=== PATIENT | female | born 1955 | race Caucasian/White ===

== ENCOUNTER 2020-10-17 10:59 | Observation (INO) ==
[2020-10-17] MEDS ORDERED: SODIUM CHLORIDE 0.9% 1000ML 1,000 ML IV STA (11:23)
[2020-10-17] MEDS ORDERED: ALBUTEROL 0.083% NEBU SOLN 3 ML VIAL NEB STA (11:23)
--- NOTE | 2020-10-17 11:28 | Emergency Department Note ---
Impression & Plan COPD exacerbation, Hypoxia, Acute hyponatremia ED Provider Note NAME: ADALBRETO VALENTINE AGE: 65 SEX: F : 1955 ARRIVES VIA: Ambulance INFORMANT: Patient ED PROVIDER(S): Kg Gonzalez DO CHIEF COMPLAINT: Shortness of breath HPI: Patient is a 65-year-old female with a past medical history of smoking who presents to the ER for shortness of breath, cough, and congestion. Symptoms started about 2 months ago. They have worsened over the past 2 weeks. She adm its to chest tightness with this although it resolves with using her family members inhaler last night. Shortness of breath has been present for 2 weeks. Chest tightness has been present for the past 2 weeks as well. She notes she feels like she cannot take a deep breath. Denies any belly pain, nausea, vomiting, or diarrhea. No dysuria, urgency, or frequency. She was seen and evaluated at [facility] and had a pulse ox 89% and was sent over via ambulance. She was given an hour-long neb treatment as well as 40 mg of Solu-Medrol. ROS: See above HPI for pertinent positives & negatives. A total of 10 systems reviewed and were otherwise negative. PAST MEDICAL HISTORY:See Below PAST SURGICAL HISTORY:See Below FAMILY HISTORY:See Below SOCIAL HISTORY:See Below HOME MEDICATIONS:See Below ALLERGIES:See Below VITALS:See Below PHYSICAL EXAMINATION: GENERAL: Sitting up in bed, alert, chronically ill-appearing, disheveled, cachectic, mild distress EYE EXAM: normal conjunctiva. OROPHARYNX: no exudate, no erythema, lips, buccal mucosa, and tongue normal and mucous membranes are moist NECK: supple, no nuchal rigidity, no adenopathy, non-tender LUNGS: Diffuse wheezing bilaterally. Normal chest wall mechanics HEART: no murmurs, S1 normal and S2 normal ABDOMEN: abdomen soft, non-tender, normo-active bowel sounds, no masses, no rebound or guarding. BACK: Back is symmetrical on inspection and there is no deformity, no midline tenderness, no CVA tenderness. SKIN: no rashes and no bruising UPPER EXTREMITIES: upper extremities are grossly normal. LOWER EXTREMITIES: No pitting edema. NEURO EXAM: Normal sensorium, cranial nerves II-XII grossly intact, normal speech, no gross weakness of arms, no gross weakness of legs. MEDICAL DECISION MAKING: Patient is a 65-year-old female who presents to the ER for shortness of breath referred in from urgent care she was found to be hypoxic. IV was established blood was obtained. She was brought in by EMS and given steroids.Labs show no significant leukocytosis or anemia. BMP with mild hyponatremia. LFTs bilirubin and troponin was unremarkable. Lipase slightly elevated at 1000 but has no belly pain. Covid was negative. Has diffuse wheezing bilaterally on exam. It is audible from across the room. She was given hour-long neb treatment as well as steroids and chest x-ray showed no focal infiltrate. She was updated bedside. She was hypoxic at 86% and remained on 2 L nasal cannula while in the ER. She was admitted for further work-up. Triage Nursing notes reviewed. Limited review of prior medical records performed Vital Signs: reviewed and remarkable for HTN Differential diagnosis: Differential diagnoses includes but is not limited to pneumonia, bronchitis, COPD/Asthma exacerbation, pneumothorax, pulmonary embolism, congestive heart failure, acute coronary syndrome ER treatment provided: See below Diagnostics interpreted by me: ECG: Sinus rhythm rate 72 Low voltage QTC 361 T wave flattening in the inferior leads Cardiac Monitoring: An order was placed for continuous cardiac monitoring. The monitor shows a rate of 70 with sinus rhythm. Laboratory studies: As stated above and show below. 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) Surgical History History of fusion of cervical spine History of lumbar surgery Family History Father Heart disease Social History Smoking Status: Current every day smoker Tobacco Type: Cigarettes Cigarettes Per Day: half a pack; Second Hand Exposure: No; Hx Alcohol Use: No Hx Substance Use: Yes Last Used Substance: Just Prior to Arrival Last Used Substance Other:: 10/16/20 last night Substance Use Type Other:: Medical Marijuana/CBD Preferred Language: [place] Citizen Communication Ability: Effective [employer] [place] Required: No Beliefs That Will Affect Care: None Current Living Situation: Family Feels Safe at Home: Yes Assistive Devices: Contacts and Denture - Upper Allergies Allergies Allergy/AdvReac Type Severity Reaction Status Date / Time No Known Allergies Allergy Unknown Verified 10/17/20 14:11 Home Meds Home Medications Medication Instructions Recorded Confirmed tramadol 50 mg tablet (Ultram) 50 mg PO Q4H PRN 10/17/20 10/17/20 Results & Data (ED) Vital Signs Vital Signs - 24 hr 10/17/20 11:04 10/17/20 11:24 10/17/20 11:30 Temperature 36.6 C Temperature Source Oral Pulse Rate 86 88 76 Pulse Rate [Left Finger] Pulse Rate from SpO2 Sensor 85 76 Respiratory Rate 19 20 18 Respiratory Effort / Characteristics Blood Pressure 162/94 H 134/79 Blood Pressure Mean 116 97 Pulse Oximetry 93 99 92 Oxygen Delivery Method Room Air Nebulizer Room Air Oxygen Flow Rate Sepsis Recent Fever Within 48 Hours No Sepsis New/Unexplained Change in Mental Status No Sepsis Action Taken by Nursing No Action Required Oxygen Flow Rate - Titration Pulse Oximetry Post Tiitration 10/17/20 11:33 10/17/20 11:44 10/17/20 12:00 Temperature Temperature Source Pulse Rate 78 Pulse Rate [Left Finger] 82 Pulse Rate from SpO2 Sensor 78 Respiratory Rate 20 20 Respiratory Effort / Characteristics Spontaneous Blood Pressure 141/85 H Blood Pressure Mean 103 Pulse Oximetry 87 L 95 99 Oxygen Delivery Method Nasal Cannula Nasal Cannula Nebulizer Oxygen Flow Rate 4 Sepsis Recent Fever Within 48 Hours Sepsis New/Unexplained Change in Mental Status Sepsis Action Taken by Nursing Oxygen Flow Rate - Titration 4 Pulse Oximetry Post Tiitration 94 10/17/20 12:30 10/17/20 13:23 10/17/20 13:30 Temperature Temperature Source Pulse Rate 85 Pulse Rate [Left Finger] Pulse Rate from SpO2 Sensor 86 90 Respiratory Rate 20 Respiratory Effort / Characteristics Blood Pressure 146/75 H Blood Pressure Mean 98 Pulse Oximetry 87 L 90 94 Oxygen Delivery Method Room Air Nasal Cannula Nasal Cannula Oxygen Flow Rate 4 4 Sepsis Recent Fever Within 48 Hours Sepsis New/Unexplained Change in Mental Status Sepsis Action Taken by Nursing Oxygen Flow Rate - Titration Pulse Oximetry Post Tiitration Laboratory Data Result diagrams: 10/17/20 11:31 10/17/20 11:31 Lab Results 08/24/21 08/24/21 08/24/21 Range/Units 11:31 11:31 11:31 WBC 9.63 (4.8-10.8) K/uL RBC 4.40 (4.2-5.4) M/uL Hgb 14.1 (12.0-16.0) g/dL Hct 41.0 (37-47) % MCV 93.2 (80-100) fL MCH 32.0 (25-34) pg MCHC 34.4 (32-36) g/dL RDW Std Deviation 46.9 H (36.4-46.3) fL RDW Coeff of José Miguel 13.7 (11.5-14.5) % Plt Count 350 (130-400) K/uL MPV 9.4 (7.4-10.4) fL Immature Gran % (Auto) 0.1 % Neut % (Auto) 67.2 % Lymph % (Auto) 24.2 % [place] % (Auto) 7.7 % Eos % (Auto) 0.4 % Baso % (Auto) 0.4 % Neut # (Auto) 6.47 (1.4-6.5) K/uL Lymph # (Auto) 2.33 (1.2-3.4) K/uL [place] # (Auto) 0.74 H (0.11-0.59) K/uL Eos # (Auto) 0.04 (0-0.5) K/uL Baso # (Auto) 0.04 (0-0.2) K/uL Immature Gran # (Auto) 0.01 (0.00-0.02) K/uL APTT 26.7 (21.0-31.0) Seconds PTT Ratio 1.0 Sodium 134 L (136-145) mmol/L Potassium 4.2 (3.5-5.1) mmol/L Chloride 100 (98-107) mmol/L Carbon Dioxide 25 (21-32) mmol/L Anion Gap 9.0 (3-11) BUN 8 (7-18) mg/dl Creatinine 0.41 L (0.6-1.2) mg/dl Est Cr Clr Drug Dosing 130.4 ml/min Est GFR ( Amer) 127.4 ml/min Est GFR (Non-Af Amer) 110.0 ml/min BUN/Creatinine Ratio 19.2 (10-20) Glucose 105 H (70-99) mg/dl Calcium 9.2 (8.5-10.1) mg/dl Total Bilirubin 0.3 (0.2-1) mg/dl AST 26 (15-37) U/L ALT 33 (12-78) U/L Alkaline Phosphatase 77 (45-117) U/L Troponin I < 0.015 (0-0.045) ng/ml Total Protein 7.1 (6.4-8.2) gm/dl Albumin 3.7 (3.4-5.0) gm/dl Globulin 3.4 (2.5-4.0) gm/dl Albumin/Globulin Ratio 1.1 (0.9-2) Lipase 966 H (73-393) U/L COVID-19 Eval Order SARS-CoV-2 (PCR) (Negative) 10/17/20 10/17/20 Range/Units 11:56 11:56 WBC (4.8-10.8) K/uL RBC (4.2-5.4) M/uL Hgb (12.0-16.0) g/dL Hct (37-47) % MCV (80-100) fL MCH (25-34) pg MCHC (32-36) g/dL RDW Std Deviation (36.4-46.3) fL RDW Coeff of José Miguel (11.5-14.5) % Plt Count (130-400) K/uL MPV (7.4-10.4) fL Immature Gran % (Auto) % Neut % (Auto) % Lymph % (Auto) % [place] % (Auto) % Eos % (Auto) % Baso % (Auto) % Neut # (Auto) (1.4-6.5) K/uL Lymph # (Auto) (1.2-3.4) K/uL [place] # (Auto) (0.11-0.59) K/uL Eos # (Auto) (0-0.5) K/uL Baso # (Auto) (0-0.2) K/uL Immature Gran # (Auto) (0.00-0.02) K/uL APTT (21.0-31.0) Seconds PTT Ratio Sodium (136-145) mmol/L Potassium (3.5-5.1) mmol/L Chloride (98-107) mmol/L Carbon Dioxide (21-32) mmol/L Anion Gap (3-11) BUN (7-18) mg/dl Creatinine (0.6-1.2) mg/dl Est Cr Clr Drug Dosing ml/min Est GFR ( Amer) ml/min Est GFR (Non-Af Amer) ml/min BUN/Creatinine Ratio (10-20) Glucose (70-99) mg/dl Calcium (8.5-10.1) mg/dl Total Bilirubin (0.2-1) mg/dl AST (15-37) U/L ALT (12-78) U/L Alkaline Phosphatase (45-117) U/L Troponin I (0-0.045) ng/ml Total Protein (6.4-8.2) gm/dl Albumin (3.4-5.0) gm/dl Globulin (2.5-4.0) gm/dl Albumin/Globulin Ratio (0.9-2) Lipase (73-393) U/L COVID-19 Eval Order Covid19 at [facility] SARS-CoV-2 (PCR) NEGATIVE (Negative) Administered Medications Discontinued Medications Albuterol (Albuterol 0.083% Nebu Soln 3 Ml Vial) 10 mg NEB NOW STA Stop: 10/17/20 11:24 Last Admin: 10/17/20 11:43 Dose: 10 mg Documented by: [id number] Azithromycin (Azithromycin 250 Mg Tab) 500 mg PO NOW ONE Stop: 10/17/20 13:55 Last Admin: 10/17/20 14:36 Dose: 500 mg Documented by: [id number] Sodium Chloride (Nss 1000ml) 1,000 mls @ 999 mls/hr IV .Q1H1M STA Stop: 10/17/20 12:23 Last Infusion: 10/17/20 12:31 Dose: 0 mls/hr Documented by: [id number] Admin: 10/17/20 11:30 Dose: 999 mls/hr Documented by: [id number] Prednisone (Prednisone 50 Mg Tab) 40 mg PO NOW STA Stop: 10/17/20 13:55 Last Admin: 10/17/20 14:38 Dose: Not Given Documented by: [id number] Prednisone (Prednisone 20 Mg Tab) Confirm Administered Dose 40 mg .ROUTE .STK- MED ONE Stop: 10/17/20 14:36 Last Admin: 10/17/20 14:36 Dose: 40 mg Documented by: [id number] Tramadol HCl (Tramadol Hcl 50 Mg Tablet) 50 mg PO NOW STA Stop: 10/17/20 13:33 Last Admin: 10/17/20 13:52 Dose: 50 mg Documented by: [id number] Imaging Data Radiologist's Impression: Chest X-Ray 10/17/20 11:24 XR chest 1V portable HISTORY: 65 years-old Female Chest Pain acute atypical chest pain COMPARISON: Chest radiograph 01/22/2015 TECHNIQUE: Portable AP view of the chest FINDINGS: Cardiac mediastinal and hilar silhouettes are within normal limits. No pneumothorax, pleural effusion, airspace consolidation or overt pulmonary edema. Degenerative changes of the shoulders and spine. Thoracolumbar and cervical spinal fusion hardware. IMPRESSION: No acute process. ACT 112: Negative or not required by law. The above report was generated using voice recognition software. It may contain grammatical, syntax or spelling errors. Electronically signed by: Con Jacobson M.D. 10/17/2020 11:55 AM Discharge Plan Visit Data Chief Complaint: Shortness of Breath/Dyspnea ED Provider: Kg Gonzalez Discharge Problem: COPD exacerbation, Hypoxia, Acute hyponatremia Patient Disposition: Admitted As Inpatient Discharge Instructions Interventions: ED Discharge Assessment Last Done: 10/17/20 15:46
[2020-10-17 11:39] LABS: Basophils # (auto) 0.04 K/uL (0-0.2); Basophils % (auto) 0.4 %; Eosinophils # (auto) 0.04 K/uL (0-0.5); Eosinophils % (auto) 0.4 %; Hemoglobin 14.1 g/dL (12.0-16.0); Immature Granulocytes # (auto) 0.01 K/uL (0.00-0.02); Immature Granulocytes % (auto) 0.1 %; Lymphocytes # (auto) 2.33 K/uL (1.2-3.4); Lymphocytes % (auto) 24.2 %; Mean Corpuscular Hgb Conc 34.4 g/dL (32-36); Mean Corpuscular Volume 93.2 fL (80-100); Mean Platelet Volume 9.4 fL (7.4-10.4); Monocytes # (auto) 0.74 K/uL (0.11-0.59); Monocytes % (auto) 7.7 %; Neutrophils # (auto) 6.47 K/uL (1.4-6.5); Neutrophils % (auto) 67.2 %; Platelet Count 350 K/uL (130-400); RDW Coefficient of Variation 13.7 % (11.5-14.5); RDW Standard Deviation 46.9 fL (36.4-46.3); White Blood Count 9.63 K/uL (4.8-10.8)
[2020-10-17 11:52] LABS: Partial Thromboplastin Time 26.7 Seconds (21.0-31.0)
--- NOTE | 2020-10-17 11:56 | XRay Report ---
XR chest 1V portable HISTORY: 65 years-old Female Chest Pain acute atypical chest pain COMPARISON: Chest radiograph 01/22/2015 TECHNIQUE: Portable AP view of the chest FINDINGS: Cardiac mediastinal and hilar silhouettes are within normal limits. No pneumothorax, pleural effusion , airspace consolidation or overt pulmonary edema. Degenerative changes of the shoulders and spine. T horacolumbar and cervical spinal fusion hardware. IMPRESSION: No acute process. ACT 112: Negative or not required by law. The above report was generated using voice recognition software. It may contain grammatical, syntax o r spelling errors. Electronically signed by: Con Jacobson M.D. 10/17/2020 11:55 AM
[2020-10-17 12:06] LABS: Alanine Aminotransferase 33 U/L (12-78); Albumin Level 3.7 gm/dl (3.4-5.0); Aspartate Aminotransferase 26 U/L (15-37); BUN Creatinine Ratio 19.2 (10-20); Blood Urea Nitrogen 8 mg/dl (7-18); Calcium 9.2 mg/dl (8.5-10.1); Carbon Dioxide 25 mmol/L (21-32); Chloride 100 mmol/L (98-107); Creatinine Clr Calc Pharmacy 130.4 ml/min; Est GFR (African American) 127.4 ml/min; Glucose 105 mg/dl (70-99); Lipase 966 U/L (73-393); Potassium 4.2 mmol/L (3.5-5.1); Sodium 134 mmol/L (136-145)
[2020-10-17 12:11] LABS: Albumin Globulin Ratio 1.1 (0.9-2); Alkaline Phosphatase 77 U/L (45-117); Bilirubin,Total 0.3 mg/dl (0.2-1); Globulin 3.4 gm/dl (2.5-4.0); Total Protein 7.1 gm/dl (6.4-8.2); Troponin I < 0.015 ng/ml (0-0.045)
[2020-10-17] MEDS ORDERED: traMADol HCL 50 MG TABLET PO STA (13:32)
[2020-10-17] MEDS ORDERED: AZITHROMYCIN 250 MG TAB PO ONE (13:54)
[2020-10-17] MEDS ORDERED: predniSONE 50 MG TAB PO STA (13:54)
--- NOTE | 2020-10-17 14:07 | History & Physical Report ---
Date of Service October 17, 2020 Assessment & Plan (1) COPD exacerbation: Plan: Most likely diagnosis given her 40+ pack-year smoking hx (1 ppd x 40 years). CXR on 10/17 was clear of infection. - Prednisone 40 mg PO daily x 5 days - Azithromycin x 5 days - DuoNebs standing and PRN - Supplemental O2 as needed (presently on 2L with O2 sat of 94%) - Likely discharge on Spiriva or other first-line COPD therapy (2) Anxiety: Plan: Tearful affect during my interview. Not on any home meds. - Reassurance (3) Chronic low back pain: Plan: Has had 13 surgeries of cervical to lumbar spine per patient. Was planning to get next surgery (of lumbar spine) on Friday in [place]. Has also seen Dr. Arthur in the past. No indication of acute change in this. No red flag symptoms to indicate spinal cord compromise. - Continue home tramadol PRN (4) Elevated lipase: Plan: Lipase elevated to 966 on admission. No report of abdominal pain to me. No recent hx of alcohol use per patient. Incidental finding. - No f/u required (5) DVT prophylaxis: Plan: Lovenox 40 mg SQ daily History of Present Illness Primary Care Provider: NO PCP 65yo F w/ hx of spinal issues (cervical to lumbar chronic pain) who presents with likely COPD exacerbation. She reports shortness of breath for at least 2 months. It initially presented with sinus pressure and congestion. She was seen by her ENT doctor who said she had a sinus infection and started her on "3 weeks" of antibiotics which did not improve her sinus congestion or her breathing. She was then seen by urgent care who prescribed another antibiotic (she is not sure which one) along with what sounds like Tessalon Perles (small capsule for cough) which also did not help. She went to urgent care again today where she was found to be hypoxemic and sent to the ER. She reports some transient improvement with her breathing treatment in the ER, but reports she feels back to feeling fairly bad at this time. She reports some productive sputum with her coughing. Denies f/c/ns. Denies n/v, denies lightheadedness or dizziness, denies GI symptoms. 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) Surgical History History of fusion of cervical spine History of lumbar surgery Family History Father Heart disease Social History Smoking Status: Current every day smoker Tobacco Type: Cigarettes Feels Safe at Home: Yes Review of Systems Review of Systems: All systems reviewed & are unremarkable except as noted in HPI & below Physical Exam Constitutional: WD/WN, vitals as above + acute distress Eyes: EOM intact bilaterally; no conjunctival abnormality ENMT: external ear and nose normal, oropharynx normal Neck: trachea midline, no thyromegaly normal visual inspection Respiratory: + labored breathing, + cough and + tachypneic Auscultation: + wheezes (Diffuse end-expiratory wheezing) Cardiovascular: RRR, no murmur, no edema Gastrointestinal (Abdomen): Inspection/Auscultation: abdomen normal to inspection; abdomen not distended Musculoskeletal: no cyanosis or clubbing, extremities motor strength 5/5 Skin: no rashes, warm and dry Neurologic: moves all extremities and awake Psychiatric: Orientation: alert, oriented to person and cooperative Results & Data Results & Data ([facility]) Vital Signs (Past 12 Hours) Vital Signs Temp Pulse Pulse Resp BP Pulse Ox 10/17/20 12:30 85 20 146/75 H 87 L 10/17/20 12:00 78 20 141/85 H 99 10/17/20 11:44 82 20 95 10/17/20 11:33 87 L 10/17/20 11:30 76 18 134/79 92 10/17/20 11:24 88 20 99 10/17/20 11:04 36.6 C 86 19 162/94 H 93 Code Status & VTE Plan VTE Prophylaxis Plan VTE Prophylaxis will be ordered: Yes PG Care Time/CCT Total # of Minutes Spent Total Time Spent with Patient: Total time spent is greater than 50% in coordination of care (as documented) at patient's floor/unit and/or counseling patient: Coding Level of Care Code INT OBSERVATION CARE 70M LVL 3 Diagnoses COPD exacerbation J44.1 Anxiety F41.9 Chronic low back pain M54.5; G89.29 DVT prophylaxis Z29.9 Elevated lipase R74.8
[2020-10-17] MEDS ORDERED: predniSONE 20 MG TAB ONE (14:35)
[2020-10-17] MEDS ORDERED: ACETAMINOPHEN 325 MG TAB PO PRN (16:23)
[2020-10-17] MEDS ORDERED: ONDANSETRON INJ 2 MG/ML 2 ML VIAL IV PRN (16:23)
[2020-10-17] MEDS ORDERED: ALBUT/IPRATROP 3MG/0.5MG NEB 3 ML VIAL NEB PRN (16:23)
[2020-10-17] MEDS: traMADol HCL 50 MG TABLET PO PRN ×2 (17:12→21:05)
[2020-10-17] MEDS: NICOTINE 21 MG/24 HR TDSY TD SCH (17:36)
[2020-10-17] MEDS: ALBUT/IPRATROP 3MG/0.5MG NEB 3 ML VIAL NEB SCH ×2 (17:58→19:46)
[2020-10-17] MEDS ORDERED: ENOXAPARIN INJ 40 MG/0.4 ML SYR SQ SCH (18:00)
[2020-10-17] MEDS ORDERED: hydrOXYzine HCl 10 MG TAB PO ONE (20:41)
[2020-10-18] MEDS: traMADol HCL 50 MG TABLET PO PRN ×4 (00:21→12:39)
[2020-10-18 06:54] LABS: Hematocrit (blood only) 40.4 % (37-47); Mean Corpuscular Hemoglobin 31.8 pg (25-34); Mean Corpuscular Hgb Conc 34.7 g/dL (32-36); Mean Corpuscular Volume 91.8 fL (80-100); Mean Platelet Volume 9.7 fL (7.4-10.4); Platelet Count 328 K/uL (130-400); RDW Coefficient of Variation 13.7 % (11.5-14.5); RDW Standard Deviation 46.6 fL (36.4-46.3)
[2020-10-18 07:18] LABS: BUN Creatinine Ratio 26.3 (10-20); Calcium 9.1 mg/dl (8.5-10.1); Creatinine Clr Calc Pharmacy 130.1 ml/min; Est GFR (African American) 127.4 ml/min; Magnesium 2.1 mg/dl (1.8-2.4)
[2020-10-18] MEDS: ALBUT/IPRATROP 3MG/0.5MG NEB 3 ML VIAL NEB SCH ×2 (07:29→11:31)
[2020-10-18] MEDS: NICOTINE 21 MG/24 HR TDSY TD SCH (08:56)
[2020-10-18] MEDS ORDERED: predniSONE 20 MG TAB PO SCH (09:00)
[2020-10-18] MEDS ORDERED: AZITHROMYCIN 250 MG TAB PO SCH (09:00)
--- NOTE | 2020-10-18 13:10 | Discharge Summary ---
Date of Service October 18, 2020 Admission HPI Per Admitting Provider 65yo F w/ hx of spinal issues (cervical to lumbar chronic pain) who presents with likely COPD exacerbation. She reports shortness of breath for at least 2 months. It initially presented with sinus pressure and congestion. She was seen by her ENT doctor who said she had a sinus infection and started her on "3 weeks" of antibiotics which did not improve her sinus congestion or her breathing. She was then seen by urgent care who prescribed another antibiotic (she is not sure which one) along with what sounds like Tessalon Perles (small capsule for cough) which also did not help. She went to urgent care again today where she was found to be hypoxemic and sent to the ER. She reports some transient improvement with her breathing treatment in the ER, but reports she feels back to feeling fairly bad at this time. She reports some productive sputum with her coughing. Denies f/c/ns. Denies n/v, denies lightheadedness or dizziness, denies GI symptoms. Principal Diagnosis COPD Exacerbation, acute bronchitis, Hypoxia Discharge Exam Constitutional WD/WN, vitals as above Eyes + anicteric sclerae ENMT external ear and nose normal, oropharynx normal Neck trachea midline, no thyromegaly Respiratory normal respiratory effort and + cough; no labored breathing Auscultation: + wheezes (Bilateral); no crackles and no rhonchi Cardiovascular RRR, no murmur, no edema Chest (Breasts) Chest: normal inspection of chest Gastrointestinal (Abdomen) normal bowel sounds, soft, nontender, no hepatosplenomegaly Musculoskeletal Extremities: extremities normal to inspection; no cyanosis and no clubbing Skin no rashes, warm and dry Neurologic moves all extremities and awake; no focal motor deficits Psychiatric A+Ox3, euthymic affect Lymphatic no lymphedema Discharge Data Allergies Allergy/AdvReac Type Severity Reaction Status Date / Time No Known Allergies Allergy Unknown Verified 10/17/20 14:11 Consultations 10/17/20 13:31 ED Decision to Admit Stat Ordered Studies Chest X-Ray 10/17/20 11:24 XR chest 1V portable HISTORY: 65 years-old Female Chest Pain acute atypical chest pain COMPARISON: Chest radiograph 01/22/2015 TECHNIQUE: Portable AP view of the chest FINDINGS: Cardiac mediastinal and hilar silhouettes are within normal limits. No pneumothorax, pleural effusion, airspace consolidation or overt pulmonary edema. Degenerative changes of the shoulders and spine. Thoracolumbar and cervical spinal fusion hardware. IMPRESSION: No acute process. ACT 112: Negative or not required by law. The above report was generated using voice recognition software. It may contain grammatical, syntax or spelling errors. Electronically signed by: Con Jacobson M.D. 10/17/2020 11:55 AM Hospital Course (1) COPD exacerbation: Most likely diagnosis given her 40+ pack-year smoking hx (1 ppd x 40 years). CXR on 10/17 was clear of infection. Improved by the next day, still with wheezing but felt well enough to go home, not hypoxic - Prednisone 40 mg PO daily was started and will be continued for 5 days total - Azithromycin x 5 days to be completed after discharge - DuoNebs standing and PRN was given here and she will be sent home with an albuterol inhaler -Counseled on smoking cessation - Supplemental O2 initially required but weaned off and was able to walk around without hypoxia on the day of discharge -Hydrocodone cough syrup prescribed on discharge -Will need close follow-up with PCP (2) Anxiety: Worsened recently by situational anxiety, recently moved back to the area - Reassurance given Follow-up PCP (3) Chronic low back pain: Has had 13 surgeries of cervical to lumbar spine per patient. Was planning to get next surgery (of lumbar spine) on Friday in [place]. Has also seen Dr. Arthur in the past. No indication of acute change in this. No red flag symptoms to indicate spinal cord compromise. - Continue home tramadol PRN-she needs to get set up with new PCP that we will prescribe this (4) Elevated lipase: Lipase elevated to 966 on admission. No report of abdominal pain to me. No recent hx of alcohol use per patient. Incidental finding. Improved to normal the next day Follow-up as an outpatient (5) DVT prophylaxis: Lovenox 40 mg SQ daily Discharge to home Total Time Total Time Spent Total Time Spent (In Minutes): 35 minutes Discharge Plan Discharge Items Patient Disposition: Home - Self-Care Reason For Visit: COPD EXACERBATION Discharge Diagnosis: COPD Exacerbation, Acute bronchitis. Hypoxia Condition on Discharge: Fair Activity: As commented below Lifting: Gradually increase as tolerated Bathing: No limitations Exercise/Sports: Gradually increase as tolerated Driving/Machine Use: No limitations Weightbearing: Full weightbearing Non-emergency contact: Primary Care Provider Call non-emergency contact if: you have any medication questions and your symptoms worsen Follow-up/Referrals: Carson Baldwin CRNP [Primary Care Provider] - 10/24/20 9:00 am (Your primary care provider will be SYLVIE Roche, with [facility] in [place]. You have an appointment to see him scheduled for next Friday, 10/24, at 9am. ) Diet: Regular Addtl Attending Provider Instructions: You were admitted with shortness of breath and cough from acute bronchitis and COPD exacerbation. Please continue the course of prednisone as a steroid to help calm down the inflammation in your lungs. Finish out the course of antibiotics with azithromycin as prescribed. You can use the albuterol inhaler 2 puffs every 4 hours as needed for shortness of breath or wheezing/cough. It is very important that you continue to NOT SMOKE cigarettes. You can continue to use Nicotine patches, gum, and lozenges to help you with this. You will need to wear oxygen at 1 L via the nasal cannula at all times at rest, and increase your oxygen to 3 L with any exertion. Your doctor can tell you when it is ok to wean down on your oxygen requirement. Please follow up with your new PCP as scheduled for you. Pending Studies at Discharge: No Stand-Alone Forms: My [facility], Smoking Cessation Medications and DC Order Prescriptions: New azithromycin 250 mg Tablet 250 mg PO QAM Qty: 3 RF: 0 nicotine [Nicoderm CQ] 21 mg/24 hr Patch 24 Hour 21 mg transdermal QAM Qty: 14 RF: 0 prednisone 10 mg tablet 40 mg PO DAILY Qty: 30 RF: 0 hydrocortisone 1 % Ointment 1 applic EXT BID Qty: 28.35 RF: 0 albuterol sulfate 90 mcg/actuation HFA aerosol inhaler 2 inh inhalation Q4H PRN (Reason: shortness of breath or wheezing) Qty: 8.5 RF: 0 hydrocodone-homatropine [Hycodan (with homatropine)] 5-1.5 mg/5 mL syrup 5 ml PO Q6H PRN (Reason: cough) Qty: 473 RF: 0 Continued tramadol [Ultram] 50 mg Tablet 50 mg PO Q4H PRN (Reason: Pain) RF: 0 No Action Incruse Ellipta 62.5 mcg/actuation blister with device 1 inh inhalation DAILY Qty: 30 RF: 2 Discharge Orders: Discharge Order (Routine); Ordered 10/18/20 Ordered By: Rachana Mckeon Admission Data Admit Date/Time: 10/17/20 13:54 Attending Provider: Rachana Mckeon Admit Provider: Elroy Alvarez Primary Care Provider: Carson Baldwin Other Providers: Elroy Alvarez Other Interventions: Discharge Summary Assessment (RN) Last Done: 10/18/20 13:11 Coding Level of Care Code 46974 OBS Care - Discharge Diagnoses COPD exacerbation J44.1 Anxiety F41.9 Chronic low back pain M54.5; G89.29 Elevated lipase R74.8 DVT prophylaxis Z29.9
[2020-10-18] MEDS ORDERED: HYDROCORTISONE 1% CRM 30 GM TUBE EXT SCH (13:30)
[2020-10-18] MEDS ORDERED: LEVALBUTEROL HCL 1.25 MG/3 ML NEB NEB SCH (15:00)
--- NOTE | 2020-10-20 15:25 | Electrocardiogram Report ---
Test Reason : Blood Pressure : / mmHG Vent. Rate : 072 BPM Atrial Rate : 072 BPM P-R Int : 150 ms QRS Dur : 076 ms QT Int : 336 ms P-R-T Axes : 080 029 019 degrees QTc Int : 367 ms Normal sinus rhythm Possible Left atrial enlargement Low voltage QRS Borderline ECG When compared with ECG of 10-FEB-2014 13:49, Questionable change in QRS axis Confirmed by Max Gong ([id number]) on 10/20/2020 3:25:28 PM Referred By: REFERRED SELF Confirmed By:Max Gong
== END 2020-10-18 15:17 | disposition home or self-care (01) ==
LOC: ED 10:59 → 3W 10:59 → SUATTDRO 13:54 → 3W 15:46
DX: Z20.822 Contact with and (suspected) exposure to COVID-19; E87.1 Hypo-osmolality and hyponatremia; J44.0 Chronic obstructive pulmonary disease with (acute) lower respiratory infection; M54.5 Low back pain; J44.1 Chronic obstructive pulmonary disease with (acute) exacerbation; G89.29 Other chronic pain; F17.210 Nicotine dependence, cigarettes, uncomplicated

== ENCOUNTER 2021-09-23 09:15 | Inpatient (IN) ==
[2021-09-23] MEDS ORDERED: MoRPHine SULFATE 4 MG/ML 1 ML CARP\\VIAL IV STA (10:06)
--- NOTE | 2021-09-23 10:10 | Emergency Department Note ---
History of Present Illness General Chief Complaint: Back Injury/Pain Stated Complaint: UPPER BACK PAIN Time Seen by Provider: 09/23/21 09:45 History of Present Illness Provider Complaint: back pain Onset (ago): year(s) Duration: constant Similar Symptoms Previously: Yes Location: lumbar spine and thoracic spine Quality: + sharp, + dull, + stabbing, + crushing, + aching, + tingling, + spasming and + throbbing Radiation: other (chest) Severity: severe Current Pain Intensity: 9 Relieved By: + none Exacerbated By: + none Context: no history of kidney stones or no IV drug use Associated symptoms: + chills; no fatigue, no syncope, no difficulty walking, no loss of sensation in lower extremities, no increased urinary urgency, no increased urinary frequency, no urinary incontinence, no fecal incontinence, no a change in bowel habits, no fever, no abdominal pain, no dysuria or no hematuria Home Medications Medication Instructions Recorded Confirmed Type clindamycin phosphate 1 % topical 1 applic topical DAILY #30 mL 03/21/21 06/25/21 Rx solution cyclobenzaprine 5 mg tablet 5 mg PO TID PRN muscle spasm #20 06/13/21 06/25/21 Rx tabs albuterol sulfate 90 mcg/actuation 2 puff inhalation Q6H PRN 06/25/21 06/25/21 Rx aerosol inhaler shortness of breath or wheezing #18 grams azithromycin 250 mg tablet See Rx Instructions PO .COMPLEX #6 06/25/21 06/25/21 Rx tabs compressor, for nebulizer #1 ea 06/25/21 06/25/21 Rx fluticasone fur. 100 mcg-umeclid 1 inh inhalation Q24H #60 ea 06/25/21 06/25/21 Rx 62.5 mcg-vilant 25 mcg inhalat.powder (Trelegy Ellipta) prednisone 20 mg tablet 40 mg PO DAILY 5 days #10 tabs 06/25/21 06/25/21 Rx albuterol sulfate 1.25 mg/3 mL 1.25 mg (3 mL) inhalation QID PRN 06/29/21 Rx solution for nebulization shortness of breath or wheezing #90 mL duloxetine 30 mg capsule,delayed 30 mg PO DAILY #30 caps 07/16/21 Rx release duloxetine 60 mg capsule,delayed 60 mg PO DAILY #30 caps 07/16/21 Rx release Allergies Allergy/AdvReac Type Severity Reaction Status Date / Time buprenorphine [From Suboxone] Allergy Mild itching Verified 06/25/21 16:00 naloxone [From Suboxone] Allergy Mild itching Verified 06/25/21 16:00 Past Med/Surg History Medical History Anxiety COPD (chronic obstructive pulmonary disease) Depression 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 Left anterior C7 fusion screw protrudes into the prevertebral soft tissue 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) Lumbar pseudoarthrosis Lumbar spondylosis Surgical History History of fusion of cervical spine History of lumbar surgery Family History Father Heart disease Myocardial infarction Denies family history of Ovarian cancer Prostate cancer Lung cancer Colorectal cancer Social History Smoking Status: Current every day smoker Tobacco Type: Cigarettes Age Quit Using Tobacco: 65; packs per day: 0.5; Years Smoked: 40; Cigarettes Per Day: half a pack; Second Hand Exposure: No; Hx Alcohol Use: No Hx Substance Use: No Preferred Language: Khmer Communication Ability: Effective Visual Impairment: No Limitations Portfolio Administrator Required: No Beliefs That Will Affect Care: None marital status: Single Current Living Situation: Family current occupational status: disabled Feels Safe at Home: Yes Childhood Exposure to Second-Hand Smoke: Yes caffeine: Yes (coffee) during the past year weight has: remained stable Dental Care, Regularly: Yes Physical Activity Frequency: Daily Seatbelt Use: always Sunscreen Use: Yes Assistive Devices: Contacts, Denture - Upper and Glasses Review of Systems A total of 10 systems reviewed and were otherwise negative Physical Exam Vital Signs Vital Signs - 24 hr 09/23/21 10:01 09/23/21 10:02 09/23/21 10:07 Temperature 37.1 C 36.8 C Temperature Source Skin Oral Pulse Rate 88 70 Pulse Rate [Right Finger] 73 Pulse Rhythm Regular Pulse Rhythm [Right Finger] Regular Pulse Strength Normal Pulse Strength [Right Finger] Normal Respiratory Rate 20 18 17 Respiratory Effort / Characteristics Non-Labored Spontaneous Non-Labored Spontaneous Non-Labored Spontaneous Respiratory Depth Normal Normal Normal Respiratory Pattern Regular Regular Blood Pressure 177/95 H 108/75 Blood Pressure [Right Arm] 108/75 Blood Pressure Mean 122 86 Blood Pressure Mean [Right Arm] 86 Blood Pressure Position Lying Blood Pressure Position [Right Arm] Lying Pulse Oximetry 93 96 96 Oxygen Delivery Method Room Air Room Air Room Air Sepsis Recent Fever Within 48 Hours No No Sepsis New/Unexplained Change in Mental Status N/A No Sepsis Action Taken by Nursing No Action Required No Action Required 09/23/21 11:18 09/23/21 13:00 09/23/21 13:35 Temperature Temperature Source Pulse Rate Pulse Rate [Right Finger] 86 Pulse Rhythm Pulse Rhythm [Right Finger] Regular Pulse Strength Pulse Strength [Right Finger] Respiratory Rate 20 20 Respiratory Effort / Characteristics Non-Labored Respiratory Depth Normal Respiratory Pattern Blood Pressure Blood Pressure [Right Arm] 121/96 Blood Pressure Mean Blood Pressure Mean [Right Arm] 104 Blood Pressure Position Blood Pressure Position [Right Arm] Pulse Oximetry 97 96 Oxygen Delivery Method Room Air Room Air Room Air Sepsis Recent Fever Within 48 Hours Sepsis New/Unexplained Change in Mental Status Sepsis Action Taken by Nursing Physical Exam GENERAL: She is oriented to person, place, and time. She appears well-developed and well-nourished. She does not appear distressed. HENT: Exam performed. -Head: Normocephalic and atraumatic. -Right Ear: External ear normal. No mastoid tenderness. -Left Ear: External ear normal. No mastoid tenderness. -Mouth/Throat: The oropharynx is clear and moist. No trismus in the jaw. No dental abscesses or uvula swelling. No oropharyngeal exudate or tonsillar abscesses. EYES: Conjunctivae and EOM are normal. Pupils are equal, round, and reactive to light. Right eye exhibits no discharge. Left eye exhibits no discharge. No scleral icterus. NECK: Normal range of motion. Neck supple. No JVD present. No spinous process tenderness present. No carotid bruit present. No rigidity. No tracheal deviation and normal range of motion present. No Brudzinski's sign and no Kernig's sign noted. CV: Normal rate, regular rhythm, normal heart sounds and intact distal pulses. There is no peripheral edema. Palpable radial pulses bue. PULM/CHEST: Effort normal and breath sounds normal. No respiratory distress. No stridor. She has no wheezes. She has no rales. -Chest Wall: She exhibits no tenderness. ABD: The abdomen is soft. Bowel sounds are normal. She has no distension. No mass is present. There is no tenderness. There is no rebound, no guarding, no Ramos's sign and no tenderness at McBurney's point. Rovsig negative MUSC/SKEL: Pain on palpation of the thoracic and lumbar spine. LYMPH: No cervical adenopathy. NEURO: She is alert and oriented to person, place, and time. She has normal strength. No cranial nerve deficit or sensory deficit. Coordination and gait normal. GCS eye subscore is 4. GCS verbal subscore is 5. GCS motor subscore is 6. Cerebellar tests wnl. No saddle anesthesias or paresthesias. SKIN: Skin is warm and dry. She is not diaphoretic. PSYCH: She has a normal mood and affect. Behavior is normal. Judgment and thought content normal. Course Course 0945: The patient was evaluated in room C11. A complete history and physical exam was performed Cardiac monitoring: An order was placed for continuous cardiac monitoring. The monitor shows a rate of 70 with sinus rhythm Patient has paperwork with her. She has a reported from an MRI done in April 2020. The MRIs are for an MRI of the thoracic spine with and without contrast as well as an MRI of the lumbar spine with and without contrast. The study results for the MRI of the thoracic spine shows degenerative changes T1-T2 T3-4 with mild central stenosis but no cord compression. The results for the MRI of the lumbar spine show an extensive posterior fusion T12-L5 with a postsurgical fluid signal collection of the posterior laminectomy seroma/hematoma abscess not excluded. No mass-effect on the thecal sac. There is also posterior disc bulge and central disc protrusion and annular tear at L5-S1. The MRI results were signed by Dr. Nathaneal Chen May 18, 2020. The patient states that she has had at least 10 back surgeries done by Dr. Arthur. Labs analgesia and MRIs ordered for the patient. 1230: Patient's troponin came back elevated 8876 and lactate 2.2. An MRI will to complete EKG at this time since she has in MRI. 1324: Upon arrival back from MRI and EKG was immediately completed. Patient is not reporting any chest pain at this time. EKG does show STEMI with ST elevation in leads II, III, aVF with ST depression in leads I and aVL. Code heart alert called. Spoke with Dr. Stringer on-call interventional cardiology will come down to evaluate the patient. 1346: Triston the T and L-spine shows no cord compression. Chest x-ray negative. Interventional cardiology Dr. Stringer at bedside will take the patient to [facility]. Administered Medications Sodium Chloride (Nss 1000ml) 1,000 mls @ 125 mls/hr IV .Q8H AURELIO Stop: 10/23/21 10:14 Last Admin: 09/23/21 11:26 Dose: 125 mls/hr Documented By: VANDANA Discontinued Medications Aspirin (Aspirin 81 Mg Chew) 324 mg PO NOW STA Stop: 09/23/21 13:27 Last Admin: 09/23/21 13:29 Dose: 324 mg Documented By: RON Gadobutrol (Gadobutrol 65ml Vial) 6.5 ml IV ONCE ONE Stop: 09/23/21 12:41 Last Admin: 09/23/21 12:40 Dose: 6.5 ml Documented By: JOSE JUAN Heparin Sodium (Porcine) (Heparin Sod (Porcine) 1000 Unit/Ml) 4,000 units IV ONCE ONE Stop: 09/23/21 13:43 Last Admin: 09/23/21 13:43 Dose: 4,000 units Documented By: RON Co-signed By: IMCHAEL Morphine Sulfate (Morphine Sulfate 4 Mg/Ml 1 Ml Carp\Vial) 4 mg IV NOW STA Stop: 09/23/21 10:07 Last Admin: 09/23/21 11:26 Dose: 4 mg Documented By: VANDANA Medical Decision Making Laboratory Data Result diagrams: 09/23/21 11:10 09/23/21 11:10 Lab Results 09/23/21 09/23/21 09/23/21 Range/Units 11:10 11:10 11:10 WBC 11.34 H (4.8-10.8) K/ul RBC 4.34 (3.93-5.22) M/uL Hgb 13.4 (12.0-16.0) g/dl Hct 38.4 (34.1-44.9) % MCV 88.5 (80.0-100.0) fL MCH 30.9 (25.0-34.0) pg MCHC 34.9 (32.0-36.0) g/dL RDW Std Deviation 43.1 (36.4-46.3) fL RDW Coeff of José Miguel 13.2 (11.5-14.5) % Plt Count 263 (130-400) K/uL MPV 10.5 (9.4-12.3) fL Immature Gran % (Auto) 0.4 % Neut % (Auto) 78.2 % Lymph % (Auto) 12.9 % [place] % (Auto) 8.1 % Eos % (Auto) 0.2 % Baso % (Auto) 0.2 % Neut # (Auto) 8.88 H (1.4-6.5) K/uL Lymph # (Auto) 1.46 (1.2-3.4) K/uL [place] # (Auto) 0.92 H (0.24-0.82) K/uL Eos # (Auto) 0.02 (0-0.50) K/uL Baso # (Auto) 0.02 (0-0.2) K/uL Immature Gran # (Auto) 0.04 H (0.00-0.02) K/uL ESR 57 H (0-30) mm/hr PT (9.0-12.0) Seconds INR (0.9-1.1) APTT (21.0-31.0) Seconds PTT Ratio Sodium 125 L (136-145) mmol/L Potassium 4.8 (3.5-5.1) mmol/L Chloride 93 L (98-107) mmol/L Carbon Dioxide 23 (21-32) mmol/L Anion Gap 9 (3-11) BUN 16 (6-23) mg/dl Creatinine 0.52 L (0.6-1.2) mg/dl Est Cr Clr Drug Dosing 117.5 ml/min Est GFR ( Amer) 117.0 ml/min Est GFR (Non-Af Amer) 101.0 ml/min BUN/Creatinine Ratio 30.8 H (10-20) Glucose 117 H (70-99(Fasting)) mg/dl Lactate (0.4-2.0) mmol/L Calcium 9.3 (8.5-10.1) mg/dl Troponin I High Sens 8876.4 H* (0-14) pg/ml C-Reactive Protein 15.20 H (0-0.5) mg/dl Procalcitonin (0-0.5) ng/ml 09/23/21 09/23/21 09/23/21 Range/Units 11:10 11:10 11:10 WBC (4.8-10.8) K/ul RBC (3.93-5.22) M/uL Hgb (12.0-16.0) g/dl Hct (34.1-44.9) % MCV (80.0-100.0) fL MCH (25.0-34.0) pg MCHC (32.0-36.0) g/dL RDW Std Deviation (36.4-46.3) fL RDW Coeff of José Miguel (11.5-14.5) % Plt Count (130-400) K/uL MPV (9.4-12.3) fL Immature Gran % (Auto) % Neut % (Auto) % Lymph % (Auto) % [place] % (Auto) % Eos % (Auto) % Baso % (Auto) % Neut # (Auto) (1.4-6.5) K/uL Lymph # (Auto) (1.2-3.4) K/uL [place] # (Auto) (0.24-0.82) K/uL Eos # (Auto) (0-0.50) K/uL Baso # (Auto) (0-0.2) K/uL Immature Gran # (Auto) (0.00-0.02) K/uL ESR (0-30) mm/hr PT 11.3 (9.0-12.0) Seconds INR 1.1 (0.9-1.1) APTT 25.6 (21.0-31.0) Seconds PTT Ratio 0.9 Sodium (136-145) mmol/L Potassium (3.5-5.1) mmol/L Chloride (98-107) mmol/L Carbon Dioxide (21-32) mmol/L Anion Gap (3-11) BUN (6-23) mg/dl Creatinine (0.6-1.2) mg/dl Est Cr Clr Drug Dosing ml/min Est GFR ( Amer) ml/min Est GFR (Non-Af Amer) ml/min BUN/Creatinine Ratio (10-20) Glucose (70-99(Fasting)) mg/dl Lactate 2.2 H* (0.4-2.0) mmol/L Calcium (8.5-10.1) mg/dl Troponin I High Sens (0-14) pg/ml C-Reactive Protein (0-0.5) mg/dl Procalcitonin 0.15 (0-0.5) ng/ml [facility] Narrative 0945: The patient was evaluated in room C11. A complete history and physical exam was performed Cardiac monitoring: An order was placed for continuous cardiac monitoring. The monitor shows a rate of 70 with sinus rhythm Patient has paperwork with her. She has a reported from an MRI done in April 2020. The MRIs are for an MRI of the thoracic spine with and without contrast as well as an MRI of the lumbar spine with and without contrast. The study results for the MRI of the thoracic spine shows degenerative changes T1-T2 T3-4 with mild central stenosis but no cord compression. The results for the MRI of the lumbar spine show an extensive posterior fusion T12-L5 with a postsurgical fluid signal collection of the posterior laminectomy seroma/hematoma abscess not excluded. No mass-effect on the thecal sac. There is also posterior disc bulge and central disc protrusion and annular tear at L5-S1. The MRI results were signed by Dr. Nathanael Chen May 18, 2020. The patient states that she has had at least 10 back surgeries done by Dr. Arthur. Labs analgesia and MRIs ordered for the patient. 1230: Patient's troponin came back elevated 8876 and lactate 2.2. An MRI will to complete EKG at this time since she has in MRI. 1324: Upon arrival back from MRI and EKG was immediately completed. Patient is not reporting any chest pain at this time. EKG does show STEMI with ST elevation in leads II, III, aVF with ST depression in leads I and aVL. Code heart alert called. Spoke with Dr. Stringer on-call interventional cardiology will come down to evaluate the patient. 1346: Interventional cardiology Dr. Stringer at bedside will take the patient to [place]. Impression & Plan ST elevation (STEMI) myocardial infarction, Acute hyponatremia, Back pain Critical Care Time Critical Care Time: Yes Total Critical Care Time: 38 I have personally spent greater than 38 minutes of critical care time in the direct management of this patient. This includes bedside care, interpretation of diagnostic studies, and testing, discussion with consultants, patient, and family members, and other required patient management activities. This 38 minutes is in excess of all separately billable procedures. Discharge Plan Visit Data Chief Complaint: Back Injury/Pain Stated Complaint: UPPER BACK PAIN ED Provider: Bakari Churchill Discharge Problem: ST elevation (STEMI) myocardial infarction, Acute hyponatremia, Back pain Patient Disposition: Admitted As Inpatient Forms Stand Alone Forms: [facility] Prescriptions Prescriptions: No Action cyclobenzaprine 5 mg tablet 5 mg PO TID PRN (Reason: muscle spasm) Qty: 20 0RF albuterol sulfate 1.25 mg/3 mL solution for nebulization 1.25 mg inhalation QID PRN (Reason: shortness of breath or wheezing) Qty: 90 2RF duloxetine 30 mg capsule,delayed release(DR/EC) 30 mg PO DAILY Qty: 30 2RF Rx Instructions: Take with Duloxetine 60 mg to = 90 mg. duloxetine 60 mg capsule,delayed release(DR/EC) 60 mg PO DAILY Qty: 30 2RF Rx Instructions: po daily clindamycin phosphate 1 % solution 1 applic topical DAILY Qty: 30 1RF albuterol sulfate 90 mcg/actuation HFA aerosol inhaler 2 puff inhalation Q6H PRN (Reason: shortness of breath or wheezing) Qty: 18 3RF Trelegy Ellipta 100-62.5-25 mcg blister with device 1 inh inhalation Q24H Qty: 60 2RF prednisone 20 mg tablet 40 mg PO DAILY 5 Days Qty: 10 0RF azithromycin 250 mg tablet See Rx Instructions PO .COMPLEX Qty: 6 0RF Rx Instructions: take 500 mg today (day 1), then 250 mg for 4 days (days 2-5) PO (DME) compressor, for nebulizer Device See Rx Instructions .Route Qty: 1 0RF Rx Instructions: As directed Referrals Referrals: Carson Baldwin CRNP [Primary Care Provider] -
[2021-09-23] MEDS ORDERED: SODIUM CHLORIDE 0.9% 1000ML 1,000 ML IV SCH (10:15)
--- NOTE | 2021-09-23 11:04 | XRay Report ---
XR chest 1V portable CLINICAL HISTORY: Back and chest pain. COMPARISON STUDY: Chest radiograph October 17, 2020. FINDINGS: Lung volumes are normal. Lungs are clear. There is no pneumothorax or pleural effusion. Car diac size is normal. Mediastinal contours are normal. There is no evidence for pulmonary edema. Posto perative findings within the spine are incidentally noted. IMPRESSION: No acute cardiopulmonary findings. ACT 112: Negative or not required by law. Electronically signed by: Panchito Feldman M.D. 09/23/2021 11:02 AM
[2021-09-23 11:33] LABS: Basophils # (auto) 0.02 K/uL (0-0.2); Basophils % (auto) 0.2 %; Eosinophils # (auto) 0.02 K/uL (0-0.50); Eosinophils % (auto) 0.2 %; Hematocrit (blood only) 38.4 % (34.1-44.9); Hemoglobin 13.4 g/dl (12.0-16.0); Immature Granulocytes # (auto) 0.04 K/uL (0.00-0.02); Immature Granulocytes % (auto) 0.4 %; Lymphocytes # (auto) 1.46 K/uL (1.2-3.4); Lymphocytes % (auto) 12.9 %; Mean Corpuscular Hemoglobin 30.9 pg (25.0-34.0); Mean Corpuscular Hgb Conc 34.9 g/dL (32.0-36.0); Mean Corpuscular Volume 88.5 fL (80.0-100.0); Mean Platelet Volume 10.5 fL (9.4-12.3); Monocytes # (auto) 0.92 K/uL (0.24-0.82); Monocytes % (auto) 8.1 %; Neutrophils # (auto) 8.88 K/uL (1.4-6.5); Neutrophils % (auto) 78.2 %; Platelet Count 263 K/uL (130-400); RDW Coefficient of Variation 13.2 % (11.5-14.5); RDW Standard Deviation 43.1 fL (36.4-46.3); Red Blood Count 4.34 M/uL (3.93-5.22); White Blood Count 11.34 K/ul (4.8-10.8)
[2021-09-23 11:44] LABS: INR 1.1 (0.9-1.1); Partial Thromboplastin Ratio 0.9; Partial Thromboplastin Time 25.6 Seconds (21.0-31.0); Prothrombin Time 11.3 Seconds (9.0-12.0)
[2021-09-23 11:53] LABS: BUN Creatinine Ratio 30.8 (10-20); C Reactive Protein 15.2 mg/dl (0-0.5); Calcium 9.3 mg/dl (8.5-10.1); Creatinine Clr Calc Pharmacy 117.5 ml/min; Potassium 4.8 mmol/L (3.5-5.1)
[2021-09-23 12:03] LABS: Troponin I High Sensitivity 8876.4 pg/ml (0-14)
[2021-09-23] MEDS ORDERED: GADOBUTROL 65ML VIAL IV ONE (12:40)
--- NOTE | 2021-09-23 13:14 | Magnetic Resonance Report ---
MRI OF THE THORACIC SPINE WITH AND WITHOUT CONTRAST CLINICAL HISTORY: Severe back pain. Evaluate for cord compression. COMPARISON: Thoracic spine MRI May 17, 2010. TECHNIQUE: Utilizing a 1.5 Cinda magnet and dedicated coil, multiplanar, multiecho imaging of the th oracic spine was performed before and after the intravenous administration of 6.5 cc. FINDINGS: Exam is mildly compromised by motion artifact. No acute thoracic spine fracture is noted. T here is no suspicious marrow replacement. Thoracic cord signal and caliber are normal. There is no in tracanalicular mass or fluid collection. No abnormal enhancement within the thoracic canal is noted. Discogenic changes are most pronounced at the T3-T4 level. Paravertebral soft tissues are unremarkabl e. Moderate multilevel disc space narrowing is noted. There are multiple small disc protrusions. Ther e is mild multilevel central canal stenosis within the thoracic spine. Mild multilevel neural foramin al stenosis is also present. Postoperative findings within the cervical spine are partially imaged. T horacolumbar spine fusion is better depicted on the lumbar spine CT which will be reported separately . IMPRESSION: 1. Exam mildly compromised by motion artifact. No thoracic cord compression. Normal thoracic cord sig nal and caliber. 2. Multilevel degenerative disc disease and facet arthrosis within the thoracic spine. No severe sten osis. Mild multilevel central canal or neural foraminal stenosis. ACT 112: Negative or not required by law. Electronically signed by: Panchito Feldman M.D. 09/23/2021 1:11 PM
--- NOTE | 2021-09-23 13:25 | Magnetic Resonance Report ---
MRI OF THE LUMBAR SPINE WITH AND WITHOUT CONTRAST CLINICAL HISTORY: Severe back pain. Evaluate for cord compression. COMPARISON STUDY: Lumbar spine MRI December 08, 2013. TECHNIQUE: Utilizing a 1.5 Cinda magnet and dedicated coil, multiplanar, multiecho imaging of the ronaldo ar spine was performed before and after uneventful IV administration of 6.5 mL of Gadavist. FINDINGS: For purposes of numbering on this exam, the L5-S1 disc space is assigned to axial image 36 of 41. The re is straightening of the normal lumbar lordosis. Vertebral body heights are maintained. There is no compression fracture. Evaluation is compromised by susceptibility artifact from surgical hardware. B ilateral pedicle screw fusion from T12 through L5 is noted with multilevel discectomy. No intracanali cular mass or fluid collection. Paravertebral soft tissues are grossly unremarkable. Conus terminates at approximately the upper L1 level. Left renal cyst is incidentally noted. L1-2: The central canal is patent. Neural foramen are also patent although partially obscured due to susceptibility artifact. L2-3: Central canal is patent. Neural foramen are grossly patent. L3-4: Central canal is patent. Neural foramen are grossly patent. L4-5: Central canal and left neural foramen are patent. Mild narrowing of the right neural foramen. L5-S1: Disc bulge is present. There is minimal central canal narrowing. Neural foramen are suboptimal ly assessed on this exam. Moderate left and mild right neural foraminal stenosis is suspected. IMPRESSION: 1. Extensive postoperative findings within the spine, as described above. Multilevel posterior decomp ression and discectomy with T12-L5 bilateral pedicle screw fusion. 2. No lumbar spine fracture. No significant central stenosis within the lumbar spine. 3. Neural foramen suboptimally assessed due to susceptibility artifact from hardware. Moderate multil evel narrowing, as described above. ACT 112: Negative or not required by law. Electronically signed by: Panchito Feldman M.D. 09/23/2021 1:23 PM
[2021-09-23] MEDS ORDERED: ASPIRIN 81 MG CHEW PO STA (13:26)
[2021-09-23] MEDS ORDERED: NITROGLYCERIN/D5W 100MCG/ML 20ML SYR ONE (13:34)
[2021-09-23] MEDS ORDERED: niCARdipine HCL INJ 2.5 MG/ML 10 ML AMP ONE (13:34)
[2021-09-23] MEDS ORDERED: HEPARIN (PORCINE) 1000 UNIT/ML 10 ML (CATH LAB USE ONLY) ONE (13:34)
[2021-09-23] MEDS ORDERED: MIDAZOLAM HCL 1 MG/ML 2ML VIAL ONE ×2 (13:34→14:13)
[2021-09-23] MEDS ORDERED: fentaNYL citrate 100 MCG/2 ML VIAL ONE ×2 (13:34→14:12)
[2021-09-23] MEDS ORDERED: CLOPIDOGREL BISULFATE 300 MG TAB ONE (13:39)
[2021-09-23] MEDS ORDERED: HEPARIN SOD (PORCINE) 1000 UNIT/ML ONE (13:39)
[2021-09-23] MEDS ORDERED: HEPARIN SOD (PORCINE) 1000 UNIT/ML IV ONE (13:42)
[2021-09-23] MEDS ORDERED: ATROPINE SULFATE 0.1 MG/ML 10ML SYR IV ONE (14:06)
[2021-09-23] MEDS ORDERED: EPTIFIBATIDE 0.75 MG/ML 75MG VIAL (CATH LAB USE ONLY) ONE (14:07)
[2021-09-23] MEDS ORDERED: EPTIFIBATIDE 2 MG/ML 10 ML VIAL (CATH LAB USE ONLY) IV ONE ×2 (14:07→14:08)
[2021-09-23] MEDS ORDERED: ceFAZolin 330 MG/ML 1 GM VIAL ONE (14:22)
[2021-09-23] MEDS ORDERED: diphenhydrAMINE 50 MG/ML VIAL ONE (14:42)
--- NOTE | 2021-09-23 15:49 | History & Physical Report ---
Date of Service September 23, 2021 Assessment & Plan (1) ST elevation (STEMI) myocardial infarction: Plan: STEMI with stenting to RCA - complicated with dissection - HScTNI post procedure and continue to trend - ECHO in am evaluate heart function and guide further medical optimization - ASA/PLavix Qam - BB initiation as tolerated per cards - ADE/ARB following hemodynamics in AM - Bedrest 4-6 hours following femoral closure - Lipid panel in AM- not on statin- will start Atorvastatin 40mg adjust as warranted - HGB A1C in am Cath summary: RCA 100 % occlusion LAD 50% in the midsegment LCX: minimal irregularities Left Ventricular Angiography EF (%): 40 Wall Motion: Inferior (Akinetic) Mitral Regurgitation: 1+ (2) Back pain: Plan: Chronic - continue cyclobenzaprine prn - lidocaine patch - Tylenol - continue steroid taper- 20mg tomorrow then 10mg - famotidine q12 with antiplatelet loads and steroid taper (3) COPD (chronic obstructive pulmonary disease): Plan: Continues to smoke- smoking cessation education post ND - no recent PFTs - Last admission for exacerbation was 10/14 - Continue albuterol inh/nebulizers - Continue Trelegy or equivalent (4) Depression: Plan: Continue Duloxetine 90mg daily History of Present Illness Primary Care Provider: SYLVIE Tse 66 YOF with medical history of: Smoker, COPD, Chronic back pain, anxiety, failed cervical fusion. Patient comes to the EMD for complaints of upper back pain. In the EMD the patient had routine labs completed, MRI of her back. Upon return from MRI patient noted to have increase in HScTNI [id number] an ECG was then obtained with reported STEMI of inferior leads. 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 Patient was interviewed in the ICU post cardiac cath procedure. She was loaded with ASA and Plavix in the EMD and Integrilin thought the procedure. 3 CARLIE to the RCA with resulting PATRICIA flow III and small dissection proximal. LVgram reported as EF 40% with inferior hypokinesis. ECHO in AM. Patient to ICU overnight. Continue to trend HScTNI, ECG, initiate BB likely. Continue with ASA/Plavix. Patient symptoms reportedly started about 1 month ago. Symptoms were upper back pain with radiation around to left chest. This occurred while she was moving into a new apartment lifting some boxes and going up in the elevator. She went to her PCP on Friday as her pain was both sides around the back into her chest. She was give prednisone. She states that even today that her pain did not change from last week until this week. Denies She does endorse some nausea and vomiting but thought that this was related to the Prednisone. Patient had radial and femoral access on her right side. For her lower back pain she has partial T12 Laminectomy with L1-L4 fusion and discectomy. She states that she is still waiting to get her back fixed. See MRI of Thoracic and Lumbar below. She was given Prednisone with taper from 40mg starting on . She would be 20mg and then 10mg on the next proceeding days. COVID test on admission is: NEGATIVE Allergies Allergy/AdvReac Type Severity Reaction Status Date / Time buprenorphine [From Suboxone] Allergy Mild itching Verified 06/25/21 16:00 naloxone [From Suboxone] Allergy Mild itching Verified 06/25/21 16:00 Home Medications Medication Instructions Recorded Confirmed Type clindamycin phosphate 1 % topical 1 applic topical DAILY #30 mL 03/21/21 06/25/21 Rx solution cyclobenzaprine 5 mg tablet 5 mg PO TID PRN muscle spasm #20 06/13/21 06/25/21 Rx tabs albuterol sulfate 90 mcg/actuation 2 puff inhalation Q6H PRN 06/25/21 06/25/21 Rx aerosol inhaler shortness of breath or wheezing #18 grams azithromycin 250 mg tablet See Rx Instructions PO .COMPLEX #6 06/25/21 06/25/21 Rx tabs compressor, for nebulizer #1 ea 06/25/21 06/25/21 Rx fluticasone fur. 100 mcg-umeclid 1 inh inhalation Q24H #60 ea 06/25/21 06/25/21 Rx 62.5 mcg-vilant 25 mcg inhalat.powder (Trelegy Ellipta) prednisone 20 mg tablet 40 mg PO DAILY 5 days #10 tabs 06/25/21 06/25/21 Rx albuterol sulfate 1.25 mg/3 mL 1.25 mg (3 mL) inhalation QID PRN 06/29/21 Rx solution for nebulization shortness of breath or wheezing #90 mL duloxetine 30 mg capsule,delayed 30 mg PO DAILY #30 caps 07/16/21 Rx release duloxetine 60 mg capsule,delayed 60 mg PO DAILY #30 caps 07/16/21 Rx release Past Med/Surg History Medical History Anxiety CAD (coronary artery disease) COPD (chronic obstructive pulmonary disease) Depression 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 Left anterior C7 fusion screw protrudes into the prevertebral soft tissue 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) Lumbar pseudoarthrosis Lumbar spondylosis Smoker Surgical History History of fusion of cervical spine History of lumbar surgery Family History Father Heart disease Myocardial infarction Denies family history of Ovarian cancer Prostate cancer Lung cancer Colorectal cancer Social History Smoking Status: Current some day smoker Tobacco Type: Cigarettes Age Quit Using Tobacco: 65; packs per day: 0.5; Years Smoked: 40; Cigarettes Per Day: half a pack; Second Hand Exposure: No; Hx Alcohol Use: No Hx Substance Use: No Preferred Language: Luxembourgish Communication Ability: Effective Visual Impairment: No Limitations Network Planner Required: No Beliefs That Will Affect Care: None marital status: Single Current Living Situation: Alone current occupational status: disabled Feels Safe at Home: Yes Safety Concerns: Feels Safe At This Time Childhood Exposure to Second-Hand Smoke: Yes caffeine: Yes (coffee) during the past year weight has: remained stable Dental Care, Regularly: Yes Physical Activity Frequency: Daily Seatbelt Use: always Sunscreen Use: Yes Assistive Devices: Denture - Upper, Denture - Lower and Glasses Review of Systems Review of Systems: REVIEW OF SYSTEMS: Constitutional: No fever, sweats or chills Eyes: No diplopia, no worsening or blurred vision ENT: normal hearing, no trouble swallowing Respiratory: (+) dyspnea with exertion, No cough, sputum, dyspnea at rest Cardiovascular: No chest pain, tightness or palpitations Abdomen: (+) nausea and vomiting, No diarrhea or constipation Musculoskeletal: (+) chronic back pain, No joint pain, calf pain, swelling Neurologic: No weakness, numbness/tingling, or balance problems Psychiatric:(+) anxiety/depression Skin: No rash or itch Physical Exam Physical Exam: PHYSICAL EXAM: General: awake, alert, no apparent distress Head: Normocephalic, atraumatic ENT: PERRL, EOMI, no pharyngeal exudate, mucous membranes moist Neuro: AAO x 3, speech clear and appropriate, strength intact bilaterally 5/5, sensation intact and equal all extremities and dermatomes, no pronator drift Chest: equal rise and fall of the chest, no accessory muscle use, no heaves or thrills, scattered wheeze, on room air, Cardiac: Regular rate and rhythm, telemetry reviewed- NSR with remaining ST elevation in inferior, skin warm dry, cap refill <3 seconds, peripheral pulses +2 no JVD, no murmur, no edema, femoral access without hematoma or bruit GI: NABS x 4 quadrants, soft, nontender to palpation, no rebound, guarding or tenderness : Spontaneously voiding, no pain, no CVA tenderness, Extremities: Normal inspection, no peripheral edema or erythema, calfs nontender to palpation Psych: Normal mood and affect Skin: no rash or erythema Results & Data Results & Data ([facility]) Vital Signs (Past 12 Hours) Vital Signs Temp Pulse Pulse Resp BP BP Pulse Ox 09/23/21 13:47 09/23/21 13:45 131/84 09/23/21 13:44 83 16 09/23/21 13:40 67 28 H 09/23/21 13:34 101/59 L 09/23/21 13:34 71 18 09/23/21 13:30 61 21 09/23/21 13:24 71 16 09/23/21 13:19 82 17 09/23/21 13:18 82 14 09/23/21 13:35 09/23/21 13:00 86 20 121/96 96 09/23/21 11:18 20 97 09/23/21 10:07 73 17 108/75 96 09/23/21 10:02 36.8 C 70 18 108/75 96 09/23/21 10:01 37.1 C 88 20 177/95 H 93 O2 Del Method 09/23/21 13:47 Room Air 09/23/21 13:45 Room Air 09/23/21 13:44 Room Air 09/23/21 13:40 Room Air 09/23/21 13:34 Room Air 09/23/21 13:34 09/23/21 13:30 09/23/21 13:24 09/23/21 13:19 09/23/21 13:18 09/23/21 13:35 Room Air 09/23/21 13:00 Room Air 09/23/21 11:18 Room Air 09/23/21 10:07 Room Air 09/23/21 10:02 Room Air 09/23/21 10:01 Room Air Laboratory Results Laboratory Results - last 24 hr 09/23/21 09/23/21 09/23/21 11:10 11:10 11:10 WBC 11.34 H RBC 4.34 Hgb 13.4 Hct 38.4 MCV 88.5 MCH 30.9 MCHC 34.9 RDW Std Deviation 43.1 RDW Coeff of José Miguel 13.2 Plt Count 263 MPV 10.5 Immature Gran % (Auto) 0.4 Neut % (Auto) 78.2 Lymph % (Auto) 12.9 Dougherty % (Auto) 8.1 Eos % (Auto) 0.2 Baso % (Auto) 0.2 Neut # (Auto) 8.88 H Lymph # (Auto) 1.46 Dougherty # (Auto) 0.92 H Eos # (Auto) 0.02 Baso # (Auto) 0.02 Immature Gran # (Auto) 0.04 H ESR 57 H PT INR APTT PTT Ratio Sodium 125 L Potassium 4.8 Chloride 93 L Carbon Dioxide 23 Anion Gap 9 BUN 16 Creatinine 0.52 L Est Cr Clr Drug Dosing 117.5 Est GFR ( Amer) 117.0 Est GFR (Non-Af Amer) 101.0 BUN/Creatinine Ratio 30.8 H Glucose 117 H Lactate Calcium 9.3 Troponin I High Sens 8876.4 H* C-Reactive Protein 15.20 H Procalcitonin TSH SARS-CoV-2, RNA, NAAT 09/23/21 09/23/21 09/23/21 11:10 11:10 11:10 WBC RBC Hgb Hct MCV MCH MCHC RDW Std Deviation RDW Coeff of José Miguel Plt Count MPV Immature Gran % (Auto) Neut % (Auto) Lymph % (Auto) Dougherty % (Auto) Eos % (Auto) Baso % (Auto) Neut # (Auto) Lymph # (Auto) Dougherty # (Auto) Eos # (Auto) Baso # (Auto) Immature Gran # (Auto) ESR PT 11.3 INR 1.1 APTT 25.6 PTT Ratio 0.9 Sodium Potassium Chloride Carbon Dioxide Anion Gap BUN Creatinine Est Cr Clr Drug Dosing Est GFR ( Amer) Est GFR (Non-Af Amer) BUN/Creatinine Ratio Glucose Lactate 2.2 H* Calcium Troponin I High Sens C-Reactive Protein Procalcitonin 0.15 TSH SARS-CoV-2, RNA, NAAT 09/23/21 09/23/21 09/23/21 11:10 13:27 13:32 WBC RBC Hgb Hct MCV MCH MCHC RDW Std Deviation RDW Coeff of José Miguel Plt Count MPV Immature Gran % (Auto) Neut % (Auto) Lymph % (Auto) Dougherty % (Auto) Eos % (Auto) Baso % (Auto) Neut # (Auto) Lymph # (Auto) Dougherty # (Auto) Eos # (Auto) Baso # (Auto) Immature Gran # (Auto) ESR PT INR APTT PTT Ratio Sodium Potassium Chloride Carbon Dioxide Anion Gap BUN Creatinine Est Cr Clr Drug Dosing Est GFR ( Amer) Est GFR (Non-Af Amer) BUN/Creatinine Ratio Glucose Lactate 2.0 Calcium Troponin I High Sens C-Reactive Protein Procalcitonin TSH Pending SARS-CoV-2, RNA, NAAT NEGATIVE 09/23/21 16:22 WBC RBC Hgb Hct MCV MCH MCHC RDW Std Deviation RDW Coeff of José Miguel Plt Count MPV Immature Gran % (Auto) Neut % (Auto) Lymph % (Auto) Dougherty % (Auto) Eos % (Auto) Baso % (Auto) Neut # (Auto) Lymph # (Auto) Dougherty # (Auto) Eos # (Auto) Baso # (Auto) Immature Gran # (Auto) ESR PT INR APTT PTT Ratio Sodium Potassium Chloride Carbon Dioxide Anion Gap BUN Creatinine Est Cr Clr Drug Dosing Est GFR ( Amer) Est GFR (Non-Af Amer) BUN/Creatinine Ratio Glucose Lactate Calcium Troponin I High Sens Pending C-Reactive Protein Procalcitonin TSH SARS-CoV-2, RNA, NAAT Diagnostic Findings Lumbar Spine MRI 09/23/21 10:03 MRI OF THE LUMBAR SPINE WITH AND WITHOUT CONTRAST CLINICAL HISTORY: Severe back pain. Evaluate for cord compression. COMPARISON STUDY: Lumbar spine MRI December 08, 2013. TECHNIQUE: Utilizing a 1.5 Cinda magnet and dedicated coil, multiplanar, multiecho imaging of the lumbar spine was performed before and after uneventful IV administration of 6.5 mL of Gadavist. FINDINGS: For purposes of numbering on this exam, the L5-S1 disc space is assigned to axial image 36 of 41. There is straightening of the normal lumbar lordosis. Vertebral body heights are maintained. There is no compression fracture. Evaluation is compromised by susceptibility artifact from surgical hardware. Bilateral pedicle screw fusion from T12 through L5 is noted with multilevel discectomy. No intracanalicular mass or fluid collection. Paravertebral soft tissues are grossly unremarkable. Conus terminates at approximately the upper L1 level. Left renal cyst is incidentally noted. L1-2: The central canal is patent. Neural foramen are also patent although partially obscured due to susceptibility artifact. L2-3: Central canal is patent. Neural foramen are grossly patent. L3-4: Central canal is patent. Neural foramen are grossly patent. L4-5: Central canal and left neural foramen are patent. Mild narrowing of the right neural foramen. L5-S1: Disc bulge is present. There is minimal central canal narrowing. Neural foramen are suboptimally assessed on this exam. Moderate left and mild right neural foraminal stenosis is suspected. IMPRESSION: 1. Extensive postoperative findings within the spine, as described above. Multilevel posterior decompression and discectomy with T12-L5 bilateral pedicle screw fusion. 2. No lumbar spine fracture. No significant central stenosis within the lumbar spine. 3. Neural foramen suboptimally assessed due to susceptibility artifact from goode rdware. Moderate multilevel narrowing, as described above. ACT 112: Negative or not required by law. Electronically signed by: Panchito Feldman M.D. 09/23/2021 1:23 PM Thoracic Spine MRI 09/23/21 10:03 MRI OF THE THORACIC SPINE WITH AND WITHOUT CONTRAST CLINICAL HISTORY: Severe back pain. Evaluate for cord compression. COMPARISON: Thoracic spine MRI May 17, 2010. TECHNIQUE: Utilizing a 1.5 Cinda magnet and dedicated coil, multiplanar, multiecho imaging of the thoracic spine was performed before and after the intravenous administration of 6.5 cc. FINDINGS: Exam is mildly compromised by motion artifact. No acute thoracic spine fracture is noted. There is no suspicious marrow replacement. Thoracic cord signal and caliber are normal. There is no intracanalicular mass or fluid collection. No abnormal enhancement within the thoracic canal is noted. Discogenic changes are most pronounced at the T3-T4 level. Paravertebral soft tissues are unremarkable. Moderate multilevel disc space narrowing is noted. There are multiple small disc protrusions. There is mild multilevel central canal stenosis within the thoracic spine. Mild multilevel neural foraminal stenosis is also present. Postoperative findings within the cervical spine are partially imaged. Thoracolumbar spine fusion is better depicted on the lumbar spine CT which will be reported separately. IMPRESSION: 1. Exam mildly compromised by motion artifact. No thoracic cord compression. Normal thoracic cord signal and caliber. 2. Multilevel degenerative disc disease and facet arthrosis within the thoracic spine. No severe stenosis. Mild multilevel central canal or neural foraminal stenosis. ACT 112: Negative or not required by law. Electronically signed by: Panchito Feldman M.D. 09/23/2021 1:11 PM Chest X-Ray 09/23/21 10:04 XR chest 1V portable CLINICAL HISTORY: Back and chest pain. COMPARISON STUDY: Chest radiograph October 17, 2020. FINDINGS: Lung volumes are normal. Lungs are clear. There is no pneumothorax or pleural effusion. Cardiac size is normal. Mediastinal contours are normal. There is no evidence for pulmonary edema. Postoperative findings within the spine are incidentally noted. IMPRESSION: No acute cardiopulmonary findings. ACT 112: Negative or not required by law. Electronically signed by: Panchito Feldman M.D. 09/23/2021 11:02 AM Medications Administered Home Medications clindamycin phosphate 1 % topical solution 1 applic topical DAILY #30 mL 03/21/21 [Rx Confirmed 06/25/21] cyclobenzaprine 5 mg tablet 5 mg PO TID PRN muscle spasm #20 tabs 06/13/21 [Rx Confirmed 06/25/21] albuterol sulfate 90 mcg/actuation aerosol inhaler 2 puff inhalation Q6H PRN shortness of breath or wheezing #18 grams 06/25/21 [Rx Confirmed 06/25/21] azithromycin 250 mg tablet See Rx Instructions PO .COMPLEX #6 tabs 06/25/21 [Rx Confirmed 06/25/21] compressor, for nebulizer #1 ea 06/25/21 [Rx Confirmed 06/25/21] fluticasone fur. 100 mcg-umeclid 62.5 mcg-vilant 25 mcg inhalat.powder (Trelegy Ellipta) 1 inh inhalation Q24H #60 ea 06/25/21 [Rx Confirmed 06/25/21] prednisone 20 mg tablet 40 mg PO DAILY 5 days #10 tabs 06/25/21 [Rx Confirmed 06/25/21] albuterol sulfate 1.25 mg/3 mL solution for nebulization 1.25 mg (3 mL) inhalation QID PRN shortness of breath or wheezing #90 mL 06/29/21 [Rx] duloxetine 30 mg capsule,delayed release 30 mg PO DAILY #30 caps 07/16/21 [Rx] duloxetine 60 mg capsule,delayed release 60 mg PO DAILY #30 caps 07/16/21 [Rx] Active Medications Acetaminophen (Acetaminophen 325 Mg Tab) 650 mg PO Q4H PRN PRN Reason: pain/fever Stop: 10/23/21 16:12 Albuterol (Albuterol Hfa 8 Gm Inhaler) 2 puffs INH Q6H PRN PRN Reason: shortness of breath or wheezing Stop: 10/23/21 16:26 Albuterol (Albuterol 0.083% Nebu Soln 3 Ml Vial) 2.5 mg INH QID PRN PRN Reason: shortness of breath or wheezing Stop: 10/23/21 16:34 Aspirin (Aspirin 81 Mg Ectab) 81 mg PO QAM [facility] Stop: 10/24/21 08:59 Clopidogrel Bisulfate (Clopidogrel Bisulfate 75 Mg Tab) 75 mg PO QAM [facility] Stop: 10/24/21 08:59 Cyclobenzaprine HCl (Cyclobenzaprine Hcl 5 Mg Tab) 5 mg PO TID PRN PRN Reason: muscle spasm Stop: 10/23/21 16:26 Duloxetine HCl (Duloxetine Hcl 30 Mg Cap) 90 mg PO DAILY [facility] Stop: 10/24/21 08:59 Fluticasone Furoate (Fluticasone Furoate 100mcg 14 Puffs/Inhaler) 1 puffs INH DAILY [facility]; Protocol Stop: 10/24/21 08:59 Famotidine 20 mg/ Syringe 5 mls @ 2.5 mls/min IV Q12H [facility] Stop: 10/23/21 16:59 Lidocaine (Lidocaine 5% 1 Patch) 1 patch TD QAM [facility] Stop: 10/23/21 16:14 Miscellaneous (Icu Protocol For Hyperglycemia) 1 each N/A PRN PRN; Protocol PRN Reason: Hyperglycemia Protocol Stop: 09/25/21 16:12 Miscellaneous (Remove Lidoderm Patch) 1 each N/A DAILY@2100 [facility] Stop: 10/23/21 20:59 Nitroglycerin (Nitroglycerin Sl 0.4 Mg/Tab Tab) 0.4 mg SL Q5M PRN PRN Reason: Chest Pain X 3 DOSES Stop: 10/23/21 15:52 Prednisone (Prednisone 20 Mg Tab) 20 mg PO ONE ONE Stop: 09/24/21 09:01 Prednisone (Prednisone 10 Mg Tablet) 10 mg PO ONE ONE Stop: 09/25/21 09:01 Umeclidinium/Vilanterol (Umeclidinium/Vilanterol 62.5/25mcg 7 Puffs/Inhaler) 1 puffs INH DAILY [facility]; Protocol Stop: 10/24/21 08:59 Discontinued Medications Aspirin (Aspirin 81 Mg Chew) 324 mg PO NOW STA Stop: 09/23/21 13:27 Last Admin: 09/23/21 13:29 Dose: 324 mg Documented By: RON Atropine Sulfate (Atropine Sulfate 0.1 Mg/Ml 10ml Syr) Confirm Administered Dose 1 mg IV .STK-MED ONE Stop: 09/23/21 14:07 Last Admin: 09/23/21 15:36 Dose: Not Given Documented By: CASEY Cefazolin Sodium (Cefazolin 330 Mg/Ml 1 Gm Vial) Confirm Administered Dose 990 mg .ROUTE .STK-MED ONE Stop: 09/23/21 14:23 Last Admin: 09/23/21 15:37 Dose: 990 mg Documented By: MICHAEL Clopidogrel Bisulfate (Clopidogrel Bisulfate 300 Mg Tab) Confirm Administered Dose 600 mg .ROUTE .STK-MED ONE Stop: 09/23/21 13:40 Last Admin: 09/23/21 15:35 Dose: 600 mg Documented By: MICHAEL Diphenhydramine HCl (Diphenhydramine 50 Mg/Ml Vial) Confirm Administered Dose 50 mg .ROUTE .STK-MED ONE Stop: 09/23/21 14:43 Last Admin: 09/23/21 15:37 Dose: 50 mg Documented By: MICHAEL Eptifibatide (Eptifibatide 0.75 Mg/Ml 75mg Vial ([employer] [address] [employer] Use Only)) Confirm Administered Dose 75 mg .ROUTE .STK-MED ONE Stop: 09/23/21 14:08 Last Admin: 09/23/21 15:36 Dose: 75 mg Documented By: CASEY Eptifibatide (Eptifibatide 2 Mg/Ml 10 Ml Vial ([employer] [employer] Use Only)) Confirm Administered Dose 20 mg IV .ST-MED ONE Stop: 09/23/21 14:08 Last Admin: 09/23/21 15:36 Dose: 6.2 ml Documented By: CASEY Eptifibatide (Eptifibatide 2 Mg/Ml 10 Ml Vial ([employer] [employer] Use Only)) Confirm Administered Dose 20 mg IV .ST-MED ONE Stop: 09/23/21 14:09 Last Admin: 09/23/21 15:36 Dose: 6.2 ml Documented By: CASEY Fentanyl Citrate (Fentanyl Citrate 100 Mcg/2 Ml Vial) Confirm Administered Dose 100 mcg .ROUTE .[facility]-MED ONE Stop: 09/23/21 13:35 Last Admin: 09/23/21 15:34 Dose: 100 mcg Documented By: MICHAEL Fentanyl Citrate (Fentanyl Citrate 100 Mcg/2 Ml Vial) Confirm Administered Dose 100 mcg .ROUTE .[facility]-MED ONE Stop: 09/23/21 14:13 Last Admin: 09/23/21 15:36 Dose: Not Given Documented By: CASEY Gadobutrol (Gadobutrol 65ml Vial) 6.5 ml IV ONCE ONE Stop: 09/23/21 12:41 Last Admin: 09/23/21 12:40 Dose: 6.5 ml Documented By: JOSE JUAN Heparin Sodium (Porcine) (Heparin (Porcine) 1000 Unit/Ml 10 Ml ([employer] [employer] Use Only)) Confirm Administered Dose 10,000 units .ROUTE .ST-MED ONE Stop: 09/23/21 13:35 Last Admin: 09/23/21 15:35 Dose: Not Given Documented By: CASEY Heparin Sodium (Porcine) (Heparin Sod (Porcine) 1000 Unit/Ml) Confirm Administered Dose 1,000 units .ROUTE .STK-MED ONE Stop: 09/23/21 13:40 Last Admin: 09/23/21 15:36 Dose: 1,000 units Documented By: [id number] Co-signed By: MICHAEL Heparin Sodium (Porcine) (Heparin Sod (Porcine) 1000 Unit/Ml) 4,000 units IV ONCE ONE Stop: 09/23/21 13:43 Last Admin: 09/23/21 13:43 Dose: 4,000 units Documented By: RON Co-signed By: MICHAEL Heparin Sodium/Sodium Chloride (Heparin In Nss Infusion 1000 Unit/500 Ml (2 U/Ml) Bag) Confirm Administered Dose 3,000 units IV .STK-MED ONE Stop: 09/23/21 13:35 Last Admin: 09/23/21 15:35 Dose: 3,000 units Documented By: [id number] Sodium Chloride (Nss 1000ml) 1,000 mls @ 125 mls/hr IV .Q8H [facility] Stop: 10/23/21 10:14 Last Admin: 09/23/21 11:26 Dose: 125 mls/hr Documented By: VANDANA Midazolam HCl (Midazolam Hcl 1 Mg/Ml 2ml Vial) Confirm Administered Dose 2 mg .ROUTE .STK-MED ONE Stop: 09/23/21 13:35 Last Admin: 09/23/21 15:35 Dose: 2 mg Documented By: MICHAEL Midazolam HCl (Midazolam Hcl 1 Mg/Ml 2ml Vial) Confirm Administered Dose 2 mg .ROUTE .STK-MED ONE Stop: 09/23/21 14:14 Last Admin: 09/23/21 15:37 Dose: Not Given Documented By: CASEY Morphine Sulfate (Morphine Sulfate 4 Mg/Ml 1 Ml Carp\\Vial) 4 mg IV NOW STA Stop: 09/23/21 10:07 Last Admin: 09/23/21 11:26 Dose: 4 mg Documented By: VANDANA Nicardipine HCl (Nicardipine Hcl Inj 2.5 Mg/Ml 10 Ml Amp) Confirm Administered Dose 25 mg .ROUTE .STK-MED ONE Stop: 09/23/21 13:35 Last Admin: 09/23/21 15:35 Dose: 25 mg Documented By: [id number] Nitroglycerin/Dextrose (Nitroglycerin/D5w 100mcg/Ml 20ml Syr) Confirm Administered Dose 2,000 mcg .ROUTE .STK-MED ONE Stop: 09/23/21 13:35 Last Admin: 09/23/21 15:35 Dose: 2,000 mcg Documented By: [id number] ECG Additional Comments: Normal sinus rhythm Inferior infarct (cited on or before 23-SEP-2021) Possible Anterolateral infarct (cited on or before 23-SEP-2021) ACUTE ND / STEMI Consider right ventricular involvement in acute inferior infarct Abnormal ECG When compared with ECG of 23-SEP-2021 13:18, (unconfirmed) Previous ECG has undetermined rhythm, needs review Serial changes of evolving Anterior infarct Present Serial changes of evolving Anterolateral infarct Present Code Status & VTE Plan Code Status CODE: FULL VTE: SCDS, VTE Prophylaxis Plan VTE Prophylaxis will be ordered: Yes Supervising Physician Co-Signing Physician Notes I supervised SYLVIE Peña on this admission. I interviewed and examined the patient independently of him. The plan is as written in his note except for any following changes/exceptions: None 66yo F w/ hx of back pain who presents with with back pain. The pain radiates around the left side and into the chest. It has been going on for almost 2 weeks. She was treated as a back pain patient, but then troponin came back at 8,000, and she was activated as a heart alert after her EKG showed ST elevations in the inferior leads. 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 Seen after her procedure, she reports her pain is unchanged, but she is feeling "less stressed." It is unclear to me whether her back pain represents cardiac pain or actual MSK back pain as she has a history of chronic back pain and multiple back surgeries. Will watch troponins and EKGs closely and monitor symptoms. PG Care Time/CCT Total # of Minutes Spent Total Time Spent with Patient: Total time spent is greater than 50% in coordination of care (as documented) at patient's floor/unit and/or counseling patient: Coding Level of Care Code 08526 Initial Inpt Care Lvl [address] elevation (STEMI) myocardial infarction I21.3 Involved coronary artery: unspecified coronary artery Back pain M54.9; G89.29 Back pain laterality: unspecified Back pain location: back pain in unspecified location Chronicity: chronic COPD (chronic obstructive pulmonary disease) J44.9 Depression F32.9 (1) Back pain Back pain laterality: unspecified Back pain location: back pain in unspecified location Chronicity: chronic Qualified Code(s): M54.9 - Dorsalgia, unspecified; G89.29 - Other chronic pain (2) ST elevation (STEMI) myocardial infarction Involved coronary artery: unspecified coronary artery Qualified Code(s): I21.3 - ST elevation (STEMI) myocardial infarction of unspecified site
[2021-09-23] MEDS ORDERED: TICAGRELOR 90 MG HOME PACK PO STA (15:53)
[2021-09-23] MEDS ORDERED: NITROGLYCERIN SL 0.4 MG/TAB TAB SL PRN (15:53)
--- NOTE | 2021-09-23 16:04 | Pre Anesthesia Assessment ---
Date of Service September 23, 2021 Pre Sedation Assessment Vital Signs Temp Pulse Pulse Resp BP BP Pulse Ox 09/23/21 13:47 09/23/21 13:45 131/84 09/23/21 13:44 83 16 09/23/21 13:40 67 28 H 09/23/21 13:34 101/59 L 09/23/21 13:34 71 18 09/23/21 13:30 61 21 09/23/21 13:24 71 16 09/23/21 13:19 82 17 09/23/21 13:18 82 14 09/23/21 13:35 09/23/21 13:00 86 20 121/96 96 09/23/21 11:18 20 97 09/23/21 10:07 73 17 108/75 96 09/23/21 10:02 36.8 C 70 18 108/75 96 09/23/21 10:01 37.1 C 88 20 177/95 H 93 O2 Del Method 09/23/21 13:47 Room Air 09/23/21 13:45 Room Air 09/23/21 13:44 Room Air 09/23/21 13:40 Room Air 09/23/21 13:34 Room Air 09/23/21 13:34 09/23/21 13:30 09/23/21 13:24 09/23/21 13:19 09/23/21 13:18 09/23/21 13:35 Room Air 09/23/21 13:00 Room Air 09/23/21 11:18 Room Air 09/23/21 10:07 Room Air 09/23/21 10:02 Room Air 09/23/21 10:01 Room Air Cardiovascular RRR, no murmur, no edema + irregularly irregular Respiratory + prolonged expiratory phase Pre-Sedation Airway Assessment Smoking Status: Current every day smoker Hx Sleep Apnea: No Hx Difficult Intubation: No Short, Thick Neck: No Thyromental Distance: > or= 3.5 Finger Breadths Mallampati Class: III ASA: ASA3 Procedure Planning Contraindications for Sedation: none Current Medications Reviewed: Yes Notes The planned sedation has been discussed with the patient. Informed Consent was obtained. I have identified the patient, determined the appropriateness of sedation and have assessed the patient immediately prior to the procedure. All medicine(s) and interventions are by my order.
--- NOTE | 2021-09-23 16:06 | Post Anesthesia Assessment ---
Date of Service September 23, 2021 Post Sedation Assessment Vital Signs Temp Pulse Pulse Resp BP BP Pulse Ox 09/23/21 13:47 09/23/21 13:45 131/84 09/23/21 13:44 83 16 09/23/21 13:40 67 28 H 09/23/21 13:34 101/59 L 09/23/21 13:34 71 18 09/23/21 13:30 61 21 09/23/21 13:24 71 16 09/23/21 13:19 82 17 09/23/21 13:18 82 14 09/23/21 13:35 09/23/21 13:00 86 20 121/96 96 09/23/21 11:18 20 97 09/23/21 10:07 73 17 108/75 96 09/23/21 10:02 36.8 C 70 18 108/75 96 09/23/21 10:01 37.1 C 88 20 177/95 H 93 O2 Del Method 09/23/21 13:47 Room Air 09/23/21 13:45 Room Air 09/23/21 13:44 Room Air 09/23/21 13:40 Room Air 09/23/21 13:34 Room Air 09/23/21 13:34 09/23/21 13:30 09/23/21 13:24 09/23/21 13:19 09/23/21 13:18 09/23/21 13:35 Room Air 09/23/21 13:00 Room Air 09/23/21 11:18 Room Air 09/23/21 10:07 Room Air 09/23/21 10:02 Room Air 09/23/21 10:01 Room Air Recovery Score Activity: Moves 4 extremities Respiration: Deep Breath/Cough Circulation: +/-20% PreAnes Value Consciousness: Fully Awake Oxygen Saturation: > 92% On Room Air Discharge Sedation Level of Care: Phase I Post Sedation Plan On clinical assessment, the patient appears to have tolerated the sedation without complications. Patient is recovering as anticipated. Patient will continue to be monitored by nursing and may be discharged when sedation discharge criteria are met per below protocol. Upon Completions of procedure up to 15 minutes continue every 5 minute vital signs and the P.A.R. score; then discharge to a Phase I or Fast Track to Phase II per the following guidelines: * Discharge Patient to appropriate Phase II area if PAR is 8 or greater or return to pre- procedure baseline. The post - procedure orders will be as directed. * If PAR score is less than 8 or not return to pre-procedure baseline then patient will follow Phase I monitoring till PAR is reached for Phase II. The Phase I may be done in procedure room or may call to secure a Phase I area. * If naloxone or flumazenil are used for reversal, hold in Phase I for continued monitoring from when last reversal dose was given for a minimum of 60 minutes or longer pending the nurse and/or physician discretion of patient condition before discharge to Phase II. Please call the Sedation Physician to re-evaluate and complete post-note for discharge to Phase II area. Do NOT discharge from procedure sedation or Phase 1 until post- sedation evaluation note is complete by procedure /sedation MD Sedation Discharge Instructions to be given to the patient at discharge to home. [facility] Procedure Codes (Charges) Indication for Procedure Indication for procedure: Left Heart Cath
--- NOTE | 2021-09-23 16:08 | Cardiac Catheterization ---
ACC Data: Survival Specialist Cardiac Status Clinical evaluation leading to the procedure CAD Presenation: STEMI Anginal Classification: CCS IV Heart Failure: NYHA Class: CCS II Cardiogenic Shock within 24 Hours: No Cardiac Arrest within 24 Hours: No Imaging Studies Past 6 Months: No Stress Studies Past 6 Months: No Standard Exercise Test: No Stress Echocardiogram: No Stress Testing w/SPECT MPI: No Cardiac CTA: No STEMI OR Non-STEMI Symptom Onset Date: 09/23/21 Symptom Onset Time: 10:00 Thrombolytics: No Coronary Anatomy Dominant: Right LAD (% Stenosis): Mid (50) Circumflex (% Stenosis): Normal RCA (% Stenosis): Proximal (100) Left Ventricular Angiography EF (%): 40 Wall Motion: Inferior (Akinetic) Mitral Regurgitation: 1+ Diagnostic Physicians Name: Ochoa Stringer MD Status: Emergency Closure Device Percutaneous Entry Location: Femoral Closure Device: Angio-Seal and Radial Band Recommendations: Medical Therapy and/or Counseling and Management Recommendatons (Smoking cessation is a must. 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 Lesion Segment Name: Proximal RCA Culprit Artery: Yes Stenosis Prior to Rx (%): 100 Chronic Total Occlusion: Yes IVUS: Yes Pre-Procedure PATRICIA Flow: 0 Previously Treated Lesion: No Lesion Complexity: High/C Lesion Length (mm): 50 Thrombus Present: Yes Guidewire Across Lesion: Yes Intraprocedure Events Significant Disection: No Perforation: No Cardiac Cath Procedure Full Procedure Date September 23, 2021 Pre-Procedure Diagnosis Pre-Procedure Diagnosis: STEMI AUC Score AUC Score: 7 Post-Procedure Diagnosis Post-Procedure Diagnosis: Severe CAD and Successful PCI Procedure(s) Performed Procedure(s) Performed: Left Heart Cath, Drug Eluting Stent, Ultrasound Guided Vascular Access and IVUS Welder Setter Electron Beam Machine Ochoa Stringer MD Estimated Blood Loss Estimated Blood Loss: None Medication(s) Medication(s): Integrilin Summary of Findings RCA 100 % occlusion LAD 50% in the midsegment LCX: minimal irregularities Hemodynamics Rest Ao:: 105/68/84 Final Ao: 127/77 LV: 106/18 Recommendations Recommendations: Medical Therapy and/or Counseling and Management Recommendatons (Smoking cessation is a must. 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 DAP 65548 Contrast (mls) 140 cc Procedural Complication(s) None Disposition ICU I attest to the content of the Intraoperative Record and any orders documented therein. Any exceptions are noted below. [facility] Card Cath Procedure Codes Cardiac Catheterization Procedure 1: Cardiovascular Cath Procedures: 12249 Left Heart Cath (+/-LV) Therapeutic Services & Ancillary Proc Procedure 1: Cardiovascular Tx and Anc Procedures: 03969 IV Ultrasound (Coronary or Graft) Moderate Sedation Procedure 1: Sedation/Anesthesia: 42121 Mod Sedation by the same physician; Ea [id number] Minutes (7) Stenting Procedure 1: Cardiovascular Stent Procedures: 99326 Perc transluminal revascularization of acute sub/total occl, aMI PG Care Time/CCT Total # of Minutes Spent Total Time Spent: 3 (hours) Total Time Spent with Patient: Total time spent is greater than 50% in coordination of care (as documented) at patient's floor/unit and/or counseling patient: Critical Care Time: Yes Total Critical Care Time: 3 (hours)
[2021-09-23] MEDS ORDERED: ACETAMINOPHEN 325 MG TAB PO PRN (16:13)
[2021-09-23] MEDS ORDERED: ICU PROTOCOL FOR HYPERGLYCEMIA PRN (16:13)
[2021-09-23] MEDS ORDERED: ALBUTEROL HFA 8 GM INHALER INH PRN (16:27)
[2021-09-23] MEDS ORDERED: CYCLOBENZAPRINE HCL 5 MG TAB PO PRN (16:27)
[2021-09-23] MEDS ORDERED: ALBUTEROL 0.083% NEBU SOLN 3 ML VIAL INH PRN (16:35)
[2021-09-23] MEDS: FAMOTIDINE 20 MG in SYRINGE 3 ML IV SCH (17:05)
[2021-09-23] MEDS: LIDOCAINE 5% 1 PATCH TD SCH (17:05)
[2021-09-23] MEDS: LACTATED RINGER'S 1,000 ML IV SCH (17:40)
--- NOTE | 2021-09-23 20:27 | Critical Care Consultation ---
Date of Consultation September 23, 2021 Assessment & Plan (1) ST elevation (STEMI) myocardial infarction: Impression: 66-year-old female presents to the ICU following inferior STEMI, now s/p CARLIE x3 to the RCA for 100% occlusion. Neuro - [facility] ICU: Negative Anxiety and depressioncontinue duloxetine Cardiac - STEMIpatient underwent left heart cath and found to have 100% occlusion of RCA and 50% on culprit LAD and mid segment -Status post successful PCI with CARLIE x3 to the RCA -Trend troponins for peak -ASA, Plavix, BB, ACEI, statin -Follow-up echo -Follow-up A1c, lipid panel -Continuous monitor on telemetry Respiratory - COPDcurrently maintaining oxygen saturation on room air without respiratory di stress, no issues at this time. Continue Trelegy, prednisone, nebs as needed -Continuous monitoring on pulse ox GI - Heart healthy diet RENAL/LYTES - Creatinine within normal limits. Maximize electrolytes and replete as indicated - Strict I's and O's ENDO - No history of diabetes or thyroid disease. Follow-up A1c. ICU hyperglycemic protocol HEME - H&H stable, monitor routine CBC ID - No indication for infectious process at this time LINES/IV ACCESS - Peripheral IVs DVT PROPHYLAXIS - SCDs I have personally spent [] minutes of critical care time in the direct management of this patient. This is a life/limb threatening event. This includes time spent evaluating patient, direct bedside care, chart review, placing orders, interpretation of diagnostic studies, discussion with consultants, patient, and family members, as well as other required patient management activities. This time is exclusive of all separately billable procedures, and teaching time and separate from and in addition to any other critical care service time. Thank you for allowing us to participate in the care of this patient. Please refer to my attending physician's documentation for any further recommendations. 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 Patient states this has been ongoing for the past 2 weeks but has gotten increasingly worse throughout the day. She went for MRI of her back. An EKG showed ST elevation in inferior leads and heart alert was initiated. Patient was taken to the [facility] where she was found to have 100% occlusion of the RCA and underwent successful PCI with CARLIE x3. Patient now transferred to ICU for further management at this time. On arrival to the ICU the patient is alert and oriented and appears comfortable at rest. She complains of a mild headache. She denies any chest pain or palpitations, shortness of breath, dizziness or syncope. She denies recent illness, fevers, congestion, nausea vomiting or diarrhea, abdominal pain, changes in gait, swelling in hands or feet. Allergies Allergy/AdvReac Type Severity Reaction Status Date / Time buprenorphine [From Suboxone] Allergy Mild itching Verified 06/25/21 16:00 naloxone [From Suboxone] Allergy Mild itching Verified 06/25/21 16:00 Home Medications Medication Instructions Recorded Confirmed Type clindamycin phosphate 1 % topical 1 applic topical DAILY #30 mL 03/21/21 06/25/21 Rx solution cyclobenzaprine 5 mg tablet 5 mg PO TID PRN muscle spasm #20 06/13/21 06/25/21 Rx tabs albuterol sulfate 90 mcg/actuation 2 puff inhalation Q6H PRN 06/25/21 06/25/21 Rx aerosol inhaler shortness of breath or wheezing #18 grams azithromycin 250 mg tablet See Rx Instructions PO .COMPLEX #6 06/25/21 06/25/21 Rx tabs compressor, for nebulizer #1 ea 06/25/21 06/25/21 Rx fluticasone fur. 100 mcg-umeclid 1 inh inhalation Q24H #60 ea 06/25/21 06/25/21 Rx 62.5 mcg-vilant 25 mcg inhalat.powder (Trelegy Ellipta) prednisone 20 mg tablet 40 mg PO DAILY 5 days #10 tabs 06/25/21 06/25/21 Rx albuterol sulfate 1.25 mg/3 mL 1.25 mg (3 mL) inhalation QID PRN 06/29/21 Rx solution for nebulization shortness of breath or wheezing #90 mL duloxetine 30 mg capsule,delayed 30 mg PO DAILY #30 caps 07/16/21 Rx release duloxetine 60 mg capsule,delayed 60 mg PO DAILY #30 caps 07/16/21 Rx release Patient History Medical History Anxiety CAD (coronary artery disease) COPD (chronic obstructive pulmonary disease) Depression 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 Left anterior C7 fusion screw protrudes into the prevertebral soft tissue 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) Lumbar pseudoarthrosis Lumbar spondylosis Smoker Surgical History History of fusion of cervical spine History of lumbar surgery Family History Father Heart disease Myocardial infarction Denies family history of Ovarian cancer Prostate cancer Lung cancer Colorectal cancer Social History Smoking Status: Current some day smoker Tobacco Type: Cigarettes Age Quit Using Tobacco: 65; packs per day: 0.5; Years Smoked: 40; Cigarettes Per Day: half a pack; Second Hand Exposure: No; Hx Alcohol Use: No Hx Substance Use: No Preferred Language: Dutch Communication Ability: Effective Visual Impairment: No Limitations Machine Bander And Cellophaner Required: No Beliefs That Will Affect Care: None marital status: Single Current Living Situation: Alone current occupational status: disabled Feels Safe at Home: Yes Childhood Exposure to Second-Hand Smoke: Yes caffeine: Yes (coffee) during the past year weight has: remained stable Dental Care, Regularly: Yes Physical Activity Frequency: Daily Seatbelt Use: always Sunscreen Use: Yes Assistive Devices: Denture - Upper, Denture - Lower and Glasses Review of Systems Review of Systems: All systems reviewed & are unremarkable except as noted in HPI & below Physical Exam Constitutional: WD/WN, vitals as above cooperative and comfortable Eyes: PERRL, conjunctivae normal, anicteric sclerae ENMT: external ear and nose normal, oropharynx normal Neck: trachea midline, no thyromegaly Respiratory: normal respiratory effort, lungs clear to auscultation Cardiovascular: RRR, no murmur, no edema Heart Sounds: normal S1 and normal S2; no murmur Vessels: no JVD Extremities: normal capillary refill Gastrointestinal (Abdomen): normal bowel sounds, soft, nontender, no hepatosplenomegaly Musculoskeletal: no cyanosis or clubbing, extremities motor strength 5/5 Skin: no rashes, warm and dry Neurologic: PERRL, EOMI, accommodation nl, no face palsy, no dysarthria Psychiatric: A+Ox3, euthymic affect Results & Data Results & Data ([facility]) Vital Signs (Past 12 Hours) Vital Signs Temp Pulse Pulse Resp BP BP Pulse Ox 09/23/21 17:50 66 22 96 09/23/21 17:45 69 24 96 09/23/21 17:45 111/64 09/23/21 17:40 70 22 95 09/23/21 17:31 71 22 96 09/23/21 17:31 102/74 09/23/21 17:30 72 27 H 95 09/23/21 17:20 72 14 97 09/23/21 17:15 71 20 96 09/23/21 17:15 107/63 09/23/21 17:10 78 32 H 95 09/23/21 17:00 75 17 09/23/21 16:50 66 27 H 97 09/23/21 16:40 66 24 96 09/23/21 16:30 68 18 97 09/23/21 16:20 63 19 98 09/23/21 16:15 66 25 H 97 09/23/21 16:15 104/71 09/23/21 16:10 61 22 97 09/23/21 16:06 36.8 C 107/66 09/23/21 16:06 60 15 97 09/23/21 16:00 63 24 99 09/23/21 15:54 37 C 09/23/21 16:29 09/23/21 16:29 37 C 65 20 104/71 97 09/23/21 13:47 09/23/21 13:45 131/84 09/23/21 13:44 83 16 09/23/21 13:40 67 28 H 09/23/21 13:34 101/59 L 09/23/21 13:34 71 18 09/23/21 13:30 61 21 09/23/21 13:24 71 16 09/23/21 13:19 82 17 09/23/21 13:18 82 14 09/23/21 13:35 09/23/21 13:00 86 20 121/96 96 09/23/21 11:18 20 97 09/23/21 10:07 73 17 108/75 96 09/23/21 10:02 36.8 C 70 18 108/75 96 09/23/21 10:01 37.1 C 88 20 177/95 H 93 O2 Del Method 09/23/21 17:50 09/23/21 17:45 09/23/21 17:45 09/23/21 17:40 09/23/21 17:31 09/23/21 17:31 09/23/21 17:30 09/23/21 17:20 09/23/21 17:15 09/23/21 17:15 09/23/21 17:10 09/23/21 17:00 09/23/21 16:50 09/23/21 16:40 09/23/21 16:30 09/23/21 16:20 09/23/21 16:15 09/23/21 16:15 09/23/21 16:10 09/23/21 16:06 09/23/21 16:06 Room Air 09/23/21 16:00 09/23/21 15:54 09/23/21 16:29 Room Air 09/23/21 16:29 Room Air 09/23/21 13:47 Room Air 09/23/21 13:45 Room Air 09/23/21 13:44 Room Air 09/23/21 13:40 Room Air 09/23/21 13:34 Room Air 09/23/21 13:34 09/23/21 13:30 09/23/21 13:24 09/23/21 13:19 09/23/21 13:18 09/23/21 13:35 Room Air 09/23/21 13:00 Room Air 09/23/21 11:18 Room Air 09/23/21 10:07 Room Air 09/23/21 10:02 Room Air 09/23/21 10:01 Room Air Coding Level of Care Code 85177 Inpt Consult Level [address] elevation (STEMI) myocardial infarction I21.3 Involved coronary artery: unspecified coronary artery Smoker F17.200 Acute hyponatremia E87.1 Back pain M54.9; G89.29 Back pain laterality: unspecified Back pain location: back pain in unspecified location Chronicity: chronic Failed cervical fusion M96.0 Failed back syndrome of lumbar spine M96.1 Lumbar pseudoarthrosis S32.009K Lumbar spondylosis M47.816 COPD (chronic obstructive pulmonary disease) J44.9 History of fusion of cervical spine Z98.1 (1) ST elevation (STEMI) myocardial infarction Involved coronary artery: unspecified coronary artery Qualified Code(s): I2 1.3 - ST elevation (STEMI) myocardial infarction of unspecified site (2) Back pain Back pain laterality: unspecified Back pain location: back pain in unspecified location Chronicity: chronic Qualified Code(s): M54.9 - Dorsalgia, unspecified; G89.29 - Other chronic pain
[2021-09-23] MEDS: ATORVASTATIN 40 MG TAB PO SCH (20:48)
[2021-09-23] MEDS: MoRPHine SULFATE 2 MG/ML CARP IV PRN (21:09)
[2021-09-23 21:24] LABS: BUN Creatinine Ratio 31.4 (10-20); Creatinine Clr Calc Pharmacy 120.5 ml/min; Est GFR (African American) 117.8 ml/min; Est GFR (Non-African American) 101.6 ml/min; Potassium 4.4 mmol/L (3.5-5.1)
[2021-09-24] MEDS: MoRPHine SULFATE 2 MG/ML CARP IV PRN ×3 (01:21→19:30)
[2021-09-24] MEDS: LACTATED RINGER'S 1,000 ML IV SCH (04:39)
[2021-09-24] MEDS: FAMOTIDINE 20 MG in SYRINGE 3 ML IV SCH (04:44)
[2021-09-24 04:59] LABS: Basophils # (auto) 0.07 K/uL (0-0.2); Basophils % (auto) 0.7 %; Eosinophils # (auto) 0.07 K/uL (0-0.50); Eosinophils % (auto) 0.7 %; Hematocrit (blood only) 36.5 % (34.1-44.9); Hemoglobin 12.1 g/dl (12.0-16.0); Immature Granulocytes # (auto) 0.03 K/uL (0.00-0.02); Immature Granulocytes % (auto) 0.3 %; Lymphocytes # (auto) 2.64 K/uL (1.2-3.4); Lymphocytes % (auto) 26.2 %; Mean Corpuscular Hemoglobin 30.3 pg (25.0-34.0); Mean Corpuscular Hgb Conc 33.2 g/dL (32.0-36.0); Mean Corpuscular Volume 91.3 fL (80.0-100.0); Mean Platelet Volume 10.5 fL (9.4-12.3); Monocytes # (auto) 0.99 K/uL (0.24-0.82); Monocytes % (auto) 9.8 %; Neutrophils # (auto) 6.29 K/uL (1.4-6.5); Neutrophils % (auto) 62.3 %; Platelet Count 222 K/uL (130-400); RDW Coefficient of Variation 13.2 % (11.5-14.5); RDW Standard Deviation 44.5 fL (36.4-46.3); White Blood Count 10.09 K/ul (4.8-10.8)
[2021-09-24 05:29] LABS: BUN Creatinine Ratio 28.9 (10-20); Calcium 8.2 mg/dl (8.5-10.1); Chol HDL Ratio 3.3 (0-5); Creatinine Clr Calc Pharmacy 136.6 ml/min; Est GFR (African American) 122.7 ml/min; Est GFR (Non-African American) 105.9 ml/min; Magnesium 1.7 mg/dl (1.7-2.4); Potassium 3.9 mmol/L (3.5-5.1)
[2021-09-24 05:30] LABS: Troponin I High Sensitivity 12564.4 pg/ml (0-14)
[2021-09-24 07:01] LABS: Estimated Average Glucose 128 mg/dl; Hemoglobin A1C 6.1 % (4.5-5.6)
--- NOTE | 2021-09-24 07:32 | Critical Care Progress Note ---
Date of Service September 24, 2021 Assessment & Plan (1) ST elevation (STEMI) myocardial infarction: (2) Acute hyponatremia: (3) Smoker: (4) Back pain: (5) COPD (chronic obstructive pulmonary disease): (6) History of fusion of cervical spine: (7) Failed back syndrome of lumbar spine: Plan Impression: 66-year-old female presents to the ICU following inferior STEMI, now s/p CARLIE x3 to the RCA for 100% occlusion. Neuro: [facility] ICU - Negative Anxiety and depression continue duloxetine Cardiac: STEMIpatient underwent left heart cath and found to have 100% occlusion of RCA and 50% on culprit LAD and mid segment -Status post successful PCI with CARLIE x3 to the RCA -Trend troponins for peak -ASA, Plavix, Metoprolol Tartrate 25mg BID, Atorvastatin 40mg. -Continuous monitor on telemetry Respiratory: COPD currently maintaining oxygen saturation on room air without respiratory distress, no issues at this time. Continue Trelegy, prednisone, nebs as needed -Continuous monitoring on pulse ox GI: - Heart healthy diet RENAL/LYTES: Creatinine within normal limits. Maximize electrolytes and replete as indicated : Strict I's and O's ENDO: No history of diabetes or thyroid disease. A1c 6.1 - prediabetes. ICU hyperglycemic protocol HEME: H&H stable, monitor routine CBC ID: No indication for infectious process at this time LINES/IV ACCESS: Peripheral IVs DVT PROPHYLAXIS: SCDs Dispo: Okay for downgrade from ICU. Admission and Anticipated Discharge Date Admission Date: September 23, 2021 Supervising Physician Co-Signing Physician Notes Dr. Fontaine was resident physician during care of patient. I separately evaluated patient for zavala portions of the history and the exam. I was present during the critical portion of medical decision making, and I discussed the case with the resident. I generally agree with the findings and plan. Mild hyponatremia improving. Repeat troponins pending, hemodynamically stable. Stable for downgrade out of ICU. Subjective Patient seen at the bedside today saying she does not have any chest pain. She said when the chest pain first came about she thought it was related to back pain. She says the back pain this morning is not as bad as her usual. This morning she still has lower back pain but denies chest pain, shortness of breath, nausea, vomiting, changes in vision or hearing. Physical Exam Constitutional: WD/WN, vitals as above Eyes: PERRL, conjunctivae normal, anicteric sclerae Respiratory: normal respiratory effort, lungs clear to auscultation Cardiovascular: RRR, no murmur, no edema Gastrointestinal (Abdomen): normal bowel sounds, soft, nontender, no hepatosplenomegaly Psychiatric: A+Ox3, euthymic affect Results & Data Results & Data ([facility]) Vital Signs (Past 12 Hours) Vital Signs Temp Pulse Pulse Resp BP Pulse Ox O2 Del Method 09/24/21 06:00 86 18 129/87 96 Room Air 09/24/21 05:00 82 20 127/82 93 Room Air 09/24/21 04:00 36.7 C 88 19 107/76 94 Room Air 09/24/21 03:00 90 22 116/67 92 Room Air 09/24/21 02:00 66 23 122/73 93 Room Air 09/24/21 01:00 69 21 113/76 91 Room Air 09/24/21 00:23 94 H 18 96 Room Air 09/24/21 00:00 36.5 C 67 24 114/73 94 Room Air 09/23/21 23:00 67 22 132/79 94 Room Air 09/23/21 22:00 66 16 130/88 94 Room Air 09/23/21 21:15 65 24 Room Air 09/23/21 21:04 72 22 142/87 H Room Air 09/23/21 20:45 64 17 Room Air 09/23/21 20:30 64 20 Room Air 09/23/21 20:15 64 22 Room Air 09/23/21 20:00 36.7 C 69 20 115/73 94 Room Air 09/23/21 19:45 66 22 Room Air Resident Activity Tracking Resident Involvement: Resident Care Provided Care Provided: Adult Hospital Medicine (1) Back pain Back pain laterality: unspecified Back pain location: back pain in unspecified location Chronicity: chronic Qualified Code(s): M54.9 - Dorsalgia, unspecified; G89.29 - Other chronic pain (2) ST elevation (STEMI) myocardial infarction Involved coronary artery: unspecified coronary artery Qualified Code(s): I21.3 - ST elevation (STEMI) myocardial infarction of unspecified site
[2021-09-24] MEDS: LIDOCAINE 5% 1 PATCH TD SCH (07:34)
[2021-09-24] MEDS: CLOPIDOGREL BISULFATE 75 MG TAB PO SCH (07:34)
[2021-09-24] MEDS: DULoxetine HCL 30 MG CAP PO SCH (07:34)
[2021-09-24] MEDS: ASPIRIN 81 MG ECTAB PO SCH (07:34)
[2021-09-24] MEDS: UMECLIDINIUM/VILANTEROL 62.5/25MCG 7 PUFFS/INHALER INH SCH (07:34)
[2021-09-24] MEDS: FLUTICASONE FUROATE 100MCG 14 PUFFS/INHALER INH SCH (07:35)
[2021-09-24] MEDS ORDERED: METOPROLOL TARTRATE 25 MG TAB PO SCH (09:00)
[2021-09-24] MEDS ORDERED: predniSONE 20 MG TAB PO ONE (09:00)
--- NOTE | 2021-09-24 09:53 | Billing Data ---
Date of Service September 24, 2021 Coding Level of Care Code 84266 Subseq Hosp Care Lvl 1
--- NOTE | 2021-09-24 10:45 | Cardiology Consultation ---
Date of Consultation September 24, 2021 Assessment & Plan (1) ST elevation (STEMI) myocardial infarction: (2) CAD (coronary artery disease): (3) Mitral regurgitation: (4) Smoker: Plan 1. ST-elevation myocardial infarction: She had an unusual presentation. Perhaps some of her gastrointestinal symptoms leading up to admission represented cardiac ischemia. Does appear to have improved. With the chronicity of her right coronary occlusion is also unclear. Nonetheless, she did undergo revascularization appears to be doing well. Will continue dual anti-platelet therapy. Beta-blockade to started this morning. Will monitor her pressure and start Chidi inhibition later today. She will be started on high-dose atorvastatin. No electrical complications. No arrhythmias. No evidence of pulmonary vascular congestion. 2. Coronary disease: Some nonobstructive disease involving the LAD. Will start aggressive secondary prevention with high-dose atorvastatin. Patient will need to discontinue tobacco use. 3. Mitral regurgitation: Mild to moderate. Possibly related to her recent infarct. Hopefully with resolution of her wall motion abnormality this will improve as well. 4. Right ventricular failure: She appeared to have some compromised right ventricular function. Whether this is chronic and related to underlying pulmonary disease is unclear. She had a proximal occlusion the right coronary in this may have compromised circulation to the right ventricle. No significant peripheral edema currently. IVC was dilated but she has been getting intravenous fluids since admission. We will need to monitor hemodynamics closely with initiation of beta-blockade and discontinuation of the IV fluids. 5. Tobacco abuse: Counseled regarding the need to stop History of Present Illness Reason for Consultation: ST-elevation myocardial infarction Requesting Physician: Zhou Attending Physician: Timothy Phelan MD History of Present Illness The patient is a 66-year-old woman without a known history of cardiovascular disease who presented the emergency room primarily for evaluation of back discomfort. The patient's mother recently and she has been lifting boxes and packing her mother's belongings. This is more activity than she has accustomed. She believes she strained her back in presented to emergency room with complaints upper back discomfort and spasms across the precordium. Additionally she has been having some symptoms of nausea and vomiting over the past several days which was made worse with prescription of prednisone for her symptoms. It seems that than the course of her hospital evaluation cardiac biomarkers were obtained which are markedly elevated. Subsequent EKG demonstrated a pattern consistent with acute inferior myocardial infarction new she was brought emergently to the catheterization suite where she was discovered to have occlusion of the right coronary artery. Stents were placed in the right coronary artery with good result. Both radial and femoral access will required for the procedure. Ventriculogram obtained at that time suggested mildly reduced LV systolic function with regional wall motion abnormality involving the inferior wall. This morning the patient's symptoms continue to involve back discomfort. This is better in certain positions. It is similar to back pain she has had in the past. She seems to have had resolution of most of her gastrointestinal symptoms. She was able to tolerate breakfast without any discomfort this morning. The cage in a spasms of discomfort that involve her sides and flank appear to have improved as well. In general she is limited by orthopedic problems. She has had multiple back surgeries. She apparently has some loose hardware in the right lower back which limits her ambulation. She does not describe symptoms of chest discomfort with ambulation. No symptoms currently of chest discomfort or breathing difficulty. Allergies Allergy/AdvReac Type Severity Reaction Status Date / Time buprenorphine [From Suboxone] Allergy Mild itching Verified 06/25/21 16:00 naloxone [From Suboxone] Allergy Mild itching Verified 06/25/21 16:00 Home Medications Medication Instructions Recorded Confirmed Type clindamycin phosphate 1 % topical 1 applic topical DAILY #30 mL 03/21/21 06/25/21 Rx solution cyclobenzaprine 5 mg tablet 5 mg PO TID PRN muscle spasm #20 06/13/21 06/25/21 Rx tabs albuterol sulfate 90 mcg/actuation 2 puff inhalation Q6H PRN 06/25/21 06/25/21 Rx aerosol inhaler shortness of breath or wheezing #18 grams azithromycin 250 mg tablet See Rx Instructions PO .COMPLEX #6 06/25/21 06/25/21 Rx tabs compressor, for nebulizer #1 ea 06/25/21 06/25/21 Rx fluticasone fur. 100 mcg-umeclid 1 inh inhalation Q24H #60 ea 06/25/21 06/25/21 Rx 62.5 mcg-vilant 25 mcg inhalat.powder (Trelegy Ellipta) prednisone 20 mg tablet 40 mg PO DAILY 5 days #10 tabs 06/25/21 06/25/21 Rx albuterol sulfate 1.25 mg/3 mL 1.25 mg (3 mL) inhalation QID PRN 06/29/21 Rx solution for nebulization shortness of breath or wheezing #90 mL duloxetine 30 mg capsule,delayed 30 mg PO DAILY #30 caps 07/16/21 Rx release duloxetine 60 mg capsule,delayed 60 mg PO DAILY #30 caps 07/16/21 Rx release Patient History Medical History Anxiety CAD (coronary artery disease) COPD (chronic obstructive pulmonary disease) Depression 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 Left anterior C7 fusion screw protrudes into the prevertebral soft tissue 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) Lumbar pseudoarthrosis Lumbar spondylosis Smoker Surgical History History of fusion of cervical spine History of lumbar surgery Family History Father Heart disease Myocardial infarction Denies family history of Ovarian cancer Prostate cancer Lung cancer Colorectal cancer Social History Smoking Status: Current some day smoker Tobacco Type: Cigarettes Age Quit Using Tobacco: 65; packs per day: 0.5; Years Smoked: 40; Cigarettes Per Day: half a pack; Second Hand Exposure: No; Hx Alcohol Use: No Hx Substance Use: No Preferred Language: Ukrainian Communication Ability: Effective Visual Impairment: No Limitations Frame Bender Required: No Beliefs That Will Affect Care: None marital status: Single Current Living Situation: Alone current occupational status: disabled Feels Safe at Home: Yes Childhood Exposure to Second-Hand Smoke: Yes caffeine: Yes (coffee) during the past year weight has: remained stable Dental Care, Regularly: Yes Physical Activity Frequency: Daily Seatbelt Use: always Sunscreen Use: Yes Assistive Devices: Cane Review of Systems Review of Systems: Per HPI. Physical Exam Physical Exam: She is alert and oriented x3. Mood affect appear normal. She answered all questions appropriately. HEENT: Sclerae are anicteric. Pupils are equal and reactive to light and accommodation. Extraocular movements were intact. Neuro: Cranial nerves intact Lungs: Lungs are clear to auscultation bilaterally. There are no rales wheezes or rhonchi. She has normal respiratory effort without use of accessory muscles. There is normal pulmonary excursion. Cardiac: The rhythm was regular. S1 and S2 were normal. There are no murmurs on examination. The PMI was not markedly displaced on palpation. Extremities: Patient has bilateral radial pulses that are equal in intensity. Good perfusion of the right hand. There is no evidence cyanosis or clubbing. There was no evidence of significant peripheral edema bilaterally. Evaluation of the right femoral area did not reveal any evidence of hematoma. Normal femoral pulse. No bruit on auscultation. Skin: There are no rashes noted on examination today. Results & Data ([facility]) Vital Signs (Past 12 Hours) Vital Signs Temp Pulse Pulse Resp BP Pulse Ox O2 Del Method 09/24/21 09:01 81 28 H 98 09/24/21 09:01 103/63 09/24/21 09:00 83 14 94 09/24/21 08:43 74 24 95 09/24/21 08:43 127/70 09/24/21 08:00 37.0 C 76 24 09/24/21 07:42 72 18 96 09/24/21 07:42 113/67 09/24/21 07:07 59 L 19 09/24/21 06:45 69 20 92 09/24/21 08:00 86 09/24/21 06:00 86 18 129/87 96 Room Air 09/24/21 05:00 82 20 127/82 93 Room Air 09/24/21 04:00 36.7 C 88 19 107/76 94 Room Air 09/24/21 03:00 90 22 116/67 92 Room Air 09/24/21 02:00 66 23 122/73 93 Room Air 09/24/21 01:00 69 21 113/76 91 Room Air 09/24/21 00:23 94 H 18 96 Room Air 09/24/21 00:00 36.5 C 67 24 114/73 94 Room Air 09/23/21 23:00 67 22 132/79 94 Room Air Laboratory Results Abnormal Lab Results 09/23/21 09/23/21 09/23/21 11:10 11:10 11:10 WBC 11.34 H RBC 4.34 Hgb 13.4 Hct 38.4 MCV 88.5 MCH 30.9 MCHC 34.9 RDW Std Deviation 43.1 RDW Coeff of José Miguel 13.2 Plt Count 263 MPV 10.5 Immature Gran % (Auto) 0.4 Neut % (Auto) 78.2 Lymph % (Auto) 12.9 [place] % (Auto) 8.1 Eos % (Auto) 0.2 Baso % (Auto) 0.2 Neut # (Auto) 8.88 H Lymph # (Auto) 1.46 [place] # (Auto) 0.92 H Eos # (Auto) 0.02 Baso # (Auto) 0.02 Immature Gran # (Auto) 0.04 H ESR 57 H PT INR APTT PTT Ratio Sodium 125 L Potassium 4.8 Chloride 93 L Carbon Dioxide 23 Anion Gap 9 BUN 16 Creatinine 0.52 L Est Cr Clr Drug Dosing 117.5 Est GFR ( Amer) 117.0 Est GFR (Non-Af Amer) 101.0 BUN/Creatinine Ratio 30.8 H Glucose 117 H POC Glucose Estimat Average Glucose Hemoglobin A1c Lactate Calcium 9.3 Magnesium Troponin I High Sens 8876.4 H* C-Reactive Protein 15.20 H Triglycerides Cholesterol LDL Cholesterol, Calc VLDL Cholesterol, Calc HDL Cholesterol Cholesterol/HDL Ratio Procalcitonin TSH Nasal Screen MRSA (PCR) SARS-CoV-2, RNA, NAAT 09/23/21 09/23/21 09/23/21 11:10 11:10 11:10 WBC RBC Hgb Hct MCV MCH MCHC RDW Std Deviation RDW Coeff of José Miguel Plt Count MPV Immature Gran % (Auto) Neut % (Auto) Lymph % (Auto) [place] % (Auto) Eos % (Auto) Baso % (Auto) Neut # (Auto) Lymph # (Auto) [place] # (Auto) Eos # (Auto) Baso # (Auto) Immature Gran # (Auto) ESR PT 11.3 INR 1.1 APTT 25.6 PTT Ratio 0.9 Sodium Potassium Chloride Carbon Dioxide Anion Gap BUN Creatinine Est Cr Clr Drug Dosing Est GFR ( Amer) Est GFR (Non-Af Amer) BUN/Creatinine Ratio Glucose POC Glucose Estimat Average Glucose Hemoglobin A1c Lactate 2.2 H* Calcium Magnesium Troponin I High Sens C-Reactive Protein Triglycerides Cholesterol LDL Cholesterol, Calc VLDL Cholesterol, Calc HDL Cholesterol Cholesterol/HDL Ratio Procalcitonin 0.15 TSH Nasal Screen MRSA (PCR) SARS-CoV-2, RNA, NAAT 09/23/21 09/23/21 09/23/21 11:10 13:27 13:32 WBC RBC Hgb Hct MCV MCH MCHC RDW Std Deviation RDW Coeff of José Miguel Plt Count MPV Immature Gran % (Auto) Neut % (Auto) Lymph % (Auto) [place] % (Auto) Eos % (Auto) Baso % (Auto) Neut # (Auto) Lymph # (Auto) [place] # (Auto) Eos # (Auto) Baso # (Auto) Immature Gran # (Auto) ESR PT INR APTT PTT Ratio Sodium Potassium Chloride Carbon Dioxide Anion Gap BUN Creatinine Est Cr Clr Drug Dosing Est GFR ( Amer) Est GFR (Non-Af Amer) BUN/Creatinine Ratio Glucose POC Glucose Estimat Average Glucose Hemoglobin A1c Lactate 2.0 Calcium Magnesium Troponin I High Sens C-Reactive Protein Triglycerides Cholesterol LDL Cholesterol, Calc VLDL Cholesterol, Calc HDL Cholesterol Cholesterol/HDL Ratio Procalcitonin TSH 0.808 Nasal Screen MRSA (PCR) SARS-CoV-2, RNA, NAAT NEGATIVE 09/23/21 09/23/21 09/23/21 16:22 20:45 20:55 WBC RBC Hgb Hct MCV MCH MCHC RDW Std Deviation RDW Coeff of José Miguel Plt Count MPV Immature Gran % (Auto) Neut % (Auto) Lymph % (Auto) [place] % (Auto) Eos % (Auto) Baso % (Auto) Neut # (Auto) Lymph # (Auto) [place] # (Auto) Eos # (Auto) Baso # (Auto) Immature Gran # (Auto) ESR PT INR APTT PTT Ratio Sodium Potassium Chloride Carbon Dioxide Anion Gap BUN Creatinine Est Cr Clr Drug Dosing Est GFR ( Amer) Est GFR (Non-Af Amer) BUN/Creatinine Ratio Glucose POC Glucose Estimat Average Glucose Hemoglobin A1c Lactate Calcium Magnesium Troponin I High Sens 7784.7 H* 98586.4 H* D C-Reactive Protein Triglycerides Cholesterol LDL Cholesterol, Calc VLDL Cholesterol, Calc HDL Cholesterol Cholesterol/HDL Ratio Procalcitonin TSH Nasal Screen MRSA (PCR) Negative SARS-CoV-2, RNA, NAAT 09/23/21 09/24/21 09/24/21 20:55 04:33 04:33 WBC 10.09 RBC 4.00 Hgb 12.1 Hct 36.5 MCV 91.3 MCH 30.3 MCHC 33.2 RDW Std Deviation 44.5 RDW Coeff of José Miguel 13.2 Plt Count 222 MPV 10.5 Immature Gran % (Auto) 0.3 Neut % (Auto) 62.3 Lymph % (Auto) 26.2 [place] % (Auto) 9.8 Eos % (Auto) 0.7 Baso % (Auto) 0.7 Neut # (Auto) 6.29 Lymph # (Auto) 2.64 [place] # (Auto) 0.99 H Eos # (Auto) 0.07 Baso # (Auto) 0.07 Immature Gran # (Auto) 0.03 H ESR PT INR APTT PTT Ratio Sodium 127 L 129 L Potassium 4.4 3.9 Chloride 98 97 L Carbon Dioxide 23 24 Anion Gap 6 8 BUN 16 13 Creatinine 0.51 L 0.45 L Est Cr Clr Drug Dosing 120.5 136.6 Est GFR ( Amer) 117.8 122.7 Est GFR (Non-Af Amer) 101.6 105.9 BUN/Creatinine Ratio 31.4 H 28.9 H Glucose 103 H 59 L POC Glucose Estimat Average Glucose Hemoglobin A1c Lactate Calcium 8.0 L 8.2 L Magnesium 1.7 Troponin I High Sens 61491.4 H* C-Reactive Protein Triglycerides 95 Cholesterol 131 LDL Cholesterol, Calc 72 VLDL Cholesterol, Calc 19 HDL Cholesterol 40 Cholesterol/HDL Ratio 3.3 Procalcitonin TSH Nasal Screen MRSA (PCR) SARS-CoV-2, RNA, NAAT 09/24/21 09/24/21 04:33 05:37 WBC RBC Hgb Hct MCV MCH MCHC RDW Std Deviation RDW Coeff of José Miguel Plt Count MPV Immature Gran % (Auto) Neut % (Auto) Lymph % (Auto) [place] % (Auto) Eos % (Auto) Baso % (Auto) Neut # (Auto) Lymph # (Auto) [place] # (Auto) Eos # (Auto) Baso # (Auto) Immature Gran # (Auto) ESR PT INR APTT PTT Ratio Sodium Potassium Chloride Carbon Dioxide Anion Gap BUN Creatinine Est Cr Clr Drug Dosing Est GFR ( Amer) Est GFR (Non-Af Amer) BUN/Creatinine Ratio Glucose POC Glucose 103 H Estimat Average Glucose 128 Hemoglobin A1c 6.1 H Lactate Calcium Magnesium Troponin I High Sens C-Reactive Protein Triglycerides Cholesterol LDL Cholesterol, Calc VLDL Cholesterol, Calc HDL Cholesterol Cholesterol/HDL Ratio Procalcitonin TSH Nasal Screen MRSA (PCR) SARS-CoV-2, RNA, NAAT Diagnostic Findings Chest x-ray obtained yesterday did not reveal any acute cardiopulmonary process. Coronary angiography performed yesterday revealed 100% occlusion of the right coronary artery. Right dominant coronary system. Nonobstructive disease in the LAD. Ejection fraction estimated at 40% with inferior wall hypokinesis. PG Care Time/CCT Total # of Minutes Spent Total Time Spent with Patient: Total time spent is greater than 50% in coordination of care (as documented) at patient's floor/unit and/or counseling patient: Coding Level of Care Code 64057 Inpt Consult Level [address] elevation (STEMI) myocardial infarction I21.3 Involved coronary artery: unspecified coronary artery CAD (coronary artery disease) I25.10 Mitral regurgitation I34.0 Smoker F17.200 (1) ST elevation (STEMI) myocardial infarction Involved coronary artery: unspecified coronary artery Qualified Code(s): I21.3 - ST elevation (STEMI) myocardial infarction of unspecified site
[2021-09-24] MEDS: MAGNESIUM SULFATE / D5W 1 GM/100 ML BAG IV SCH ×2 (10:55→13:06)
--- NOTE | 2021-09-24 10:55 | XCELERA ---
[id number]
--- NOTE | 2021-09-24 11:47 | Hospitalist Progress Note ---
Date of Service September 24, 2021 Assessment & Plan (1) ST elevation (STEMI) myocardial infarction: Plan: STEMI with stenting to RCA - complicated with dissection - HScTNI has not plateaued yet at this point. No further chest pain. - Continue ASA/PLavix - Lopressor 25 mg p.o. twice daily - ADE/ARB per cardiology - Bedrest 4-6 hours following femoral closure - Atorvastatin 40mg daily. Will need to be added on discharge - HGB A1C 6.1 - Replete magnesium. We will give 2 g magnesium sulfate today check repeat magnesium level in the morning Cath summary: RCA 100 % occlusion LAD 50% in the midsegment LCX: minimal irregularities Left Ventricular Angiography EF (%): 40 Wall Motion: Inferior (Akinetic) Mitral Regurgitation: 1+ Further echocardiograms per cardiology (2) Back pain: Plan: Chronic - continue cyclobenzaprine prn - Continue lidocaine patch - Tylenol prn - continue steroid taper- 20mg tomorrow then 10mg then stop - Continue to increase ambulation as tolerated - Discontinue famotidine - MRI thoracic spine with no evidence of thoracic cord compression. Normal thoracic cord signal and caliber. Multilevel degenerative disc disease and facet arthrosis within the thoracic spine. No severe stenosis. Mild multilevel central canal neural foraminal stenosis. - MRI of the lumbar spine with extensive postoperative findings within the spine.Multilevel posterior decompression and discectomy with T12-L5 bilateral pedicle screw fusion. No lumbar spine fracture. No significant central stenosis within the lumbar spine. Neural foramen suboptimally assessed due to susceptibility artifact from hardware. Moderate multilevel narrowing. - Outpatient management with spine ortho when recovered from cardiac event (3) COPD (chronic obstructive pulmonary disease): Plan: Continues to smoke- smoking cessation education post [place] - Patient is encouraged to stop smoking - Will order NicoDerm patch 7 mg - no recent PFTs - Last admission for exacerbation was 10/14 - Continue albuterol inh/nebulizers - Continue Trelegy or equivalent - Patient should follow-up with pulmonary for PFTs and ongoing treatment (4) Depression: Plan: Patient very tearful today when discussing cardiac event Mother approximately 6 weeks ago and patient was unable to be with her when she was placed on hospice Social stressors with moving to the area Continue Duloxetine (Cymbalta) 90mg daily Brother lives in the area but is not very supportive. However he is taking care of her dog while she is in the hospital and she does have contact with him Patient encouraged to follow-up with outpatient counseling on discharge Admission and Anticipated Discharge Date Admission Date: September 23, 2021 Subjective Attending: Dr. Phelan Is a 66-year-old female admitted yesterday for upper back pain. Upon further return from MRI patient had EKG which demonstrated STEMI of inferior leads. Heart alert was called and patient was taken to [facility] and received 3 drug-eluting stents to the RCA. Patient is pain-free today. Troponin continues to elevate and has not plateaued. Aside from patient's chronic back pain, she has no acute chest pain or other findings. Patient's electrolytes are being repleted. She has received 2 g of magnesium sulfate today. Sodium is trending low normal at 129. Patient with no confusion. Patient also had an episode of hypoglycemia overnight. Hemoglobin A1c is 6.1. Aside from anxiety over admission, patient has no acute complaints at this time. Review of Systems Review of Systems: A total of 10 systems was reviewed and is negative other than as listed in the HPI Physical Exam Physical Exam: GENERAL : No acute distress EYES: No icterus, gaze conjugate NOSE: No evidence of epistaxis MOUTH: No lesions or candidiasis NECK: Supple LUNGS: CTA B/L, no wheezes, rales or rhonchi HEART: Regular, rate controlled ABDOMEN: Soft, NT, ND, BS Present EXTREMITIES: No LE edema, pedal pulses intact NEURO: A&OX3 Results & Data Results & Data ([facility]) Vital Signs (Past 12 Hours) Vital Signs Temp Pulse Pulse Resp BP BP Pulse Ox 09/24/21 11:00 36.4 C L 67 16 118/91 97 09/24/21 09:01 81 28 H 98 09/24/21 09:01 103/63 09/24/21 09:00 83 14 94 09/24/21 08:43 74 24 95 09/24/21 08:43 127/70 09/24/21 08:00 37.0 C 76 24 09/24/21 07:42 72 18 96 09/24/21 07:42 113/67 09/24/21 07:07 59 L 19 09/24/21 06:45 69 20 92 09/24/21 08:00 86 09/24/21 06:00 86 18 129/87 96 09/24/21 05:00 82 20 127/82 93 09/24/21 04:00 36.7 C 88 19 107/76 94 09/24/21 03:00 90 22 116/67 92 09/24/21 02:00 66 23 122/73 93 09/24/21 01:00 69 21 113/76 91 09/24/21 00:23 94 H 18 96 09/24/21 00:00 36.5 C 67 24 114/73 94 O2 Del Method 09/24/21 11:00 Room Air 09/24/21 09:01 09/24/21 09:01 09/24/21 09:00 09/24/21 08:43 09/24/21 08:43 09/24/21 08:00 09/24/21 07:42 09/24/21 07:42 09/24/21 07:07 09/24/21 06:45 09/24/21 08:00 09/24/21 06:00 Room Air 09/24/21 05:00 Room Air 09/24/21 04:00 Room Air 09/24/21 03:00 Room Air 09/24/21 02:00 Room Air 09/24/21 01:00 Room Air 09/24/21 00:23 Room Air 09/24/21 00:00 Room Air Critical Care Results & Data Vital Signs (Past 12 Hours) Vital Signs Temp Pulse Pulse Resp BP BP Pulse Ox 09/24/21 11:00 36.4 C L 67 16 118/91 97 09/24/21 09:01 81 28 H 98 09/24/21 09:01 103/63 09/24/21 09:00 83 14 94 09/24/21 08:43 74 24 95 09/24/21 08:43 127/70 09/24/21 08:00 37.0 C 76 24 09/24/21 07:42 72 18 96 09/24/21 07:42 113/67 09/24/21 07:07 59 L 19 09/24/21 06:45 69 20 92 09/24/21 08:00 86 09/24/21 06:00 86 18 129/87 96 09/24/21 05:00 82 20 127/82 93 09/24/21 04:00 36.7 C 88 19 107/76 94 09/24/21 03:00 90 22 116/67 92 09/24/21 02:00 66 23 122/73 93 09/24/21 01:00 69 21 113/76 91 09/24/21 00:23 94 H 18 96 09/24/21 00:00 36.5 C 67 24 114/73 94 O2 Del Method 09/24/21 11:00 Room Air 09/24/21 09:01 09/24/21 09:01 09/24/21 09:00 09/24/21 08:43 09/24/21 08:43 09/24/21 08:00 09/24/21 07:42 09/24/21 07:42 09/24/21 07:07 09/24/21 06:45 09/24/21 08:00 09/24/21 06:00 Room Air 09/24/21 05:00 Room Air 09/24/21 04:00 Room Air 09/24/21 03:00 Room Air 09/24/21 02:00 Room Air 09/24/21 01:00 Room Air 09/24/21 00:23 Room Air 09/24/21 00:00 Room Air Lab & Micro Results (Past 24 Hours) RBC 4.00 M/uL (3.93-5.22) 09/24/21 WBC 10.09 K/ul (4.8-10.8) 09/24/21 Hgb 12.1 g/dl (12.0-16.0) 09/24/21 Hct 36.5 % (34.1-44.9) 09/24/21 MCV 91.3 fL (80.0-100.0) 09/24/21 MCH 30.3 pg (25.0-34.0) 09/24/21 MCHC 33.2 g/dL (32.0-36.0) 09/24/21 RDW Standard Deviation 44.5 fL (36.4-46.3) 09/24/21 RDW Coefficient of Variation 13.2 % (11.5-14.5) 09/24/21 Plt Count 222 K/uL (130-400) 09/24/21 MPV 10.5 fL (9.4-12.3) 09/24/21 Neutrophils (%) (Auto) 62.3 % 09/24/21 Lymphocytes (%) (Auto) 26.2 % 09/24/21 Monocytes # (Auto) 0.99 K/uL (0.24-0.82) H 09/24/21 Eosinophils # (Auto) 0.07 K/uL (0-0.50) 09/24/21 Immature Granulocyte % (Auto) 0.3 % 09/24/21 Neutrophils # (Auto) 6.29 K/uL (1.4-6.5) 09/24/21 Lymphocytes # (Auto) 2.64 K/uL (1.2-3.4) 09/24/21 Monocytes # (Auto) 0.99 K/uL (0.24-0.82) H 09/24/21 Eosinophils # (Auto) 0.07 K/uL (0-0.50) 09/24/21 Basophils # (Auto) 0.07 K/uL (0-0.2) 09/24/21 Immature Granulocyte # (Auto) 0.03 K/uL (0.00-0.02) H 09/24 Na 129 mmol/L (136-145) L 09/24/21 K 3.9 mmol/L (3.5-5.1) 09/24/21 Cl 97 mmol/L (98-107) L 09/24/21 CO2 24 mmol/L (21-32) 09/24/21 Anion Gap 8 (3-11) 09/24/21 BUN 13 mg/dl (6-23) 09/24/21 Creatinine 0.45 mg/dl (0.6-1.2) L 09/24/21 Estimated GFR ( Amer) 122.7 ml/min 09/24/21 Estimated GFR (Non-Af Amer) 105.9 ml/min 09/24/21 BUN/Creatinine Ratio 28.9 (10-20) H 09/24/21 Glu 59 mg/dl (70-99(Fasting)) L 09/24/21 Ca 8.2 mg/dl (8.5-10.1) L 09/24/21 Mg 1.7 mg/dl (1.7-2.4) 09/24/21 04:33 Calcium Level 8.2 mg/dl (8.5-10.1) L 09/24/21 04:33 Diagnostic Findings (Past 24 Hours) Lumbar Spine MRI 09/23/21 10:03 MRI OF THE LUMBAR SPINE WITH AND WITHOUT CONTRAST CLINICAL HISTORY: Severe back pain. Evaluate for cord compression. COMPARISON STUDY: Lumbar spine MRI December 08, 2013. TECHNIQUE: Utilizing a 1.5 Cinda magnet and dedicated coil, multiplanar, multiecho imaging of the lumbar spine was performed before and after uneventful IV administration of 6.5 mL of Gadavist. FINDINGS: For purposes of numbering on this exam, the L5-S1 disc space is assigned to axial image 36 of 41. There is straightening of the normal lumbar lordosis. Vertebral body heights are maintained. There is no compression fracture. Evaluation is compromised by susceptibility artifact from surgical hardware. Víctor ateral pedicle screw fusion from T12 through L5 is noted with multilevel discectomy. No intracanalicular mass or fluid collection. Paravertebral soft tissues are grossly unremarkable. Conus terminates at approximately the upper L1 level. Left renal cyst is incidentally noted. L1-2: The central canal is patent. Neural foramen are also patent although partially obscured due to susceptibility artifact. L2-3: Central canal is patent. Neural foramen are grossly patent. L3-4: Central canal is patent. Neural foramen are grossly patent. L4-5: Central canal and left neural foramen are patent. Mild narrowing of the right neural foramen. L5-S1: Disc bulge is present. There is minimal central canal narrowing. Neural foramen are suboptimally assessed on this exam. Moderate left and mild right neural foraminal stenosis is suspected. IMPRESSION: 1. Extensive postoperative findings within the spine, as described above. Multilevel posterior decompression and discectomy with T12-L5 bilateral pedicle screw fusion. 2. No lumbar spine fracture. No significant central stenosis within the lumbar spine. 3. Neural foramen suboptimally assessed due to susceptibility artifact from hardware. Moderate multilevel narrowing, as described above. ACT 112: Negative or not required by law. Electronically signed by: Panchito Feldman M.D. 09/23/2021 1:23 PM Thoracic Spine MRI 09/23/21 10:03 MRI OF THE THORACIC SPINE WITH AND WITHOUT CONTRAST CLINICAL HISTORY: Severe back pain. Evaluate for cord compression. COMPARISON: Thoracic spine MRI May 17, 2010. TECHNIQUE: Utilizing a 1.5 Cinda magnet and dedicated coil, multiplanar, multiecho imaging of the thoracic spine was performed before and after the intravenous administration of 6.5 cc. FINDINGS: Exam is mildly compromised by motion artifact. No acute thoracic spine fracture is noted. There is no suspicious marrow replacement. Thoracic cord signal and caliber are normal. There is no intracanalicular mass or fluid collection. No abnormal enhancement within the thoracic canal is noted. Discogenic changes are most pronounced at the T3-T4 level. Paravertebral soft tissues are unremarkable. Moderate multilevel disc space narrowing is noted. There are multiple small disc protrusions. There is mild multilevel central canal stenosis within the thoracic spine. Mild multilevel neural foraminal stenosis is also present. Postoperative findings within the cervical spine are partially imaged. Thoracolumbar spine fusion is better depicted on the lumbar spine CT which will be reported separately. IMPRESSION: 1. Exam mildly compromised by motion artifact. No thoracic cord compression. Normal thoracic cord signal and caliber. 2. Multilevel degenerative disc disease and facet arthrosis within the thoracic spine. No severe stenosis. Mild multilevel central canal or neural foraminal stenosis. ACT 112: Negative or not required by law. Electronically signed by: Panchito Feldman M.D. 09/23/2021 1:11 PM I & O Totals 24 Hours 09/23/21 09/24/21 09/25/21 06:59 06:59 06:59 Intake Total 2845.583 / 2845.583 505.5 / 505.5 Output Total 701 / 701 Balance 2144.583 / 2144.583 505.5 / 505.5 Cumulative 09/23/21 09:15 thru 09/24/21 10:17 Intake Total 3351.083 Output Total 701 Balance 2650.083 RT Ventilator Mngmt (Last Documented) Ventilator Ordered Settings Respiratory Rate 16 09/24/21 11:00 Ventilator - PT Measurements Respiratory Rate 16 PG Care Time/CCT Total # of Minutes Spent Total Time Spent with Patient: Total time spent is greater than 50% in coordination of care (as documented) at patient's floor/unit and/or counseling patient: 30 minutes Coding Level of Care Code 95620 Subseq Hosp Care Lvl [address] elevation (STEMI) myocardial infarction I21.3 Involved coronary artery: unspecified coronary artery Back pain M54.9; G89.29 Back pain laterality: unspecified Back pain location: back pain in unspecified location Chronicity: chronic COPD (chronic obstructive pulmonary disease) J44.9 Depression F32.9 Time Spent (min) 30 (1) ST elevation (STEMI) myocardial infarction Involved coronary artery: unspecified coronary artery Qualified Code(s): I21.3 - ST elevation (STEMI) myocardial infarction of unspecified site (2) Back pain Back pain laterality: unspecified Back pain location: back pain in unspecified location Chronicity: chronic Qualified Code(s): M54.9 - Dorsalgia, unspecified; G89.29 - Other chronic pain
--- NOTE | 2021-09-24 12:18 | Electrocardiogram Report ---
Test Reason : Blood Pressure : / mmHG Vent. Rate : 061 BPM Atrial Rate : 061 BPM P-R Int : 128 ms QRS Dur : 090 ms QT Int : 442 ms P-R-T Axes : 000 -04 095 degrees QTc Int : 444 ms Normal sinus rhythm Inferior infarct (cited on or before 23-SEP-2021) Possible Anterolateral infarct (cited on or before 23-SEP-2021) ACUTE [place] / STEMI Consider right ventricular involvement in acute inferior infarct Abnormal ECG When compared with ECG of 23-SEP-2021 13:18, (unconfirmed) Serial changes of evolving Anterior infarct Present Serial changes of evolving Anterolateral infarct Present Serial changes of evolving Inferior infarct Present Confirmed by Kuldeep Freedman ([id number]) on 09/24/2021 12:17:47 PM Referred By: REFERRED SELF Confirmed By:Claudio Freedman
--- NOTE | 2021-09-24 12:34 | Electrocardiogram Report ---
Test Reason : Blood Pressure : / mmHG Vent. Rate : 082 BPM Atrial Rate : 082 BPM P-R Int : 080 ms QRS Dur : 094 ms QT Int : 406 ms P-R-T Axes : -82 -19 099 degrees QTc Int : 474 ms Unusual P axis and short TN, probable junctional tachycardia Inferior infarct (cited on or before 23-SEP-2021) Anterior infarct (cited on or before 23-SEP-2021) ACUTE [place] / STEMI Consider right ventricular involvement in acute inferior infarct Abnormal ECG Confirmed by Kuldeep Freedman ([id number]) on 09/24/2021 12:34:06 PM Referred By: REFERRED SELF Confirmed By:Claudio Freedman
--- NOTE | 2021-09-24 12:39 | Electrocardiogram Report ---
Test Reason : Blood Pressure : / mmHG Vent. Rate : 067 BPM Atrial Rate : 067 BPM P-R Int : 082 ms QRS Dur : 096 ms QT Int : 432 ms P-R-T Axes : 000 -19 090 degrees QTc Int : 456 ms Possible ectopic atrial rhythm Inferior infarct (cited on or before 23-SEP-2021) Anterior infarct (cited on or before 23-SEP-2021) ACUTE [place] / STEMI Consider right ventricular involvement in acute inferior infarct Abnormal ECG When compared with ECG of 23-SEP-2021 16:01, (unconfirmed) ND interval has decreased Serial changes of evolving Inferior infarct Present Confirmed by Kuldeep Freedman ([id number]) on 09/24/2021 12:39:03 PM Referred By: REFERRED SELF Confirmed By:Claudio Freedman
--- NOTE | 2021-09-24 12:40 | Electrocardiogram Report ---
Test Reason : Blood Pressure : / mmHG Vent. Rate : 079 BPM Atrial Rate : 079 BPM P-R Int : 000 ms QRS Dur : 096 ms QT Int : 406 ms P-R-T Axes : 000 -08 101 degrees QTc Int : 465 ms Junctional rhythm Inferior infarct , possibly acute ACUTE [place] / STEMI Consider right ventricular involvement in acute inferior infarct Abnormal ECG When compared with ECG of 17-OCT-2020 11:18, Inferior infarct is now Present Confirmed by Kuldeep Freedman ([id number]) on 09/24/2021 12:39:50 PM Referred By: REFERRED SELF Confirmed By:Claudio Freedman
[2021-09-24] MEDS: NICOTINE 7 MG/24 HR TDSY TD SCH (12:59)
[2021-09-24] MEDS ORDERED: lisinopril 2.5 MG TAB PO ONE (16:20)
--- NOTE | 2021-09-24 18:14 | Electrocardiogram Report ---
Test Reason : Blood Pressure : / mmHG Vent. Rate : 058 BPM Atrial Rate : 058 BPM P-R Int : 000 ms QRS Dur : 094 ms QT Int : 450 ms P-R-T Axes : 000 -11 105 degrees QTc Int : 441 ms Poor data quality, interpretation may be adversely affected Junctional rhythm Low voltage QRS Inferior infarct (cited on or before 23-SEP-2021) Possible Anterolateral infarct (cited on or before 23-SEP-2021) ACUTE [place] / STEMI Consider right ventricular involvement in acute inferior infarct Abnormal ECG When compared with ECG of 24-SEP-2021 04:53, Rhythm appears junctional. Confirmed by Kuldeep Freedman ([id number]) on 09/24/2021 6:13:35 PM Referred By: REFERRED SELF Confirmed By:Claudio Freedman
[2021-09-24] MEDS: ATORVASTATIN 40 MG TAB PO SCH (21:17)
[2021-09-24] MEDS: MELATONIN 3 MG TAB PO PRN (22:18)
[2021-09-25] MEDS: MoRPHine SULFATE 2 MG/ML CARP IV PRN ×4 (01:24→20:52)
[2021-09-25] MEDS: NICOTINE 7 MG/24 HR TDSY TD SCH (08:57)
[2021-09-25] MEDS: FLUTICASONE FUROATE 100MCG 14 PUFFS/INHALER INH SCH (08:57)
[2021-09-25] MEDS: UMECLIDINIUM/VILANTEROL 62.5/25MCG 7 PUFFS/INHALER INH SCH (08:57)
[2021-09-25] MEDS: DULoxetine HCL 30 MG CAP PO SCH (09:00)
[2021-09-25] MEDS: ASPIRIN 81 MG ECTAB PO SCH (09:00)
[2021-09-25] MEDS ORDERED: predniSONE 10 MG TABLET PO ONE (09:00)
[2021-09-25] MEDS: CLOPIDOGREL BISULFATE 75 MG TAB PO SCH (09:00)
[2021-09-25] MEDS: LIDOCAINE 5% 1 PATCH TD SCH ×2 (09:01→15:57)
[2021-09-25 09:26] LABS: Basophils # (auto) 0.06 K/uL (0-0.2); Basophils % (auto) 0.6 %; Eosinophils % (auto) 1.1 %; Hematocrit (blood only) 31.9 % (34.1-44.9); Immature Granulocytes # (auto) 0.03 K/uL (0.00-0.02); Immature Granulocytes % (auto) 0.3 %; Lymphocytes # (auto) 2.06 K/uL (1.2-3.4); Lymphocytes % (auto) 21.9 %; Mean Corpuscular Hemoglobin 30.3 pg (25.0-34.0); Mean Corpuscular Hgb Conc 34.5 g/dL (32.0-36.0); Mean Corpuscular Volume 87.9 fL (80.0-100.0); Mean Platelet Volume 10.4 fL (9.4-12.3); Monocytes % (auto) 11.7 %; Neutrophils # (auto) 6.06 K/uL (1.4-6.5); Neutrophils % (auto) 64.4 %; Platelet Count 252 K/uL (130-400); RDW Coefficient of Variation 13.3 % (11.5-14.5); RDW Standard Deviation 42.5 fL (36.4-46.3); Red Blood Count 3.63 M/uL (3.93-5.22); White Blood Count 9.41 K/ul (4.8-10.8)
[2021-09-25 09:58] LABS: Calcium 8.1 mg/dl (8.5-10.1); Creatinine Clr Calc Pharmacy 146.3 ml/min; Est GFR (African American) 125.5 ml/min; Est GFR (Non-African American) 108.3 ml/min; Magnesium 1.7 mg/dl (1.7-2.4); Potassium 4.1 mmol/L (3.5-5.1); Troponin I High Sensitivity 6336.9 pg/ml (0-14)
--- NOTE | 2021-09-25 11:15 | Cardiology Progress Note ---
Date of Service September 25, 2021 Assessment & Plan (1) ST elevation (STEMI) myocardial infarction: (2) CAD (coronary artery disease): (3) Mitral regurgitation: (4) Smoker: Plan 1. ST-elevation myocardial infarction: Her presentation was unusual, and she continues to have symptoms of back discomfort occasionally radiating to the precordium in epigastric area. However, her biomarkers are trending down words. She continues to have an abnormal EKG with persistent ST segment elevations. However, I do not believe she is having ongoing ischemia. Beta-dominick was started yesterday but discontinued due to bradycardia and what appeared to be a junctional rhythm in the evening. Lisinopril started yesterday. On high-dose atorvastatin. 2. Coronary disease: Some nonobstructive disease involving the LAD. Continue high-dose atorvastatin and lisinopril. Will wait for an opportunity to reinitiate metoprolol. 3. Mitral regurgitation: Mild to moderate. Possibly related to her recent infarct. Hopefully with resolution of her wall motion abnormality this will improve as well. 4. Right ventricular failure: She appeared to have some compromised right ventricular function on her echocardiogram. We will need to monitor volume status closely. Hemodynamically stable at this time. 5. Tobacco abuse: Counseled regarding the need to stop 6. Dyspnea on exertion: Possibly related to underlying lung disease. Her lung examination was relatively benign today but will need to be mindful of pulmonary edema. I hesitate to give her empiric diuretics and as she may have some compromise right ventricular function. 7. Junctional rhythm: She did not have any discernible P waves on her most recent EKG. It is hard to discern any P waves on her telemetry either. I ordered repeat EKG for today. Metoprolol currently being held. Perhaps with ambulation more activity will get a better understanding of this rhythm. Admission and Anticipated Discharge Date Admission Date: September 23, 2021 Subjective This morning patient continues to have back discomfort. This is alleviated by some changes in position in May worse by other positions. She continues to have a sense of squeezing in the entire chest at times. This waxes and wanes in severity and duration. She feels that she is somewhat short of breath getting back and forth to the commode. No dyspnea at rest. No orthopnea. Review of Systems Review of Systems: Per HPI Physical Exam Physical Exam: She is alert and oriented x3. Mood affect appear normal. She answered all questions appropriately. HEENT: Sclerae are anicteric. Pupils are equal and reactive to light and accommodation. Extraocular movements were intact. Neuro: Cranial nerves intact Lungs: Lungs are clear to auscultation bilaterally. There are no rales wheezes or rhonchi. She has normal respiratory effort without use of accessory muscles. There is normal pulmonary excursion. Cardiac: The rhythm was regular. S1 and S2 were normal. There are no murmurs on examination. The PMI was not markedly displaced on palpation. Extremities: Patient has bilateral radial pulses that are equal in intensity. There is no evidence cyanosis or clubbing. There was no evidence of significant peripheral edema bilaterally. Evaluation of the right femoral area did not reveal any evidence of hematoma. Normal femoral pulse. No bruit on auscultation. Skin: There are no rashes noted on examination today. Results & Data ([facility]) Vital Signs (Past 12 Hours) Vital Signs Temp Pulse Pulse Resp BP BP Pulse Ox 09/25/21 10:28 09/25/21 08:13 36.7 C 67 22 120/76 98 09/25/21 07:28 62 09/25/21 03:03 36.9 C 62 19 105/42 L 93 O2 Del Method 09/25/21 10:28 Room Air 09/25/21 08:13 Room Air 09/25/21 07:28 09/25/21 03:03 Room Air Laboratory Results Abnormal Lab Results 09/23/21 09/25/21 09/25/21 14:12 08:37 08:37 WBC 9.41 RBC 3.63 L Hgb 11.0 L Hct 31.9 L MCV 87.9 MCH 30.3 MCHC 34.5 RDW Std Deviation 42.5 RDW Coeff of José Miguel 13.3 Plt Count 252 MPV 10.4 Immature Gran % (Auto) 0.3 Neut % (Auto) 64.4 Lymph % (Auto) 21.9 [place] % (Auto) 11.7 Eos % (Auto) 1.1 Baso % (Auto) 0.6 Neut # (Auto) 6.06 Lymph # (Auto) 2.06 [place] # (Auto) 1.10 H Eos # (Auto) 0.10 Baso # (Auto) 0.06 Immature Gran # (Auto) 0.03 H Activ Coag Time Kaolin 213 H Sodium 127 L Potassium 4.1 Chloride 97 L Carbon Dioxide 24 Anion Gap 6 BUN 13 Creatinine 0.42 L Est Cr Clr Drug Dosing 146.3 Est GFR ( Amer) 125.5 Est GFR (Non-Af Amer) 108.3 BUN/Creatinine Ratio 31.0 H Glucose 128 H Calcium 8.1 L Magnesium 1.7 Troponin I High Sens 6336.9 H* D Diagnostic Findings Chest x-ray obtained on admission did not reveal any acute cardiopulmonary process. Coronary angiography performed yesterday revealed 100% occlusion of the right coronary artery. Right dominant coronary system. Nonobstructive disease in the LAD. Ejection fraction estimated at 40% with inferior wall hypokinesis. PG Care Time/CCT Total # of Minutes Spent Total Time Spent with Patient: Total time spent is greater than 50% in coordination of care (as documented) at patient's floor/unit and/or counseling patient: Coding Level of Care Code 84695 Subseq Hosp Care Lvl [address] elevation (STEMI) myocardial infarction I21.3 Involved coronary artery: unspecified coronary artery CAD (coronary artery disease) I25.10 Mitral regurgitation I34.0 Smoker F17.200 (1) ST elevation (STEMI) myocardial infarction Involved coronary artery: unspecified coronary artery Qualified Code(s): I21.3 - ST elevation (STEMI) myocardial infarction of unspecified site
[2021-09-25] MEDS: lisinopril 5 MG TAB PO SCH (12:10)
[2021-09-25] MEDS ORDERED: traMADol HCL 50 MG TABLET PO STA (13:52)
[2021-09-25] MEDS: traMADol HCL 50 MG TABLET PO SCH ×2 (14:06→22:02)
--- NOTE | 2021-09-25 15:44 | Electrocardiogram Report ---
Test Reason : Blood Pressure : / mmHG Vent. Rate : 059 BPM Atrial Rate : 058 BPM P-R Int : 000 ms QRS Dur : 090 ms QT Int : 434 ms P-R-T Axes : 000 -19 104 degrees QTc Int : 429 ms Junctional rhythm with retrograde conduction Inferior infarct (cited on or before 23-SEP-2021) T wave abnormality, consider lateral ischemia ACUTE [place] / STEMI Consider right ventricular involvement in acute inferior infarct Abnormal ECG When compared with ECG of 24-SEP-2021 14:42, Serial changes of Inferior infarct Present Confirmed by Kuldeep Freedman ([id number]) on 09/25/2021 3:43:57 PM Referred By: REFERRED SELF Confirmed By:Claudio Freedman
--- NOTE | 2021-09-25 16:30 | Hospitalist Progress Note ---
Date of Service September 25, 2021 Assessment & Plan (1) ST elevation (STEMI) myocardial infarction: Plan: STEMI with stenting to RCA - complicated with dissection - HScTNI peaked and downtrended No further chest pain. - Continue ASA/PLavix - Lopressor 25 mg p.o. twice daily - lisinopril 5mg - Atorvastatin 40mg daily. - HGB A1C 6.1 - Replete magnesium. Cath summary: RCA 100 % occlusion-> stent LAD 50% in the midsegment LCX: minimal irregularities Left Ventricular Angiography EF (%): 40 Wall Motion: Inferior (Akinetic) Mitral Regurgitation: 1+ Further echocardiograms per cardiology (2) Back pain: Plan: Chronic - continue cyclobenzaprine prn - Continue lidocaine patch - Tylenol prn - stopped sterid taper, added ultram as pt states it did help - - MRI thoracic spine with no evidence of thoracic cord compression. Normal thoracic cord signal and caliber. Multilevel degenerative disc disease and facet arthrosis within the thoracic spine. No severe stenosis. Mild multilevel central canal neural foraminal stenosis. - MRI of the lumbar spine with extensive postoperative findings within the spine.Multilevel posterior decompression and discectomy with T12-L5 bilateral pedicle screw fusion. No lumbar spine fracture. No significant central stenosis within the lumbar spine. Neural foramen suboptimally assessed due to susceptibility artifact from hardware. Moderate multilevel narrowing. - Outpatient management with spine ortho when recovered from cardiac event and is thru DAPT therapy (3) COPD (chronic obstructive pulmonary disease): Plan: Continues to smoke- smoking cessation education post [place] - Patient is encouraged to stop smoking - Will order NicoDerm patch 7 mg - no recent PFTs - Last admission for exacerbation was 10/14 - Continue albuterol inh/nebulizers - Continue Trelegy or equivalent - Patient should follow-up with pulmonary for PFTs and ongoing treatment (4) Depression: Plan: Patient very tearful today when discussing cardiac event Mother approximately 6 weeks ago and patient was unable to be with her when she was placed on hospice Social stressors with moving to the area Continue Duloxetine (Cymbalta) 90mg daily Brother lives in the area but is not very supportive. However he is taking care of her dog while she is in the hospital and she does have contact with him Patient encouraged to follow-up with outpatient counseling on discharge Admission and Anticipated Discharge Date Admission Date: September 23, 2021 Subjective pt has no further chest pain has chronic back pain and asks to see Dr Arthur, she cannot have surgical intervention due to stent and DAPT for a few weeks at least, if indicated has chronic GI issues, helped with milk and tums, try gi cocktail and increase gi acid prevention Review of Systems Review of Systems: Mild distress and fatigue no headache, no visual changes no speech or swallowing issues no chest pain, pressure or palpitations no shortness of breath, cough or wheezes epigastric abdominal pain relieved by food, no nausea or vomiting, diarrhea or constipation no dysuria, hematuria or frequency no focal joint pain or swelling lumbar band like back pain without radiation , no CVA tenderness cath access sites are CDI and no bruit heard in groin no focal signs of weakness or numbness or altered sensation no complaints of anxiety or depression.. Results & Data Results & Data ([facility]) Vital Signs (Past 12 Hours) Vital Signs Temp Pulse Pulse Resp BP BP Pulse Ox 09/25/21 16:00 97.5 F L 60 18 128/69 98 09/25/21 15:09 63 09/25/21 12:07 98.2 F 64 22 112/69 97 09/25/21 10:28 09/25/21 08:13 98.1 F 67 22 120/76 98 09/25/21 07:28 62 O2 Del Method 09/25/21 16:00 Room Air 09/25/21 15:09 09/25/21 12:07 Room Air 09/25/21 10:28 Room Air 09/25/21 08:13 Room Air 09/25/21 07:28 PG Care Time/CCT Total # of Minutes Spent Total Time Spent with Patient: Total time spent is greater than 50% in coordination of care (as documented) at patient's floor/unit and/or counseling patient: Coding Level of Care Code 96348 Subseq Hosp Care Lvl [address] elevation (STEMI) myocardial infarction I21.3 Involved coronary artery: unspecified coronary artery Back pain M54.9; G89.29 Back pain laterality: unspecified Back pain location: back pain in unspecified location Chronicity: chronic COPD (chronic obstructive pulmonary disease) J44.9 Depression F32.9 (1) ST elevation (STEMI) myocardial infarction Involved coronary artery: unspecified coronary artery Qualified Code(s): I21.3 - ST elevation (STEMI) myocardial infarction of unspecified site (2) Back pain Back pain laterality: unspecified Back pain location: back pain in unspecified location Chronicity: chronic Qualified Code(s): M54.9 - Dorsalgia, unspecified; G89.29 - Other chronic pain
[2021-09-25] MEDS ORDERED: ALUMINUM/MAGNESIUM SUSP 18 ML, LIDOCAINE VISCOUS 2% SOLN 6 ML, BARCODE IDENTIFIER 1 EACH PO ONE (16:45)
[2021-09-25] MEDS ORDERED: CALCIUM CARBONATE 500 MG CHEWABLE TAB PO PRN (16:46)
[2021-09-25] MEDS: ATORVASTATIN 40 MG TAB PO SCH (20:45)
[2021-09-25] MEDS: MELATONIN 3 MG TAB PO PRN (20:51)
[2021-09-25] MEDS: PANTOprazole 40 MG TAB PO SCH (22:03)
[2021-09-26] MEDS: MoRPHine SULFATE 2 MG/ML CARP IV PRN ×3 (01:13→19:50)
[2021-09-26] MEDS: traMADol HCL 50 MG TABLET PO SCH (05:57)
[2021-09-26 07:08] LABS: Basophils # (auto) 0.05 K/uL (0-0.2); Basophils % (auto) 0.5 %; Eosinophils # (auto) 0.14 K/uL (0-0.50); Eosinophils % (auto) 1.5 %; Hematocrit (blood only) 34.9 % (34.1-44.9); Hemoglobin 11.9 g/dl (12.0-16.0); Immature Granulocytes # (auto) 0.03 K/uL (0.00-0.02); Immature Granulocytes % (auto) 0.3 %; Lymphocytes # (auto) 2.47 K/uL (1.2-3.4); Lymphocytes % (auto) 26.4 %; Mean Corpuscular Hemoglobin 31.1 pg (25.0-34.0); Mean Corpuscular Hgb Conc 34.1 g/dL (32.0-36.0); Mean Corpuscular Volume 91.1 fL (80.0-100.0); Mean Platelet Volume 10.5 fL (9.4-12.3); Monocytes # (auto) 1.15 K/uL (0.24-0.82); Monocytes % (auto) 12.3 %; Neutrophils # (auto) 5.52 K/uL (1.4-6.5); Platelet Count 283 K/uL (130-400); RDW Coefficient of Variation 13.4 % (11.5-14.5); RDW Standard Deviation 44.4 fL (36.4-46.3); Red Blood Count 3.83 M/uL (3.93-5.22); White Blood Count 9.36 K/ul (4.8-10.8)
[2021-09-26 07:47] LABS: BUN Creatinine Ratio 24.4 (10-20); Calcium 8.3 mg/dl (8.5-10.1); Creatinine Clr Calc Pharmacy 136.6 ml/min; Est GFR (African American) 122.7 ml/min; Est GFR (Non-African American) 105.9 ml/min; Magnesium 1.7 mg/dl (1.7-2.4); Potassium 4.2 mmol/L (3.5-5.1)
[2021-09-26] MEDS: FLUTICASONE FUROATE 100MCG 14 PUFFS/INHALER INH SCH (08:33)
[2021-09-26] MEDS: lisinopril 5 MG TAB PO SCH (08:34)
[2021-09-26] MEDS: NICOTINE 7 MG/24 HR TDSY TD SCH (08:34)
[2021-09-26] MEDS: DULoxetine HCL 30 MG CAP PO SCH (08:34)
[2021-09-26] MEDS: UMECLIDINIUM/VILANTEROL 62.5/25MCG 7 PUFFS/INHALER INH SCH (08:34)
[2021-09-26] MEDS: CLOPIDOGREL BISULFATE 75 MG TAB PO SCH (08:34)
[2021-09-26] MEDS: ASPIRIN 81 MG ECTAB PO SCH (08:34)
[2021-09-26] MEDS: LIDOCAINE 5% 1 PATCH TD SCH ×2 (08:35→09:38)
[2021-09-26] MEDS: PANTOprazole 40 MG TAB PO SCH ×2 (09:38→20:08)
[2021-09-26] MEDS ORDERED: FUROSEMIDE INJ 20 MG/2 ML VIAL IV ONE (10:15)
--- NOTE | 2021-09-26 11:43 | Hospitalist Progress Note ---
Date of Service September 26, 2021 Assessment & Plan (1) ST elevation (STEMI) myocardial infarction: Plan: STEMI 2nd to occluded proximal RCA. s/p CARLIE. Peak troponin 12,500. Additional cath findings - LAD 50% stenosis - midsegment LCX - minimal irregularities Remains on ASA/Plavix; metoprolol 25mg BID on hold; lisinopril 5mg to be placed on hold due to low-normal BPs. Continue Atorvastatin 40mg daily. Despite back pain her troponins downtrended nicely, and no further ischemia is suspected. (2) Acute right-sided congestive heart failure: Plan: Post-OR echo with preserved EF but RV dysfunction. RV dysfunction likely due to right-sided OR. Concern for decompensation - IV lasix x 1 ordered by cardiology today. BMP in am. reassess in am. (3) Junctional rhythm: Plan: EKGs and telemetry have shown intermittent junctional rhythm with no discernible P waves seen on tele/EKG. Dr Freedman has evaluated, and likely to perform EP study tomorrow to assess her electrical pathway. NPO after MN for such. HOLD beta dominick. TSH wnl. (4) Back pain: Plan: Chronic. Multiple lumbar spine surgeries both in [place] and in [place]. MRI thoracic spine -- no evidence of thoracic cord compression. Normal thoracic cord signal and caliber. Multilevel degenerative disc disease and facet arthrosis within the thoracic spine. No severe stenosis. Mild multilevel central canal neural foraminal stenosis. MRI of the lumbar spine -- extensive postoperative findings within the spine. Multilevel posterior decompression and discectomy with T12-L5 bilateral pedicle screw fusion. No lumbar spine fracture. No significant central stenosis within the lumbar spine. Neural foramen suboptimally assessed due to susceptibility artifact from hardware. Moderate multilevel narrowing. Flexeril prn. [place] 7.5mg prn. Send to [facility] or [facility] after discharge for consultation with ortho-spine. If she ever needed back surgery once again it would be extensive. (5) COPD (chronic obstructive pulmonary disease): Plan: Continue albuterol prn Continue Trelegy or equivalent Patient should follow-up with pulmonary for PFTs and ongoing treatment Tobacco cessation needed (6) Depression: Plan: Continue Duloxetine (Cymbalta) 90mg daily Consider increase to 120mg daily Outpatient counseling (7) Acute hyponatremia: Plan: Low urine Na c/w solute deficiency TSH wnl Random cortisol would not be helpful as she just received prednisone for her back in the last few days To r/o adrenal insufficiency as a contributor to the low Na will order cosyntropin stim test in am NPO after MN for such BMP in am (8) Tobacco dependence: Plan: cessation needed nicoderm patch Plan DVT proph - needs prophy if she stays hospitalized beyond tomorrow Admission and Anticipated Discharge Date Admission Date: September 23, 2021 Subjective tele - continues with accelerated junctional rhythm patient's main complaint is that of ongoing back pain was supposed to have lumbar spine revision surgery in September 2020 in [place], [place] her previous lumbar surgeries were done both locally here at [facility] (Ant Mcbride MD), and in 2019 in [place] she mentions previous use of subutex while living in [place] also mentions several referrals to [facility] but missed these appointments in the last year very tearful when discussing her back pain she denies any central abd pain or chest pain denies dyspnea at rest but has had mild COWART Review of Systems Review of Systems: gen - no fevers cv - no cp, no orthopnea pulm - mild cough GI - no nausea or emesis Physical Exam Physical Exam: gen - tearful, otherwise NAD mouth - MMM neck - no obvious JVD heart - RRR, s1 s2, no murmur lungs - mild end-exp wheezes b/l, no rales abd - soft NT ND BS+ ext - no edema, pulses 2+ b/l musculo - back - muscle spasm of b/l paraspinal musculature of lumbar region neuro - strength 5/5 x b/l legs Results & Data Results & Data ([facility]) Vital Signs (Past 12 Hours) Vital Signs Temp Pulse Pulse Resp BP Pulse Ox O2 Del Method 09/26/21 10:05 Room Air 09/26/21 08:19 36.9 C 61 18 107/53 L 97 Room Air 09/26/21 07:18 58 L 09/26/21 04:11 36.2 C L 59 L 19 113/66 94 Room Air Laboratory Results Laboratory Results - last 24 hr 09/26/21 09/26/21 09/26/21 06:40 06:40 06:40 WBC 9.36 RBC 3.83 L Hgb 11.9 L Hct 34.9 MCV 91.1 MCH 31.1 MCHC 34.1 RDW Std Deviation 44.4 RDW Coeff of José Miguel 13.4 Plt Count 283 MPV 10.5 Immature Gran % (Auto) 0.3 Neut % (Auto) 59.0 Lymph % (Auto) 26.4 [place] % (Auto) 12.3 Eos % (Auto) 1.5 Baso % (Auto) 0.5 Neut # (Auto) 5.52 Lymph # (Auto) 2.47 [place] # (Auto) 1.15 H Eos # (Auto) 0.14 Baso # (Auto) 0.05 Immature Gran # (Auto) 0.03 H Sodium 128 L Potassium 4.2 Chloride 96 L Carbon Dioxide 25 Anion Gap 7 BUN 11 Creatinine 0.45 L Est Cr Clr Drug Dosing 136.6 Est GFR ( Amer) 122.7 Est GFR (Non-Af Amer) 105.9 BUN/Creatinine Ratio 24.4 H Glucose 94 Osmolality Calcium 8.3 L Magnesium 1.7 B-Natriuretic Peptide 780 H Urine Osmolality Ur Random Sodium 09/26/21 09/26/21 09/26/21 08:26 09:00 09:00 WBC RBC Hgb Hct MCV MCH MCHC RDW Std Deviation RDW Coeff of José Miguel Plt Count MPV Immature Gran % (Auto) Neut % (Auto) Lymph % (Auto) [place] % (Auto) Eos % (Auto) Baso % (Auto) Neut # (Auto) Lymph # (Auto) [place] # (Auto) Eos # (Auto) Baso # (Auto) Immature Gran # (Auto) Sodium Potassium Chloride Carbon Dioxide Anion Gap BUN Creatinine Est Cr Clr Drug Dosing Est GFR ( Amer) Est GFR (Non-Af Amer) BUN/Creatinine Ratio Glucose Osmolality 268 L Calcium Magnesium B-Natriuretic Peptide Urine Osmolality 618 Ur Random Sodium 12 PG Care Time/CCT Total # of Minutes Spent Total Time Spent with Patient: Total time spent is greater than 50% in coordination of care (as documented) at patient's floor/unit and/or counseling patient: Coding Level of Care Code 78871 Subseq Hosp Care Lvl [address] elevation (STEMI) myocardial infarction I21.3 Involved coronary artery: unspecified coronary artery Acute right-sided congestive heart failure I50.811 Junctional rhythm I49.8 Back pain M54.9; G89.29 Back pain laterality: unspecified Back pain location: back pain in unspecified location Chronicity: chronic COPD (chronic obstructive pulmonary disease) J44.9 Depression F32.9 Acute hyponatremia E87.1 Tobacco dependence F17.200 (1) Back pain Back pain laterality: unspecified Back pain location: back pain in unspecified location Chronicity: chronic Qualified Code(s): M54.9 - Dorsalgia, unspecified; G89.29 - Other chronic pain (2) ST elevation (STEMI) myocardial infarction Involved coronary artery: unspecified coronary artery Qualified Code(s): I21. 3 - ST elevation (STEMI) myocardial infarction of unspecified site
[2021-09-26] MEDS: HYDROCODONE/ACETAMINOPHEN 7.5/325MG TAB PO PRN (15:21)
--- NOTE | 2021-09-26 17:32 | Cardiology Progress Note ---
Date of Service September 26, 2021 Assessment & Plan (1) ST elevation (STEMI) myocardial infarction: (2) CAD (coronary artery disease): (3) Mitral regurgitation: (4) Smoker: Plan 1. ST-elevation myocardial infarction: Stable. No definite electrical or mechanical complication. No recurrent symptoms of angina. Some pulmonary vascular congestion which was treated with Lasix this morning. Beta-dominick is being held due to her bradycardia and junctional rhythm. Doing well on irving nopril, dual anti-platelet therapy and high-dose atorvastatin. 2. Coronary disease: Some nonobstructive disease involving the LAD. Continue high-dose atorvastatin and lisinopril. Will wait for an opportunity to reinitiate metoprolol. 3. Mitral regurgitation: Mild to moderate. 4. Right ventricular failure: Will see how she response to some diuresis today. Hemodynamically she appears fairly stable. 5. Tobacco abuse: Counseled regarding the need to stop 6. Dyspnea on exertion: She was dyspneic yesterday. She is known to have some underlying lung disease but some of her symptoms likely related to pulmonary vascular congestion. Will administer Lasix today and consider another dose tomorrow. 7. Junctional rhythm: Occasionally she does appear to have a sinus rhythm. The etiology of this junctional rhythm is unclear. I did discuss the option of an EP study with the patient to further confirm the arrhythmia. Whether a pacemaker would be advisable would depend on the findings of that study. This afternoon she appears to have a normal sinus rhythm. Admission and Anticipated Discharge Date Admission Date: September 23, 2021 Subjective This afternoon the patient continued to have symptoms of back and leg pain. This did not appear to be severe. She had some dyspnea with ambulation yesterday. She denies dizziness or lightheadedness. No sense of palpitation. Review of Systems Review of Systems: Per HPI Physical Exam Physical Exam: She is alert and oriented x3. Mood affect appear normal. She answered all questions appropriately. HEENT: Sclerae are anicteric. Pupils are equal and reactive to light and accommodation. Extraocular movements were intact. Neuro: Cranial nerves intact Lungs: Lungs are clear to auscultation bilaterally. There are no rales wheezes or rhonchi. She has normal respiratory effort without use of accessory muscles. There is normal pulmonary excursion. Cardiac: The rhythm was regular. S1 and S2 were normal. There are no murmurs on examination. The PMI was not markedly displaced on palpation. Extremities: Patient has bilateral radial pulses that are equal in intensity. There is no evidence cyanosis or clubbing. There was no evidence of significant peripheral edema bilaterally. Evaluation of the right femoral area did not reveal any evidence of hematoma. Normal femoral pulse. No bruit on auscultation. Skin: There are no rashes noted on examination today. Results & Data ([facility]) Vital Signs (Past 12 Hours) Vital Signs Temp Pulse Pulse Resp BP Pulse Ox O2 Del Method 09/26/21 15:01 36.7 C 60 18 105/60 97 Room Air 09/26/21 14:49 65 09/26/21 13:03 92/55 L 09/26/21 12:13 37.0 C 69 20 89/47 L 94 Room Air 09/26/21 10:05 Room Air 09/26/21 08:19 36.9 C 61 18 107/53 L 97 Room Air 09/26/21 07:18 58 L Laboratory Results Abnormal Lab Results 09/23/21 09/25/21 09/25/21 14:12 08:37 08:37 WBC 9.41 RBC 3.63 L Hgb 11.0 L Hct 31.9 L MCV 87.9 MCH 30.3 MCHC 34.5 RDW Std Deviation 42.5 RDW Coeff of José Miguel 13.3 Plt Count 252 MPV 10.4 Immature Gran % (Auto) 0.3 Neut % (Auto) 64.4 Lymph % (Auto) 21.9 [place] % (Auto) 11.7 Eos % (Auto) 1.1 Baso % (Auto) 0.6 Neut # (Auto) 6.06 Lymph # (Auto) 2.06 [place] # (Auto) 1.10 H Eos # (Auto) 0.10 Baso # (Auto) 0.06 Immature Gran # (Auto) 0.03 H Activ Coag Time Kaolin 213 H Sodium 127 L Potassium 4.1 Chloride 97 L Carbon Dioxide 24 Anion Gap 6 BUN 13 Creatinine 0.42 L Est Cr Clr Drug Dosing 146.3 Est GFR ( Amer) 125.5 Est GFR (Non-Af Amer) 108.3 BUN/Creatinine Ratio 31.0 H Glucose 128 H Calcium 8.1 L Magnesium 1.7 Troponin I High Sens 6336.9 H* D Diagnostic Findings Chest x-ray obtained on admission did not reveal any acute cardiopulmonary process. Coronary angiography performed yesterday revealed 100% occlusion of the right coronary artery. Right dominant coronary system. Nonobstructive disease in the LAD. Ejection fraction estimated at 40% with inferior wall hypokinesis. PG Care Time/CCT Total # of Minutes Spent Total Time Spent with Patient: Total time spent is greater than 50% in coordination of care (as documented) at patient's floor/unit and/or counseling patient: Coding Level of Care Code 24367 Subseq Hosp Care Lvl [address] elevation (STEMI) myocardial infarction I21.3 Involved coronary artery: unspecified coronary artery CAD (coronary artery disease) I25.10 Mitral regurgitation I34.0 Smoker F17.200 (1) ST elevation (STEMI) myocardial infarction Involved coronary artery: unspecified coronary artery Qualified Code(s): I21.3 - ST elevation (STEMI) myocardial infarction of unspecified site
[2021-09-26] MEDS: ATORVASTATIN 40 MG TAB PO SCH (20:08)
[2021-09-26] MEDS: MELATONIN 3 MG TAB PO PRN (21:10)
[2021-09-27] MEDS ORDERED: COSYNTROPIN 1 MCG in SYRINGE 0 ML IV ONE (08:00)
[2021-09-27] MEDS: NICOTINE 7 MG/24 HR TDSY TD SCH (08:12)
[2021-09-27] MEDS: LIDOCAINE 5% 1 PATCH TD SCH ×2 (08:13→08:15)
[2021-09-27] MEDS: CLOPIDOGREL BISULFATE 75 MG TAB PO SCH (08:13)
[2021-09-27] MEDS: PANTOprazole 40 MG TAB PO SCH ×2 (08:14→20:05)
[2021-09-27] MEDS: DULoxetine HCL 30 MG CAP PO SCH (08:14)
[2021-09-27] MEDS: ASPIRIN 81 MG ECTAB PO SCH (08:14)
[2021-09-27] MEDS: FLUTICASONE FUROATE 100MCG 14 PUFFS/INHALER INH SCH (08:15)
[2021-09-27] MEDS: UMECLIDINIUM/VILANTEROL 62.5/25MCG 7 PUFFS/INHALER INH SCH (08:15)
[2021-09-27] MEDS: MoRPHine SULFATE 2 MG/ML CARP IV PRN ×2 (08:32→13:51)
[2021-09-27 09:58] LABS: BUN Creatinine Ratio 22.6 (10-20); Calcium 8.7 mg/dl (8.5-10.1); Est GFR (African American) 116.3 ml/min; Est GFR (Non-African American) 100.3 ml/min; Potassium 4.3 mmol/L (3.5-5.1)
--- NOTE | 2021-09-27 16:47 | Cardiology Progress Note ---
Date of Service September 27, 2021 Assessment & Plan (1) ST elevation (STEMI) myocardial infarction: (2) CAD (coronary artery disease): (3) Mitral regurgitation: (4) Smoker: Plan 1. ST-elevation myocardial infarction: Stable. No mechanical complications. No recurrent angina. Some pulmonary vascular congestion. Electrical abnormalities appear to have improved. No sustained ventricular arrhythmias. 2. Coronary disease: Some nonobstructive disease involving the LAD. Continue high-dose atorvastatin and lisinopril. Will wait for an opportunity to reinitiate metoprolol or possibly low-dose carvedilol.. 3. Mitral regurgitation: Mild to moderate. 4. Right ventricular failure: Hemodynamically stable. Some lower pressures late yesterday evening. Unclear this is related to mild diuresis. 5. Tobacco abuse: She has indicated that she will stop smoking. 6. Dyspnea on exertion: Improved. Perhaps some congestion on exam. Think tomorrow morning we can administer another dose of Lasix. 7. Junctional rhythm: This is also improved. She clearly has a sinus rhythm this morning. Were some periods of junctional activity overnight. No symptoms with this arrhythmia. The only concern is that this is a relative contraindication to beta-blockade. Hopefully as her condition improves we can start some low-dose beta-dominick. I think she is likely stable for discharge tomorrow. We can assess her volume status and conduction in the morning. Admission and Anticipated Discharge Date Admission Date: September 23, 2021 Subjective This afternoon the patient claimed he feeling better. She was ambulatory around her room. Some dyspnea at times but certainly improved. No sense of palpitation. No dizziness. No recurrent chest pain. Continued back and leg pain. Review of Systems Review of Systems: Per HPI Physical Exam Physical Exam: She is alert and oriented x3. Mood affect appear normal. She answered all questions appropriately. HEENT: Sclerae are anicteric. Pupils are equal and reactive to light and accommodation. Extraocular movements were intact. Neuro: Cranial nerves intact Lungs: Lungs are clear to auscultation bilaterally. There are no rales wheezes or rhonchi. She has normal respiratory effort without use of accessory muscles. There is normal pulmonary excursion. Cardiac: The rhythm was regular. S1 and S2 were normal. There are no murmurs on examination. The PMI was not markedly displaced on palpation. Skin: There are no rashes noted on examination today. Results & Data ([facility]) Vital Signs (Past 12 Hours) Vital Signs Temp Pulse Resp BP Pulse Ox O2 Del Method 09/27/21 15:11 37.0 C 62 22 108/54 L 95 Room Air 09/27/21 11:40 37.0 C 56 L 20 119/59 L 95 Room Air 09/27/21 08:18 36.9 C 58 L 20 114/60 92 Room Air 09/27/21 06:22 115/63 Laboratory Results Abnormal Lab Results 09/27/21 09/27/21 09:11 09:11 Sodium 131 L Potassium 4.3 Chloride 98 Carbon Dioxide 29 Anion Gap 4 BUN 12 Creatinine 0.53 L Est Cr Clr Drug Dosing 116.0 Est GFR ( Amer) 116.3 Est GFR (Non-Af Amer) 100.3 BUN/Creatinine Ratio 22.6 H Glucose 103 H Calcium 8.7 Cortisol Response Diagnostic Findings Chest x-ray obtained on admission did not reveal any acute cardiopulmonary process. Coronary angiography performed yesterday revealed 100% occlusion of the right coronary artery. Right dominant coronary system. Nonobstructive disease in the LAD. Ejection fraction estimated at 40% with inferior wall hypokinesis. Echocardiogram performed 09/24/2021: Normal LV systolic function with ejection fraction of 50-55%. Stage II diastolic dysfunction. Moderate hypokinesis of the inferior wall from the base to mid ventricle. Mild biatrial dilation PG Care Time/CCT Total # of Minutes Spent Total Time Spent with Patient: Total time spent is greater than 50% in coordination of care (as documented) at patient's floor/unit and/or counseling patient: Coding Level of Care Code 53057 Subseq Hosp Care Lvl [address] elevation (STEMI) myocardial infarction I21.3 Involved coronary artery: unspecified coronary artery CAD (coronary artery disease) I25.10 Mitral regurgitation I34.0 Smoker F17.200 (1) ST elevation (STEMI) myocardial infarction Involved coronary artery: unspecified coronary artery Qualified Code(s): I21.3 - ST elevation (STEMI) myocardial infarction of unspecified site
[2021-09-27] MEDS: buprenorphine HCL 8 MG SUBL SL SCH (17:43)
[2021-09-27] MEDS: NYSTATIN SUSP 500,000 U/5 ML UDC PO SCH ×2 (17:43→20:04)
--- NOTE | 2021-09-27 20:02 | Hospitalist Progress Note ---
Date of Service September 27, 2021 Assessment & Plan (1) ST elevation (STEMI) myocardial infarction: Plan: STEMI 2nd to occluded proximal RCA. s/p CARLIE. Peak troponin 12,500. Additional cath findings - LAD 50% stenosis - midsegment LCX - minimal irregularities Remains on ASA/Plavix; metoprolol 25mg BID still on hold due to recent junctional rhythm; lisinopril 5mg on hold due to low-normal BPs. Continue Atorvastatin 40mg daily. Despite back pain her troponins downtrended nicely, and no further ischemia is suspected. (2) Acute right-sided congestive heart failure: Plan: Post-UT echo with preserved EF but RV dysfunction. RV dysfunction likely due to right-sided UT. Appears compensated today. BMP in am. (3) Junctional rhythm: Plan: EKGs and telemetry have shown intermittent junctional rhythm with no discernible P waves seen on tele/EKG. Dr Freedman has evaluated, and was to perform EP study today, but this was not pursued as her rhythm has been predominantly sinus this am/overnight. Cont to HOLD beta dominick. TSH wnl. (4) Back pain: Plan: Chronic. Multiple lumbar spine surgeries both in [place] and in [place]. MRI thoracic spine -- no evidence of thoracic cord compression. Normal thoracic cord signal and caliber. Multilevel degenerative disc disease and facet arthrosis within the thoracic spine. No severe stenosis. Mild multilevel central canal neural foraminal stenosis. MRI of the lumbar spine -- extensive postoperative findings within the spine. Multilevel posterior decompression and discectomy with T12-L5 bilateral pedicle screw fusion. No lumbar spine fracture. No significant central stenosis within the lumbar spine. Neural foramen suboptimally assessed due to susceptibility artifact from hardware. Moderate multilevel narrowing. After lengthy discussion placing back on subutex 12mg daily. If she wanted to change from subutex would ask pain management to see about alternatives. (5) COPD (chronic obstructive pulmonary disease): Plan: Continue albuterol prn Continue Trelegy or equivalent Patient should follow-up with pulmonary for PFTs and ongoing treatment Tobacco cessation needed (6) Depression: Plan: Continue Duloxetine (Cymbalta) 90mg daily Consider increase to 120mg daily Outpatient counseling (7) Acute hyponatremia: Plan: Low urine Na c/w solute deficiency TSH wnl Adrenal insufficiency ruled out -- stim test wnl Na improved today BMP am (8) Tobacco dependence: Plan: cessation needed nicoderm patch Plan DVT proph - ambulation progressing Admission and Anticipated Discharge Date Admission Date: September 23, 2021 Subjective "I feel better today" still some ongoing COWART but no dyspnea at rest; no orthopnea she does c/o sweats, restlessness, back pain confirms that her subutex dose is 12mg/day and just had it filled by [facility] in late August has been on current dose for several months managed by [facility] I called and confirmed with [facility] that indeed patient is on the above dose we discussed options for pain management - she wishes to resume subutex her only complaint is that it is $200/month and this is financially a burden no chest pain back pain persists Review of Systems Review of Systems: gen - eating well cv - no cp, no orthopnea pulm - mild cough; mild COWART GI - no abd pain; no diarrhea Physical Exam Physical Exam: gen - looks better today overall; a little restless mouth - MMM neck - no obvious JVD heart - RRR, s1 s2, no murmur lungs - mild end-exp wheezes b/l, no rales abd - soft NT ND BS+ ext - no edema, pulses 2+ b/l Results & Data Results & Data ([facility]) Vital Signs (Past 12 Hours) Vital Signs Temp Pulse Resp BP Pulse Ox O2 Del Method 09/27/21 19:30 36.6 C 73 16 104/58 L 92 Room Air 09/27/21 15:11 37.0 C 62 22 108/54 L 95 Room Air 09/27/21 11:40 37.0 C 56 L 20 119/59 L 95 Room Air 09/27/21 08:18 36.9 C 58 L 20 114/60 92 Room Air Laboratory Results Laboratory Results - last 24 hr 09/27/21 09/27/21 09:11 09:11 Sodium 131 L Potassium 4.3 Chloride 98 Carbon Dioxide 29 Anion Gap 4 BUN 12 Creatinine 0.53 L Est Cr Clr Drug Dosing 116.0 Est GFR ( Amer) 116.3 Est GFR (Non-Af Amer) 100.3 BUN/Creatinine Ratio 22.6 H Glucose 103 H Calcium 8.7 Cortisol Response PG Care Time/CCT Total # of Minutes Spent Total Time Spent with Patient: Total time spent is greater than 50% in coordination of care (as documented) at patient's floor/unit and/or counseling patient: Coding Level of Care Code 98255 Subseq Hosp Care Lvl [address] elevation (STEMI) myocardial infarction I21.3 Involved coronary artery: unspecified coronary artery Acute right-sided congestive heart failure I50.811 Junctional rhythm I49.8 Back pain M54.9; G89.29 Back pain laterality: unspecified Back pain location: back pain in unspecified location Chronicity: chronic COPD (chronic obstructive pulmonary disease) J44.9 Depression F32.9 Acute hyponatremia E87.1 Tobacco dependence F17.200 (1) Back pain Back pain laterality: unspecified Back pain location: back pain in unspecified location Chronicity: chronic Qualified Code(s): M54.9 - Dorsalgia, unspecified; G89.29 - Other chronic pain (2) ST elevation (STEMI) myocardial infarction Involved coronary artery: unspecified coronary artery Qualified Code(s): I21.3 - ST elevation (STEMI) myocardial infarction of unspecified site
[2021-09-27] MEDS: ATORVASTATIN 40 MG TAB PO SCH (20:03)
[2021-09-27] MEDS: MELATONIN 3 MG TAB PO PRN (21:59)
[2021-09-28 06:49] LABS: BUN Creatinine Ratio 24.5 (10-20); Calcium 8.2 mg/dl (8.5-10.1); Creatinine Clr Calc Pharmacy 125.4 ml/min; Est GFR (African American) 119.3 ml/min
[2021-09-28] MEDS: UMECLIDINIUM/VILANTEROL 62.5/25MCG 7 PUFFS/INHALER INH SCH (08:38)
[2021-09-28] MEDS: FLUTICASONE FUROATE 100MCG 14 PUFFS/INHALER INH SCH (08:38)
[2021-09-28] MEDS: PANTOprazole 40 MG TAB PO SCH (08:38)
[2021-09-28] MEDS: DULoxetine HCL 30 MG CAP PO SCH (08:38)
[2021-09-28] MEDS: NYSTATIN SUSP 500,000 U/5 ML UDC PO SCH ×3 (08:38→16:52)
[2021-09-28] MEDS: ASPIRIN 81 MG ECTAB PO SCH (08:38)
[2021-09-28] MEDS: CLOPIDOGREL BISULFATE 75 MG TAB PO SCH (08:38)
[2021-09-28] MEDS: LIDOCAINE 5% 1 PATCH TD SCH ×2 (08:39)
[2021-09-28] MEDS: NICOTINE 7 MG/24 HR TDSY TD SCH (08:39)
[2021-09-28] MEDS: buprenorphine HCL 8 MG SUBL SL SCH (08:43)
[2021-09-28] MEDS ORDERED: FUROSEMIDE INJ 20 MG/2 ML VIAL IV ONE (09:08)
[2021-09-28] MEDS ORDERED: METOPROLOL TARTRATE 25 MG TAB PO SCH (09:15)
--- NOTE | 2021-09-28 10:32 | Cardiology Progress Note ---
Date of Service September 28, 2021 Assessment & Plan (1) ST elevation (STEMI) myocardial infarction: (2) CAD (coronary artery disease): (3) Mitral regurgitation: (4) Smoker: Plan 1. ST-elevation myocardial infarction: Stable. No mechanical complications. No recurrent angina. Some pulmonary vascular congestion. Electrical abnormalities appear to have improved. No sustained ventricular arrhythmias. 2. Coronary disease: Some nonobstructive disease involving the LAD. Continue high-dose atorvastatin and lisinopril. Her heart rates are improved I think we have an opportunity to restart metoprolol tartrate at a lower dose. 3. Mitral regurgitation: Mild to moderate. 4. Right ventricular failure: She is doing well hemodynamically. We will see how she tolerates some mild diuresis beta-blockade. 5. Tobacco abuse: She has indicated that she will stop smoking. 6. Dyspnea on exertion: Improved. Perhaps some congestion on exam. Will administer some Lasix this morning. 7. Junctional rhythm: Resolved. In fact, her heart rates are somewhat higher today. We will restart metoprolol. She appears to be stable for discharge. I would discharge her on metoprolol tartrate 12.5 mg twice daily. Dual anti-platelet therapy. High-dose atorvastatin and her current dose of lisinopril. She would like to follow-up in [place] and I will send a message to the clinic order to have this arranged. Admission and Anticipated Discharge Date Admission Date: September 23, 2021 Subjective This morning the patient feels well. She was anxious for discharge. She reports walking around in having some mild dyspnea but improve earlier in her admission. No dizziness or lightheadedness. Still some occasional cramping around the back and ribs. Review of Systems Review of Systems: Per HPI Physical Exam Physical Exam: She is alert and oriented x3. Mood affect appear normal. She answered all questions appropriately. HEENT: Sclerae are anicteric. Pupils are equal and reactive to light and accommodation. Extraocular movements were intact. Neuro: Cranial nerves intact Lungs: Lungs are clear with occasional crackle in the left base. No expiratory wheezing.. She has normal respiratory effort without use of accessory muscles. There is normal pulmonary excursion. Cardiac: The rhythm was regular. S1 and S2 were normal. There are no murmurs on examination. The PMI was not markedly displaced on palpation. Skin: There are no rashes noted on examination today. Results & Data ([facility]) Vital Signs (Past 12 Hours) Vital Signs Temp Pulse Pulse Resp BP Pulse Ox O2 Del Method 09/28/21 07:18 Room Air 09/28/21 07:18 90 09/28/21 07:02 36.8 C 81 18 122/81 90 Room Air 09/28/21 03:28 36.6 C 60 16 112/65 91 Room Air 09/27/21 23:50 36.8 C 60 16 111/59 L 92 Room Air 09/27/21 23:30 62 Laboratory Results Abnormal Lab Results 09/27/21 09/28/21 09:11 05:58 Sodium 130 L Potassium 4.0 Chloride 98 Carbon Dioxide 27 Anion Gap 5 BUN 12 Creatinine 0.49 L Est Cr Clr Drug Dosing 125.4 Est GFR ( Amer) 119.3 Est GFR (Non-Af Amer) 103.0 BUN/Creatinine Ratio 24.5 H Glucose 93 Calcium 8.2 L Cortisol Response Diagnostic Findings Chest x-ray obtained on admission did not reveal any acute cardiopulmonary process. Coronary angiography performed yesterday revealed 100% occlusion of the right coronary artery. Right dominant coronary system. Nonobstructive disease in the LAD. Ejection fraction estimated at 40% with inferior wall hypokinesis. Echocardiogram performed 09/24/2021: Normal LV systolic function with ejection fraction of 50-55%. Stage II diastolic dysfunction. Moderate hypokinesis of the inferior wall from the base to mid ventricle. Mild biatrial dilation PG Care Time/CCT Total # of Minutes Spent Total Time Spent with Patient: Total time spent is greater than 50% in coordination of care (as documented) at patient's floor/unit and/or counseling patient: Coding Level of Care Code 44164 Subseq Hosp Care Lvl [address] elevation (STEMI) myocardial infarction I21.3 Involved coronary artery: unspecified coronary artery CAD (coronary artery disease) I25.10 Mitral regurgitation I34.0 Smoker F17.200 (1) ST elevation (STEMI) myocardial infarction Involved coronary artery: unspecified coronary artery Qualified Code(s): I21.3 - ST elevation (STEMI) myocardial infarction of unspecified site
[2021-09-28] MEDS: HYDROCODONE/ACETAMINOPHEN 7.5/325MG TAB PO PRN (12:50)
--- NOTE | 2021-09-28 18:04 | Discharge Summary ---
Date of Service date of admission - September 23, 2021 date of discharge - September 28, 2021 Admission HPI Per Admitting Provider 66 YOF with medical history of: Smoker, COPD, Chronic back pain, anxiety, failed cervical fusion. Patient comes to the EMD for complaints of upper back pain. In the EMD the patient had routine labs completed, MRI of her back. Upon return from MRI patient noted to have increase in HScTNI [id number] an ECG was then obtained with reported STEMI of inferior leads. Heart alert was called and patient was taken tot he lab head. Patient was interviewed in the ICU post cardiac cath procedure. She was loaded with ASA and Plavix in the EMD and Integrilin thought the procedure. 3 CARLIE to the RCA with resulting PATRICIA flow III and small dissection proximal. LVgram reported as EF 40% with inferior hypokinesis. ECHO in AM. Patient to ICU overnight. Continue to trend HScTNI, ECG, initiate BB likely. Continue with ASA/Plavix. Patient symptoms reportedly started about 1 month ago. Symptoms were upper back pain with radiation around to left chest. This occurred while she was moving into a new apartment lifting some boxes and going up in the elevator. She went to her PCP on Friday as her pain was both sides around the back into her chest. She was give prednisone. She states that even today that her pain did not change from last week until this week. Denies She does endorse some nausea and vomiting but thought that this was related to the Prednisone. Patient had radial and femoral access on her right side. For her lower back pain she has partial T12 Laminectomy with L1-L4 fusion and discectomy. She states that she is still waiting to get her back fixed. See MRI of Thoracic and Lumbar below. She was given Prednisone with taper from 40mg starting on . She would be 20mg and then 10mg on the next proceeding days. COVID test on admission is: NEGATIVE Principal Diagnosis 1. STEMI 2nd RCA occlusion 2. Acute right-sided CHF 3. Chronic lumbar back pain on Subutex 4. Tobacco dependence 5. COPD with need for home O2 Discharge Exam gen - NAD, comfortable mouth - MMM neck - no obvious JVD heart - RRR, s1 s2, no murmur lungs - mild end-exp wheezes b/l, no rales abd - soft NT ND BS+ ext - no edema, pulses 2+ b/l neuro - strength 5/5 x b/l legs Discharge Data Allergies Allergy/AdvReac Type Severity Reaction Status Date / Time buprenorphine [From Suboxone] Allergy Mild itching Verified 06/25/21 16:00 naloxone [From Suboxone] Allergy Mild itching Verified 06/25/21 16:00 Consultations [employer] [facility] Procedures Performed Operation Date: 09/23/21 13:10 Actual Procedures p Cineradiography w/Routine Exam - MD zakia Anderson Aspiration/PCI w/CARLIE for Stemi - MD anna marie Anderson IVUS Coronary Single Vessel - MD anna marie Anderson Placement Art Occlusive Device - MD anna marie Anderson Ultrasound Vascular Access - MD anna marie Anderson Cath, Left with Cors and Vent - Ochoa Stringer MD Coronary Anatomy Dominant: Right LAD (% Stenosis): Mid (50) Circumflex (% Stenosis): Normal RCA (% Stenosis): Proximal (100) --> s/p CARLIE to RCA occlusion Echocardiogram - * EF 50-55% * grade 2 diastolic dysfunction * moderate hypokinesis of inferior wall * borderline right ventricular enlargement * right ventricular systolic function mildly reduced * left & right atria mildly dilated * mild to moderate mitral regurgitation * right ventricular systolic pressure is normal * inferior vena cava moderately dilated Ordered Studies Lumbar Spine MRI 09/23/21 10:03 MRI OF THE LUMBAR SPINE WITH AND WITHOUT CONTRAST CLINICAL HISTORY: Severe back pain. Evaluate for cord compression. COMPARISON STUDY: Lumbar spine MRI December 08, 2013. TECHNIQUE: Utilizing a 1.5 Cinda magnet and dedicated coil, multiplanar, multiecho imaging of the lumbar spine was performed before and after uneventful IV administration of 6.5 mL of Gadavist. FINDINGS: For purposes of numbering on this exam, the L5-S1 disc space is assigned to axia l image 36 of 41. There is straightening of the normal lumbar lordosis. Vertebral body heights are maintained. There is no compression fracture. Evaluation is compromised by susceptibility artifact from surgical hardware. Bilateral pedicle screw fusion from T12 through L5 is noted with multilevel discectomy. No intracanalicular mass or fluid collection. Paravertebral soft tissues are grossly unremarkable. Conus terminates at approximately the upper L1 level. Left renal cyst is incidentally noted. L1-2: The central canal is patent. Neural foramen are also patent although partially obscured due to susceptibility artifact. L2-3: Central canal is patent. Neural foramen are grossly patent. L3-4: Central canal is patent. Neural foramen are grossly patent. L4-5: Central canal and left neural foramen are patent. Mild narrowing of the right neural foramen. L5-S1: Disc bulge is present. There is minimal central canal narrowing. Neural foramen are suboptimally assessed on this exam. Moderate left and mild right neural foraminal stenosis is suspected. IMPRESSION: 1. Extensive postoperative findings within the spine, as described above. Multilevel posterior decompression and discectomy with T12-L5 bilateral pedicle screw fusion. 2. No lumbar spine fracture. No significant central stenosis within the lumbar spine. 3. Neural foramen suboptimally assessed due to susceptibility artifact from hardware. Moderate multilevel narrowing, as described above. ACT 112: Negative or not required by law. Electronically signed by: Panchito Feldman M.D. 09/23/2021 1:23 PM Thoracic Spine MRI 09/23/21 10:03 MRI OF THE THORACIC SPINE WITH AND WITHOUT CONTRAST CLINICAL HISTORY: Severe back pain. Evaluate for cord compression. COMPARISON: Thoracic spine MRI May 17, 2010. TECHNIQUE: Utilizing a 1.5 Cinda magnet and dedicated coil, multiplanar, multiecho imaging of the thoracic spine was performed before and after the intravenous administration of 6.5 cc. FINDINGS: Exam is mildly compromised by motion artifact. No acute thoracic spine fracture is noted. There is no suspicious marrow replacement. Thoracic cord signal and caliber are normal. There is no intracanalicular mass or fluid collection. No abnormal enhancement within the thoracic canal is noted. Discogenic changes are most pronounced at the T3-T4 level. Paravertebral soft tissues are unremarkable. Moderate multilevel disc space narrowing is noted. There are multiple small disc protrusions. There is mild multilevel central canal stenosis within the thoracic spine. Mild multilevel neural foraminal stenosis is also present. Postoperative findings within the cervical spine are partially imaged. Thoracolumbar spine fusion is better depicted on the lumbar spine CT which will be reported separately. IMPRESSION: 1. Exam mildly compromised by motion artifact. No thoracic cord compression. Normal thoracic cord signal and caliber. 2. Multilevel degenerative disc disease and facet arthrosis within the thoracic spine. No severe stenosis. Mild multilevel central canal or neural foraminal stenosis. ACT 112: Negative or not required by law. Electronically signed by: Panchito Feldman M.D. 09/23/2021 1:11 PM Chest X-Ray 09/23/21 10:04 XR chest 1V portable CLINICAL HISTORY: Back and chest pain. COMPARISON STUDY: Chest radiograph October 17, 2020. FINDINGS: Lung volumes are normal. Lungs are clear. There is no pneumothorax or pleural effusion. Cardiac size is normal. Mediastinal contours are normal. There is no evidence for pulmonary edema. Postoperative findings within the spine are incidentally noted. IMPRESSION: No acute cardiopulmonary findings. ACT 112: Negative or not required by law. Electronically signed by: Panchito Feldman M.D. 09/23/2021 11:02 AM Hospital Course (1) ST elevation (STEMI) myocardial infarction: Patient presented with acute/chronic back pain. The acute back pain was in her upper back with some radiation of the pain to the upper chest. Chronically her pain is typically over the lumbar spine. Initial EKG showed ST segment elevation in the inferior leads c/w STEMI. She was taken emergently to the lab head where the proximal RCA was 100% occluded. s/p CARLIE to the RCA. Additional cath findings - LAD 50% stenosis - midsegment LCX - minimal irregularities Post-cath peak high sensitivity troponin was 12,500. She was admitted to the ICU for 24 hours following her STEMI, then transitioned to the floor. a1c She was placed on asa, plavix and statin. Lipid profile showed LDL of 72, and HDL of 40. She had periods of junctional rhythm and for much of the stay her beta dominick was held. ADE was also held due to low-normal BPs. Her stay was complicated by acute right-sided CHF requiring diuresis. Throughout the hospitalization she continued to have complaints of back pain. Despite such her HS troponins continued to downtrend. Troponin on day of discharge was 3379. This was reassuring that she had no ongoing ischemia. Smoking cessation was strongly advised. She will need close f/u with [facility] shortly after discharge. (2) Acute right-sided congestive heart failure: Post-SC echo with preserved EF but RV dysfunction. RV dysfunction was likely due to right-sided SC. She required IV diuresis. At discharge she appeared compensated. The following were recommended at discharge - * lasix 20mg to be used PRN for weight gain * daily weights * fluid/salt restriction * lisinopril 2.5mg daily * metoprolol tartrate 12.5mg BID (was resumed as junctional rhythm had resolved) (3) Junctional rhythm: EKGs and telemetry showed intermittent junctional rhythm with no discernible P waves seen on tele/EKG. Dr Kuldeep Freedman from [facility] was planning for EP study but in the 24 hours leading up to discharge she converted to NSR and stayed in such. EP study was deferred. She was placed back on low-dose metoprolol 12.5mg BID at discharge. (4) Back pain: Chronic. Multiple lumbar spine surgeries both in [place] and in [place]. Patient underwent MRI of the thoracic & lumbar spine while here --- MRI thoracic spine -- no evidence of thoracic cord compression. Normal thoracic cord signal and caliber. Multilevel degenerative disc disease and facet arthrosis within the thoracic spine. No severe stenosis. Mild multilevel central canal neural foraminal stenosis. MRI of the lumbar spine -- extensive postoperative findings within the spine. Multilevel posterior decompression and discectomy with T12-L5 bilateral pedicle screw fusion. No lumbar spine fracture. No significant central stenosis within the lumbar spine. Neural foramen suboptimally assessed due to susceptibility artifact from hardware. Moderate multilevel narrowing. We confirmed with the patient's outside pharmacy ([facility]) and her addition specialist Dr Fei Akins that she is indeed on subutex 12mg daily. This was continued at discharge and she will f/u with Dr Akins for ongoing care. The patient states she was to have a repeat spine surgery in [place] in 2020 but this deferred as she moved to [place] to care for her mother. (5) COPD (chronic obstructive pulmonary disease): Continue albuterol prn Continue Trelegy or equivalent Patient should follow-up with pulmonary for PFTs and ongoing treatment Tobacco cessation needed suleiman ambulatory 2-step O2 test confirmed the need for ongoing home O2 use with ambulation/activity only --- 2 liters (6) Depression: Continue Duloxetine 90mg daily Outpatient counseling (7) Acute hyponatremia: Low urine Na c/w solute deficiency TSH wnl Adrenal insufficiency ruled out -- cosyntropin stimulation test was wnl Discharge Na level was 130 She will need follow-up for the sodium level with repeat BMP after discharge (8) Tobacco dependence: cessation needed nicoderm patch used while here, and prescribed at discharge (9) Dependence on supplemental oxygen when ambulatinnd COPD. 2 liters o2 via nasal cannula with ambulation only. Smoking cessation needed suleiman. (10) Candidiasis of mouth and esophagus: finish course of nystatin solution QID. thrush largely resolved by discharge. (11) Prediabetes: hemoglobin a1c was 6.1% f/u with PCP for this Total Time Total Time Spent Total Time Spent (In Minutes): 60 Discharge Plan Discharge Items Patient Disposition: Home - Self-Care Reason For Visit: BACK PAIN Discharge Diagnosis: 1. acute myocardial infarction (heart attack) 2. placement of stent in blocked coronary artery that caused your heart attack 3. chronic back pain 4. tobacco use 5. COPD with need for home oxygen, 2 liters with activity/ambulation Activity: As commented below Activity Comment: no strenuous activities until cleared by cardiology Lifting: No more than 10 pounds Bathing: No limitations Sexual Activity: Wait until after follow-up appointment Exercise/Sports: Wait until after follow-up appointment Driving/Machine Use: No limitations Non-emergency contact: Primary Care Provider, [facility] Call non-emergency contact if: you have any medication questions, your symptoms worsen, your pain is not controlled, your pain is worsening, your pain is unusual for you, your pain is concerning for you and you have a fever Follow-up/Referrals: Carson Baldwin CRNP [Primary Care Provider] - 10/04/21 2:00 pm (5-7 days ) Kuldeep Freedman MD [Physician] - 10/04/21 3:30 pm (2 weeks - f/u from acute [facility] cardiology office please ) Diet: Heart Healthy [facility] Attending Provider Instructions: Ms Joseph, Wilder were hospitalized at [facility] after you presented with a heart attack. Your symptoms were atypical in that your worst symptom was back pain rather than chest pain. However, women with coronary artery disease often have very different symptoms than men. Women often do not have classic "chest pain." Rather, many women will have worsening/severe shortness of breath, pain in locations other than the chest (arms, shoulders, the back, etc), GI symptoms such as unusual nausea or vomiting, etc. During the heart catheterization a stent was placed to open the culprit blocked artery. After your heart catheterization you were started on various heart medications. You also needed diuretics ("water pills") to remove excess water that had built up in your lungs as a result of your heart attack. Recommendations - 1. Medications for your stent and coronary arteries - * otnz-beg-ldrrrlo aspirin 81mg once daily * clopidogrel 75mg once daily - prescription sent to your pharmacy for you 2. Medication for cholesterol - * atorvastatin 40mg once daily - prescription sent to your pharmacy for you 3. Additional heart medications - * metoprolol 12.5mg twice daily - prescription sent to your pharmacy for you * lisinopril 2.5mg once daily - prescription sent to your pharmacy for you 4. Medication for water weight gain/fluid - * furosemide 20mg each morning NEEDED for weight gain * only take this medication if you have fluid weight gain - see below * CHECK YOUR WEIGHT EVERY MORNING ON THE SAME SCALE * WHEN YOU WAKE UP EACH DAY BE SURE TO EMPTY YOUR BLADDER, THEN CHECK YOUR WEIGHT * IF YOU GAIN MORE THAN 2-3 POUNDS OVER A 1-2 DAY PERIOD THIS IS TYPICALLY A SIGN OF WATER WEIGHT GAIN FROM YOUR HEART DISEASE * IF YOU GAIN WEIGHT LIKE THIS PLEASE START THE FUROSEMIDE AND CALL YOUR HEART DOCTOR RIGHT AWAY * Be sure to write your weights down in a notebook to be able to track these over time 5. For yeast in mouth (due to your COPD inhalers) -- nystatin 5cc 4 times/day x 5 days. Swish and spit. 6. Oxygen - * you have been provided oxygen for home use * you do not need to use the oxygen when sleeping or sitting * use 2 liters of nasal cannula oxygen when you ambulate/walk, especially when you leave your home * DO NOT SMOKE/USE TOBACCO WITH OXYGEN THIS CAN LEAD TO A FIRE AND SERIOUS INJURY * I would recommend you purchase a "pulse oximeter" - this allows you to check your oxygen levels on your finger any time you want * Your oxygen levels should be at least 88% or higher any time you check your levels 7. I have prescribed nicoderm patches for you to help you quit smoking. Please use the patches for 1 month then discontinue. If you start smoking again then simply stop the nicoderm patches. It is so important to talk to your outpatient doctors about smoking cessation. Your heart disease will progress with ongoing tobacco usage. 8. We have prescribed a bottle of nitroglycerin tablets to you. This is for emergency purposes. Keep the bottle with you at all times. It has a shelf life of about 1 year. If you experience any of the symptoms you had on the day of your heart attack (you had severe upper back pain and upper chest pain) and/or severe shortness of breath, jaw pain, left arm pain - take the nitro tablets as directed and seek medical attention. Most people never have to use these but they will be available to you in the event of recurrent heart symptoms. 9. Dr Akins refilled your subutex for you. Follow-up - see separate section; additionally, please schedule a follow-up appointment with Dr Akins Return to [facility] if - * you have to use nitroglycerin tablets * you have worsening heart symptoms as discussed above * your oxygen levels at home are persistently less than 88% * you have worsening or severe shortness of breath * any other concerns It was our pleasure to care for you at [facility]! Please take it easy upon return home and continue to feel better, Dr Flaherty Addtl Psych Rn Provider Instructions: Post Heart Attack Instructions - Home Care: * Take your medications exactly as directed. Don't skip doses. * Remember that recovery after a heart attack takes time. Plan to rest for at lease 4-8 weeks while you recover. Then return to normal activity when your doctor says it's okay. * Ask your doctor about joining a heart rehabilitation program. * Tell your doctor if you are feeling depressed. Feelings of sadness are common after a heart attack, but it is important that you speak to someone if you are feeling overwhelmed by these feelings. * If you are having chest pain, call 911 for an ambulance. Do NOT drive yourself to the hospital. * Ask your family members to learn CPR. * Learn to take your own blood pressure and pulse. Keep a record of your results. Ask your doctor when you should seek emergency medical attention. He or she will tell you which blood pressure reading is dangerous. Lifestyle Changes: * Maintain a healthy weight. Get help to lose any extra pounds. * Cut back on salt. * Limit canned, dried, packaged, and fast foods. * Don't add salt to your food. * Season foods with herbs instead of salt when you cook. * Break the smoking habit. Enroll in a stop-smoking program to improve your chances of success. * Limit fatty foods. * Ask your doctor about having your lipid levels checked regularly. * Build up your activity according to your doctor's recommendation. * Ask your doctor when it's okay to resume sexual activity. * Tell your doctor about any erectile dysfunction (ED) medication you are taking. Some ED medications are not safe if you take certain heart medications. * Try to manage stress. Post Heart Catheterization Instructions: * Do not strain during bowel movements for the first 3 to 4 days after the procedure to prevent bleeding from the catheter insertion site in your groin. * Avoid heavy lifting (more than 10 pounds) and pushing or pulling heavy objects for the first 7 days after the procedure. * Do not participate in strenuous activities until cleared by cardiology. This includes most sports - jogging, golfing, tennis, bowling, etc. * You may climb stairs if needed, but walk up and down the stairs more slowly than usual. Pending Studies at Discharge: No Stand-Alone Forms: My [facility] [id number], Smoking Cessation Medications and DC Order Prescriptions: New (DME) Oxygen Home Liters Per Minute See Rx Instructions .ROUTE .MEDSUPPLY Qty: 1 0RF Rx Instructions: 2 liters NC O2 with ambulation/activity. atorvastatin 40 mg Tablet 40 mg PO QPM Qty: 30 5RF Rx Instructions: for cholesterol clopidogrel 75 mg Tablet 75 mg PO QAM Qty: 30 5RF Rx Instructions: for your heart stent aspirin 81 mg Tablet,Delayed Release (Dr/Ec) 81 mg PO QAM Qty: 90 3RF Rx Instructions: purchase [id number]-[id number]-rnlucoa nitroglycerin [Nitrostat] 0.4 mg Tablet, Sublingual 0.4 mg sublingual Q5M PRN (Reason: chest pain) Qty: 1 0RF Rx Instructions: max 3 tabs in 15 minutes nicotine 7 mg/24 hr Patch 24 Hour 7 mg transdermal QAM Qty: 30 0RF buprenorphine HCl 8 mg Tablet, Sublingual 4 mg sublingual TID Qty: 1 0RF metoprolol tartrate 25 mg Tablet 12.5 mg PO BID Qty: 60 5RF Rx Instructions: for your heart lisinopril 2.5 mg tablet 2.5 mg PO DAILY Qty: 30 5RF Rx Instructions: for your heart furosemide [Lasix] 20 mg tablet 20 mg PO QAM PRN (Reason: water weight gain) Qty: 30 0RF Continued cyclobenzaprine 5 mg tablet 5 mg PO TID PRN (Reason: muscle spasm) Qty: 20 0RF albuterol sulfate 1.25 mg/3 mL solution for nebulization 1.25 mg inhalation QID PRN (Reason: shortness of breath or wheezing) Qty: 90 2RF duloxetine 30 mg capsule,delayed release(DR/EC) 30 mg PO DAILY Qty: 30 2RF Rx Instructions: Take with Duloxetine 60 mg to = 90 mg. duloxetine 60 mg capsule,delayed release(DR/EC) 60 mg PO DAILY Qty: 30 2RF Rx Instructions: po daily clindamycin phosphate 1 % solution 1 applic topical DAILY Qty: 30 1RF albuterol sulfate 90 mcg/actuation HFA aerosol inhaler 2 puff inhalation Q6H PRN (Reason: shortness of breath or wheezing) Qty: 18 3RF Trelegy Ellipta 100-62.5-25 mcg blister with device 1 inh inhalation Q24H Qty: 60 2RF (DME) compressor, for nebulizer Device See Rx Instructions .Route Qty: 1 0RF Rx Instructions: As directed Discontinued prednisone 20 mg tablet 40 mg PO DAILY 5 Days Qty: 10 0RF azithromycin 250 mg tablet See Rx Instructions PO .COMPLEX Qty: 6 0RF Rx Instructions: take 500 mg today (day 1), then 250 mg for 4 days (days 2-5) PO Discharge Orders: Discharge Order (Routine); Ordered 09/28/21 Ordered By: Indio Hernandez/Other Patient Handouts: CAD Admission Data Admit Date/Time: 09/23/21 14:41 Attending Provider: Indio Flaherty Admit Provider: Elroy Alvarez Primary Care Provider: Carson Baldwin Other Providers: Vinh Quiñones ; Walt Oliva ; Gaston Rodriguez Other Interventions: Discharge Summary Assessment (RN) Last Done: 09/28/21 17:48 Coding Level of Care Code D/C DAY MANAGEMENT >[address] elevation (STEMI) myocardial infarction I21.3 Involved coronary artery: unspecified coronary artery Acute right-sided congestive heart failure I50.811 Junctional rhythm I49.8 Back pain M54.9; G89.29 Back pain laterality: unspecified Back pain location: back pain in unspecified location Chronicity: chronic COPD (chronic obstructive pulmonary disease) J44.9 Depression F32.9 Acute hyponatremia E87.1 Tobacco dependence F17.200 Dependence on supplemental oxygen when ambulating Z99.81 Candidiasis of mouth and esophagus B37.81; B37.0 Prediabetes R73.03
== END 2021-09-28 18:23 | disposition home or self-care (01) | DRG 246 ==
LOC: ED 09:15 → CC 13:47 → 1E 13:47 → SUATTDRO 14:41 → 2E 09-24 10:52
DX: M54.9 Dorsalgia, unspecified; M47.896 Other spondylosis, lumbar region; I21.11 ST elevation (STEMI) myocardial infarction involving right coronary artery; E87.1 Hypo-osmolality and hyponatremia; I34.0 Nonrheumatic mitral (valve) insufficiency; I50.810 Right heart failure, unspecified; F32.A Depression, unspecified; I25.119 Atherosclerotic heart disease of native coronary artery with unspecified angina pectoris; J44.9 Chronic obstructive pulmonary disease, unspecified; M96.0 Pseudarthrosis after fusion or arthrodesis; F17.210 Nicotine dependence, cigarettes, uncomplicated; I50.31 Acute diastolic (congestive) heart failure; Z98.1 Arthrodesis status